=== PATIENT | male | born 1955 | race Caucasian/White ===

== ENCOUNTER → 2017-08-31 08:41 | Outpatient (CLI) | payer OTHER, SELFPAY ==
--- NOTE | 2017-08-31 | CT_ITS ---
CT abdomen pelvis wo/w con CLINICAL INDICATION: Left lower quadrant pain ORDERING PHYSICIAN: Bandar Dela Cruz MD PATIENT AGE: 61 years COMPARISON: None TECHNIQUE: Axial images obtained with sagittal and coronal reformats. PROCEDURE: Oral Contrast: Gastroview IV Contrast: 75 mL [id number]. FINDINGS: The lung bases are clear. The liver, spleen, adrenal glands, and pancreas have an unremarkable appearance. There are small left renal cysts. No hydronephrosis, suspicious renal mass, or obstructing ureteral calculus evident. Unremarkable appendix. No evidence of intestinal obstruction or free air. There is mild mucosal thickening involving the distal descending colon and sigmoid colon. This could be due to nondistention or due to mild colitis. No evidence of diverticulitis. Postsurgical changes are present involving the right lower abdominal wall which The prostate is enlarged measuring 6.5 x 5.5 cm AP and transverse. No pelvic or abdominal adenopathy. No acute bony anomalies. There is a Schmorl's node involving the superior endplate of L4 with mild sclerosis around the defect. There are few small inguinal lymph nodes IMPRESSION: 1. Mild thickening of the distal descending and sigmoid colon which could be due to nondistention or mild colitis. No evidence of diverticulitis. 2. Enlarged prostate 3. Other nonacute findings as described above.
[2017-08-31 09:39] LABS: Blood Urea Nitrogen 21 mg/dL (7-18); Creatinine,Serum 1.02 mg/dL (0.70-1.30); Estimated Glomerular Filt Rate 74 ml/min (>60); GFR (African American) 90 ML/MIN (>60)
--- NOTE | 2017-08-31 11:48 | HMH.ITSHM ---
blood pressure pill prostate pill
== END ==
PROVIDERS: PCP Internal Medicine Adolescent Medicine; Visit Provider Internal Medicine Adolescent Medicine
DX: R10.32 Left lower quadrant pain (principal)
CPT/HCPCS: 36415; 74170; 74178; 82565; 84520; Q9967

== ENCOUNTER 2017-11-07 09:39 | Day surgery (SDC) | payer OTHER, SELFPAY ==
[2017-11-02 11:06] VITALS: BMI 29.1
[2017-11-07] VITALS (8 sets, daily range): BP systolic 115–142; BP diastolic 60–80; PULSE 45–52; RESP 18; TEMP 36.6–36.7; O2SAT 96–99
--- NOTE | 2017-11-07 12:52 | HMH.PROC ---
[facility] Procedure Note Procedure Note:: Colonoscopy Procedure Report: Colonoscopy with cold snare polypectomy Endoscopist: Meliton Guerrero II, MD Referring physician: Bandar Dela Cruz M.D. Date of Procedure: November 07, 2017 Equipment: Olympus 180 variable stiffness pediatric colonoscope Sedation: MAC sedation Indication: Mr. Palomino is a 61-year-old gentleman who is here for initial screening colonoscopy. He has had a few bouts of diverticulitis and his last bout was 3 months ago. He received antibiotics. He does have some intermittent rectal bleeding from internal hemorrhoids. He has some chronic constipation. He reports no weight loss, change in his bowel habits or family history of colon cancer. Procedure: Prior to the procedure, a history and physical exam was performed, and patient's medications and allergies were reviewed. The risks, benefits and alternatives of the sedation and procedure were discussed with the patient. All questions were answered and informed consent was obtained. The patient was brought to the procedure room. Patient identification and proposed procedure were verified by the physician and the nurse. The patient was placed in a left lateral decubitus position and the scope was passed under direct vision. Throughout the procedure, the patient's blood pressure, pulse, and oxygen saturations were monitored continuously. The colonoscopy was accomplished without difficulty. The patient tolerated the procedure well. Findings: On digital rectal examination there was normal rectal tone. There were no external hemorrhoids. The colonoscope was introduced through the anal canal to the rectum and advanced to the cecum. The ileocecal valve and appendiceal orifice were identified. The scope was advanced a short distance into the ileum which appeared grossly normal. The scope was then withdrawn into the colon. There were 3 colon polyps identified in the ascending ?1, descending ?1 and sigmoid ?1. These ranged in size from 5-8 mm and were all removed via cold snare polypectomy and all placed in the same formalin jar. There were scattered diverticuli throughout the descending and sigmoid colon (LEFT colon). The rectum itself was normal. Upon retroflexion within the rectum there were grade 2 internal hemorrhoids. Impression: 1. Colonic polyps ?3 2. Left-sided diverticulosis 3. Grade 2 internal hemorrhoids Plan: I will follow up the polyp pathology and recommend repeat colonoscopy again in 5 years based upon the polyp histology. I would encourage fiber bulk supplementation with Konsyl powder (1 tablespoon) every morning on a long-term daily maintenance basis.
--- NOTE | 2017-11-07 15:27 | HMH.ANESCL ---
[facility] Anesthesia Checklist - Patient Identification Patient Identification: Arm Band - Structural Data Admitted From: Home Planned Operative Procedure/s: colonoscopy Consent for Planned Operative Procedure(s) Verified: Yes Verified Documents: Surgical Consent, History and Physical - NPO Status Verified Time NPO: 00:00 - Additional verifications Anesthesia Reactions: No - Airway Assessment C-Spine Mobility Assessed: Yes (mp2) TMJ Mobility Assessed: Yes Dentition: Good Dentition - Neurological Assessment Level of Consciousness: Awake, Alert - Anesthesia Plan Anesthesia Risk discussed: Yes Anesthesia Plan: Verified ASA Class: I Anesthesia Type: MAC [facility] Anesthesia HX I have reviewed the patient's past medical history: Yes Medical History: Reports:: Hypertension Denies:: Diabetes Mellitus Type 1, Diabetes Mellitus Type 2, Internal Pacemaker, Lung Disease, Seizures Other Medical History: Reports: Sinus Problems Laterality Cases: Left: Arthroscopy Knee Other Surgeries: Yes: Hernia Repair. No: Pacemaker *Family Hx:: Cancer, Heart Attack
== END 2017-11-07 13:50 | disposition home or self-care (01) ==
LOC: OUTP 09:42
PROVIDERS: Family Provider Internal Medicine Adolescent Medicine; PCP Internal Medicine Adolescent Medicine; Visit Provider Internal Medicine Gastroenterology
PROC: 0DJD8ZZ Inspection of Lower Intestinal Tract, Via Natural or Artificial Opening Endoscopic (ICD-10-PCS; CPT 45378; principal; 2017-11-07 11:00)
DX: Z12.11 Encounter for screening for malignant neoplasm of colon (principal); K63.5 Polyp of colon; K57.30 Diverticulosis of large intestine without perforation or abscess without bleeding; K64.1 Second degree hemorrhoids
CPT/HCPCS: 45385

== ENCOUNTER → 2017-12-07 08:37 | Outpatient (CLI) | payer OTHER, SELFPAY ==
--- NOTE | 2017-12-07 08:39 | XR_ITS ---
XR foot wt bearing LT 3V HISTORY: Left foot pain ORDERING PHYSICIAN: Seema Montiel DPM PATIENT AGE: 61 years COMPARISON: None FINDINGS: No fracture or dislocation. No lytic or blastic change. There is normal mineralization.. The joint spaces are well-preserved. No significant degenerative/arthritic changes. No erosive changes evident. There is a small calcaneal spur at 6 mm. A linear calcific density is present along the dorsal distal aspect of the first metatarsal as seen on the lateral view measuring 2 mm nonspecific. IMPRESSION: No acute finding. Please see above for detail
--- NOTE | 2017-12-07 08:39 | XR_ITS ---
XR foot wt bearing RT 3V HISTORY: Right foot pain ORDERING PHYSICIAN: Seema Montiel DPM PATIENT AGE: 61 years COMPARISON: None FINDINGS: No fracture or dislocation. No lytic or blastic change. There is normal mineralization.. The joint spaces are well-preserved. No significant degenerative/arthritic changes. No erosive changes evident. There is a small calcaneal spur . Hypertrophic changes are present at the distal aspect of the first metatarsal IMPRESSION: 1. No acute finding. 2. Small calcaneal spur with mild hypertrophic changes of the distal aspect of the first metatarsal
== END ==
PROVIDERS: PCP Internal Medicine Adolescent Medicine; Visit Provider Podiatrist
DX: B35.1 Tinea unguium (principal); M79.673 Pain in unspecified foot
CPT/HCPCS: 73630; 87102; 87206; 87220

== ENCOUNTER 2018-08-12 13:54 | Observation (INO) ==
--- NOTE | 2018-08-12 14:38 | History & Physical Report ---
*Admission Date: 08/12/18 *Chief complaint: Syncope and fascicular block *History of present illness: Mr. Palomino is a 62-year-old male who presented to clinic earlier today due to syncope last night at a restaurant. Patient states that he was eating at a barbecue restaurant when he began to feel confused, dizzy, and next thing he knows he woke up on the floor. He reports his noted that he had a blank stare on his face prior to passing out. He was out momentarily before coming to. EMS was contacted and upon arrival perform an EKG that was essentially normal per his report, blood sugar of 70. He declined further treatment and transfer to an ER at that time. He presented to clinic this morning for assessment where EKG was obtained showing partial right bundle branch block and left anterior fascicular block. In the setting of syncope with these findings, patient was admitted for further assessment and cardiology consult. Patient being monitored on telemetry. Cardiology to see this afternoon. Has chest pain, shortness of breath, palpitations, fever, cough, lower extremity edema. Does complain of still feeling a little "off" and not quite at baseline [facility] History I have reviewed the patient's past medical history: Yes Medical History: Reports:: Hypertension Denies:: Diabetes Mellitus Type 1, Diabetes Mellitus Type 2, Internal Pacemaker, Lung Disease, Seizures Other Medical History: Reports: Sinus Problems Laterality Cases: Left: Arthroscopy Shoulder Other Surgeries: Yes: Hernia Repair. No: Pacemaker Amputation: No Fractures: No - *Social History Smoking Status: Never smoker Alcohol Intake: never Alcohol Intake Frequency:: other *Family Hx:: Cancer, Heart Attack Review of Systems - Review of Systems Review of systems:: pertinent systems reviewed and negative unless documented below Meds Home Medications Medication Instructions Recorded Confirmed Type bisoprolol fumarate 5 mg tablet 2.5 mg PO DAILY 30 Days #30 10/17/17 06/05/18 History tamsulosin 0.4 mg capsule 0.4 mg PO DAILY 30 Days #30 10/17/17 06/05/18 History linaclotide 72 mcg capsule PO 30 Days #30 12/07/17 06/05/18 History meloxicam 15 mg tablet PO 30 Days #30 12/07/17 06/05/18 History diclofenac 1 % topical gel 4 g TOPICAL QID #30 g 03/21/18 06/05/18 Rx ciclopirox 8 % topical solution 1 applic TOPICAL DAILY 60 Days 06/05/18 06/05/18 Rx #6.6 ml meloxicam 15 mg tablet 15 mg PO ONCE #30 tab 06/05/18 06/05/18 Rx Allergies Allergy/AdvReac Type Severity Reaction Status Date / Time No Known Allergies Allergy Verified 06/05/18 11:11 Exam - *Routine HEENT Exam Head: Present: normocephalic, atraumatic Eye: Present: EOMI, PERRL ENT: Present: mucous membranes moist - *Routine Neck Exam Present: supple. Absent: JVD - *Routine Respiratory Exam Present: CTA bilaterally. Absent: prolonged expiratory phase, rales, wheezes, crackles - *Routine Cardiovascular Exam Present: RRR, Normal S1, Normal S2. Absent: murmur - *Routine Abdominal Exam Present: soft, normoactive bowel sounds. Absent: tenderness - *Routine Rectal Exam Patient deferred: visual exam - *Routine Exam Patient deferred: penile exam - *Routine Extremities Exam Absent: cyanosis, clubbing, edema - *Routine Skin Exam Present: intact. Absent: cyanosis, erythema - *Routine Neurological Exam Present: alert, oriented X3. Absent: altered mental status Assessment and Plan (1) Left anterior fascicular block Current visit: Yes Status: Acute Category: Medical Code(s): I44.4 - Left anterior fascicular block Admitted to medicine Cardiology consulted Monitor on telemetry overnight Does not meet gus criteria for pacer placement as his right bundle branch block is incomplete. If no further events, will proceed with outpatient cardiac monitoring. If has further episodes such as bradycardia or syncope, will proceed to [facility]istered [facility] for placement of pacemaker tomorrow. (2) Incomplete right bundle branch block (RBBB) determined by eric ctrocardiography Current visit: Yes Status: Acute Category: Medical Code(s): I45.10 - Unspecified right bundle-branch block (3) Hypertension Current visit: Yes Status: Chronic Qualifiers: Hypertension type: essential hypertension Qualified Code(s): I10 - Essential (primary) hypertension Category: Medical Code(s): I10 - Essential (primary) hypertension Continue home regimen (4) Syncope Current visit: Yes Status: Acute Category: Medical Code(s): R55 - Syncope and collapse
[2018-08-12 15:18] LABS: Basophils # 0.1 K/mm3 (0-0.2); Basophils % 0.8 % (0.1-2.0); Eosinophils # 0.2 K/mm3 (0.0-0.4); Eosinophils % 2.7 % (0.1-12.0); Hemoglobin 14.3 g/dL (14.1-18.0); Lymphocytes # 1.3 K/mm3 (0.7-4.5); Lymphocytes % 18.8 % (10-50); Mean Corpuscular HGB Conc 31.7 g/dL (31.8-35.4); Mean Corpuscular Hemoglobin 28.4 pg (27.0-31.2); Mean Corpuscular Volume 89.5 fl (80-94); Mean Platelet Volume 7.5 fl (7.4-10.4); Monocytes # 0.4 K/mm3 (0.1-1.0); Monocytes % 5.7 % (1.7-9.3); Neutrophils # 4.9 K/mm3 (1.8-7.8); Neutrophils % 72.1 % (37.0-80.0); Platelet Count 184 K/mm3 (142-424); Red Blood Count 5.02 M/mm3 (4.60-6.20); Red Cell Distribution Width 13.6 % (11.5-17.5); White Blood Count 6.8 K/mm3 (4.8-10.8)
[2018-08-12 15:22] LABS: INR 0.97 (0.9-1.1)
[2018-08-12 15:40] LABS: Anion Gap 12.1 mEq/L (5-15); Calcium 8.8 mg/dL (8.5-10.1); Potassium 4.1 mmoL/L (3.5-5.1)
--- NOTE | 2018-08-12 23:33 | Discharge Summary ---
General - General Admission date:: 08/12/18 Discharge date: 08/13/18 HPI HPI: Mr. Palomino is a 62-year-old male who presented to clinic earlier today due to syncope last night at a restaurant. Patient states that he was eating at a barbecue restaurant when he began to feel confused, dizzy, and next thing he knows he woke up on the floor. He reports his noted that he had a blank stare on his face prior to passing out. He was out momentarily before coming to. EMS was contacted and upon arrival perform an EKG that was essentially normal per his report, blood sugar of 70. He declined further treatment and transfer to an ER at that time. He presented to clinic this morning for assessment where EKG was obtained showing partial right bundle branch block and left anterior fascicular block. In the setting of syncope with these findings, patient was admitted for further assessment and cardiology consult. Patient being monitored on telemetry. Cardiology to see this afternoon. Has chest pain, shortness of breath, palpitations, fever, cough, lower extremity edema. Does complain of still feeling a little "off" and not quite at baseline Hospital Course Hospital Course: Mr. Lei was admitted to medicine for management of his syncope and EKG findings concerning for bifascicular block. Etiology was consulted upon admission. Further review of EKG with assistance of cardiology should patient did not have complete bifascicular block however was a partial bike this evening strict EKG criteria for placement of a pacemaker. Patient was monitored on telemetry overnight for further events and for symptomatic bradycardia. He had no further events, felt improved the following morning of admission. Decision was made with cardiology to have the patient follow-up on Tuesday in the outpatient setting to have the placement of a "guardian" device (prolonged athletic monitor) to assess for further episodes. Patient remained hemodynamically stable. Denied confusion, chest pain, shortness of breath, palpitations, syncope, fatigue, focal neurologic changes. Otherwise at his baseline. Stable for discharge home Objective Vital signs: Temp Pulse Resp BP Pulse Ox 98.4 F 55 L 18 126/65 96 08/12/18 20:00 08/12/18 20:00 08/12/18 20:00 08/12/18 20:00 08/12/18 20:00 Narrative: Well-appearing man of stated age Alert and oriented x3, no focal neurologic deficits, CN II through XII intact Heart rate regular, pulses 2+ bilaterally and in upper and lower extremities, no murmurs rubs or gallops Clear to auscultation, no wheeze rhonchi or crackles Abdomen soft, nontender No lower extremity edema, cyanosis, clubbing, dry and intact Patient with normal mood and affect, Results Labs on day of discharge: Labs from last 24 hours 08/12/18 08/12/18 08/12/18 15:08 15:08 15:08 WBC 6.8 RBC 5.02 Hgb 14.3 Hct 45.0 MCV 89.5 MCH 28.4 MCHC 31.7 L RDW 13.6 Plt Count 184 MPV 7.5 Neut % (Auto) 72.1 Lymph % (Auto) 18.8 Greer % (Auto) 5.7 Eos % (Auto) 2.7 Baso % (Auto) 0.8 Neut # (Auto) 4.9 Lymph # (Auto) 1.3 Greer # (Auto) 0.4 Eos # (Auto) 0.2 Baso # (Auto) 0.1 PT 10.0 INR 0.97 Sodium 139 Potassium 4.1 Chloride 104 Carbon Dioxide 27 Anion Gap 12.1 BUN 27 H Creatinine 1.13 Estimated Creat Clear 91 Estimated GFR 66 Est GFR ( Amer) 80 Glucose 94 Calcium 8.8 DS: Diagnosis - Discharge Diagnosis (1) Left anterior fascicular block Status: Acute (2) Incomplete right bundle branch block (RBBB) determined by electrocardiography Status: Acute (3) Hypertension Status: Chronic (4) Syncope Status: Acute Problem details: Follow-up with cardiology Tuesday for placement of cardiac monitoring device. No episodes during admission. Stable for discharge home. Patient to continue bisoprolol, 2.5 mg once a day. Follow-up with PCP within the next week Discharge Plan - Patient Discharge Instructions Patient Instructions: DI for Syncope in Adults (Fainting) - Follow up Plan Follow up with: Anthony Jimenez MD [Staff Physician] - 1 week Hernandez Shirley MD [Staff Physician] - (Tuesday08/14/18) Disposition: Home, Self-[facility] Medications: Home Medications Medication Instructions Recorded Confirmed Type bisoprolol fumarate 5 mg tablet 2.5 mg PO DAILY 30 Days #30 10/17/17 08/12/18 History tamsulosin 0.4 mg capsule 0.4 mg PO DAILY 30 Days #30 10/17/17 08/12/18 History meloxicam 15 mg tablet 15 mg PO DAILY 30 Days #30 12/07/17 08/12/18 History diclofenac 1 % topical gel 4 g TOPICAL QID #30 g 03/21/18 08/12/18 Rx Prescriptions/Medication Reconciliation: Continue bisoprolol fumarate 5 mg tablet 2.5 mg PO DAILY 30 Days #30 tamsulosin 0.4 mg capsule 0.4 mg PO DAILY 30 Days #30 meloxicam 15 mg tablet 15 mg PO DAILY 30 Days #30 diclofenac 1 % topical gel 4 g TOPICAL QID #30 g
--- NOTE | 2018-08-13 10:49 | Pharmacy Consult Notes ---
[facility] Pharmacy VTE Monitoring - Patient Demographics Admission date: 08/12/18 Report Date: 08/13/18 Time: 10:49 Allergies/Adverse Reactions: Patient Allergies No Known Allergies Allergy (Verified 06/05/18 11:11) Height: 1.83 m Weight: 94.432 kg Patient Problems: Current Active Problems Left anterior fascicular block (Acute) Incomplete right bundle branch block (RBBB) determined by electrocardiography (Acute) Hypertension (Chronic) Syncope (Acute) - VTE Risk Labs: VTE Related Lab Results Hgb 14.3 g/dL (14.1-18.0) 08/12/18 15:08 Hct 45.0 % (42.0-52.0) 08/12/18 15:08 Plt Count 184 K/mm3 (142-424) 08/12/18 15:08 PT 10.0 seconds (9.4-11.8) 08/12/18 15:08 INR 0.97 (0.9-1.1) 08/12/18 15:08 BUN 27 mg/dL (7-18) H 08/12/18 15:08 Creatinine 1.13 mg/dL (0.70-1.30) 08/12/18 15:08 Estimated Creat Clear 91 mL/min (50-200) 08/12/18 15:08 Was VTE Risk Assessment Performed: No VTE Score: 1 VTE Risk Level: Very Low Risk - Prophylaxis VTE Prophylaxis Ordered?: Yes Types of VTE Prophylaxis: TEDS Knee High Location of Applied Device: Bilateral Lower Extremeties
== END 2018-08-13 10:35 | disposition home or self-care (01) ==
LOC: 2ND
PROVIDERS: ADMIT Internal Medicine Adolescent Medicine; ATTEND Internal Medicine Adolescent Medicine
CPT/HCPCS: 80048; 85025; 85610; G0378

== ENCOUNTER → 2018-08-14 10:39 | Outpatient (CLI) | payer OTHER, SELFPAY | PROVIDERS: PCP Internal Medicine Adolescent Medicine; Visit Provider Nurse Practitioner Family | DX: R55 Syncope and collapse (principal); Z82.49 Family history of ischemic heart disease and other diseases of the circulatory system; R94.31 Abnormal electrocardiogram [ECG] [EKG]; I10 Essential (primary) hypertension | CPT/HCPCS: 93270 ==

== ENCOUNTER → 2018-08-22 07:40 | Outpatient (CLI) | payer OTHER, SELFPAY ==
--- NOTE | 2018-08-22 07:45 | CA_ITS ---
PROCEDURE: 2-D M-mode and color Doppler study INDICATIONS FOR THE TEST: Chest pain COPD Heart Murmur Tobacco Smoking Palpitations Fatigue SyncopeX Edema HypertensionXDiabetes Mellitus Rheumatic Fever SOB THOMAS Obesity Hyperlipidemia Family History HD Additional History ABN EKG PATIENT INFORMATION HEIGHT:75 WEIGHT:214 GENDER: Male B/P:134/68 2-D/M-MODE INTERPRETATION: 2-D MEASUREMENTS OBSERVED VALUES IN CMS Right Ventricular Dimension (RVDd) 2.4 Interventricular Septum (Thickness)(IVsd) 1.0 Left Ventricular Internal Dimensions(LVIDd) 5.4 Left Ventricular Posterior Wall (Thickness)(LVPWd) 1.0 Aortic Root 3.9 Aortic Cusp Separation 2.2 Left Atrial Dimensions (LAD) 3.2 2D 1. Left atrium is mildly enlarged, left ventricle is normal size, there is mild concentric left ventricular hypertrophy, visually estimated to 55% % with no regional wall motion abnormality. 2. The right atrium and right ventricle are normal size and contractility. 3. The aortic valve is minimally thickened and fibrosed, the aortic root is mildly enlarged. 4. The mitral and tricuspid valve are grossly normal. 5. The pulmonic valve is poorly visualized. 6. No significant pericardial effusion noted. DOPPLER INTERROGATION: Doppler interrogation of the aortic, mitral and tricuspid valve reveals presence of mild mitral and tricuspid regurgitation, tricuspid regurgitation jet velocity is inadequate for calculation of ventricular systolic pressure, grade 1 diastolic dysfunction seen with tissue Doppler evidence of raised left atrial pressure. CONCLUSION: 1. Mildly enlarged left atrium, normal left ventricular size, mild concentric left ventricular hypertrophy, visually estimated ejection fraction 55% with no regional wall motion abnormality, grade 1 diastolic dysfunction seen with tissue Doppler evidence of raised left atrial pressure. 2. Mildly enlarged right ventricle normal contractility. 3. Mild mitral and tricuspid regurgitation. 4. No significant pericardial effusion noted.
== END ==
PROVIDERS: PCP Internal Medicine Adolescent Medicine; Visit Provider Internal Medicine
DX: I10 Essential (primary) hypertension (principal); R55 Syncope and collapse; R94.31 Abnormal electrocardiogram [ECG] [EKG]; Z82.49 Family history of ischemic heart disease and other diseases of the circulatory system
CPT/HCPCS: 93017; 93306

== ENCOUNTER → 2019-05-04 11:30 | Outpatient (CLI) | payer OTHER, SELFPAY ==
[2019-05-04 12:14] LABS: Basophils % 0.5 % (0.1-2.0); Eosinophils # 0.1 K/mm3 (0.0-0.4); Eosinophils % 1.5 % (0.1-12.0); Hematocrit 44.8 % (42.0-52.0); Hemoglobin 14.1 g/dL (14.1-18.0); Lymphocytes # 1.1 K/mm3 (0.7-4.5); Lymphocytes % 18.4 % (10-50); Mean Corpuscular HGB Conc 31.5 g/dL (31.8-35.4); Mean Corpuscular Hemoglobin 28.4 pg (27.0-31.2); Monocytes # 0.3 K/mm3 (0.1-1.0); Monocytes % 5.4 % (1.7-9.3); Neutrophils # 4.3 K/mm3 (1.8-7.8); Neutrophils % 74.2 % (37.0-80.0); Platelet Count 231 K/mm3 (142-424); Red Blood Count 4.98 M/mm3 (4.60-6.20); Red Cell Distribution Width 13.5 % (11.5-17.5); White Blood Count 5.8 K/mm3 (4.8-10.8)
[2019-05-04 13:50] LABS: Alanine Aminotransferase 19 U/L (12-78); Albumin Level 4.1 gm/dL (3.4-5.0); Alkaline Phosphatase 58 U/L (46-116); Anion Gap 14.5 mEq/L (5-15); Aspartate Amino Transferase 18 U/L (15-37); Bilirubin,Direct 0.2 mg/dL (0.0-0.2); Bilirubin,Indirect 0.6 mg/dL (0.0-0.9); Bilirubin,Total 0.8 mg/dL (0.2-1.0); Blood Urea Nitrogen 24 mg/dL (7-18); Calcium 9.1 mg/dL (8.5-10.1); Carbon Dioxide 25 mmol/L (21.0-32.0); Chloride 102 mmol/L (98-107); Cholesterol 190 mg/dL (140-200); Estimated Glomerular Filt Rate 75 ml/min (>60); Free T4 (Free Thyroxine) 1.27 ng/dl (0.76-1.46); GFR (African American) 91 ML/MIN (>60); Glucose 86 mg/dL (74-106); HDL Cholesterol 64 mg/dL (27-67); LDL Cholesterol 118 mg/dL (0-130); Potassium 4.5 mmoL/L (3.5-5.1); Sodium 137 mmol/L (136-145); Thyroid Stimulating Hormone 1.15 uIU/ml (0.358-3.740); Total Protein,Serum 6.8 gm/dL (6.4-8.2); Triglycerides 40 mg/dL (30-200); VLDL Cholesterol 8 mg/dL (0-40)
== END ==
PROVIDERS: Visit Provider Nurse Practitioner Family
DX: I10 Essential (primary) hypertension (principal); R06.00 Dyspnea, unspecified; R07.89 Other chest pain
CPT/HCPCS: 36415; 80048; 80061; 80076; 84439; 84443; 85025

== ENCOUNTER → 2019-05-16 12:50 | Outpatient (CLI) | payer OTHER, SELFPAY ==
--- NOTE | 2019-05-16 | CA_ITS ---
APPROVED REPORT Exam: Exercise Treadmill Technologist: Evelyn Obrien Ht: 6 ft 0 in Wt: 218 lbs BSA: 2.21 m2 HR: 67 bpm BP: 144/78 mmHg Indications: Chest pain, Shortness of Breath Medical History Medications: Diclofenac,,,,, Stress Test Details Test: Manual Treadmill HR Resting HR: 75 bpm Max Heart Rate (APMHR): 157 bpm Max HR Achieved: 151 bpm Target HR (85% APMHR): 133 bpm % of APMHR: 96 Recovery HR: 92 bpm BP Resting BP: 144.0/78.0 mmHg Max BP: 175.0/70.0 mmHg Recovery BP: 146.0/74.0 mmHg ECG Clinical Exercise duration: 09:28 min Highest Stage Achieved: Exercise capacity: 10.1 METs Stress ECG Conclusion Resting ECG: Normal sinus rhythm, poor R wave progression Patient exercised 9:28 Farshad Protocol Test stopped due to shortness of air, fatigue Symptoms: No chest pain Arrhythmias/Ectopy: None ST-T Changes: Allowing for motion artifact, the ST response to exerciseis normal. Test Summary RECOVERY 03:00 0.0 0.0 106 . . . . REST 13:04 0.0 0.0 75 . 144/ 78 . . Stage 1 01:00 10.0 1.7 93 . . . . Stage 1 02:00 10.0 1.7 103 . . . . Stage 1 03:00 10.0 1.7 100 . 156/ 70 . . Stage 2 01:00 12.0 2.5 113 . . . . Stage 2 02:00 12.0 2.5 118 . . . . Stage 2 03:00 12.0 2.5 120 . 175/ 70 . . Stage 3 01:00 14.0 3.4 130 . . . . Stage 3 02:00 14.0 3.4 138 . . . . Stage 3 03:00 14.0 3.4 142 . 172/ 70 . . Stage 4 00:28 16.0 4.2 117 . . . Stop exercise at 09:28 RECOVERY . . . . . . . Protocol changed to Manual Treadmill RECOVERY 01:00 0.0 0.0 130 . . . . RECOVERY 02:00 0.0 0.0 113 . . . . RECOVERY 03:00 0.0 0.0 106 . . . . RECOVERY 04:00 0.0 0.0 93 . . . . RECOVERY 05:00 0.0 0.0 91 . . . . RECOVERY 06:00 0.0 0.0 96 . . . . RECOVERY 06:10 0.0 0.0 94 . . . . Electronically signed by : Danis Forman, 05/17/2019 15:25:39
--- NOTE | 2019-05-16 12:52 | CA_ITS ---
APPROVED REPORT EXAM: Comprehensive 2D, Doppler, and color-flow Echocardiogram Manager Of Photography: Tahmina Mcdowell RT(R) Ht: 6 ft 0 in Wt: 215lbs BSA: 2.20 BP: 137/85 mmHg Indications: Shortness of Breath R06.02, Hypertension I10, Syncope R55, Chest Pain R07.89 Echo Findings The Pre-Stress Echocardiogram showed normal left ventricular contractility with an estimated Ejection Fraction of about >55%. The Post-Stress Echocardiogram showed normal left ventricular contractility with an estimated Ejection Fraction of about 60-65%. There is no exercise-induced segmental wall motion abnormality to suggest underlying ischemic heart disease. Other Information Study Quality: Fair Conclusion 1. The resting echocardiogram showed normal left ventricular systolic function. 2. With exercise there is increase in contractility of all the segments of the myocardium with hyperdynamic left ventricular systolic response, no segmental wall motion abnormality to suggest underlying ischemic heart disease.
== END ==
PROVIDERS: PCP Internal Medicine Adolescent Medicine; Visit Provider Nurse Practitioner Family
DX: I10 Essential (primary) hypertension (principal); R06.00 Dyspnea, unspecified; R07.89 Other chest pain
CPT/HCPCS: 93017; 93350

== ENCOUNTER → 2019-09-24 12:44 | Outpatient (CLI) | payer OTHER, SELFPAY ==
--- NOTE | 2019-09-24 12:48 | XR_ITS ---
PROCEDURE: XR CHEST 2V CLINICAL HISTORY: COUGH COMPARISON: CXR CHEST(2 VIEWS-NOT PORTABLE) from 05/29/2016 CXR CHEST(2 VIEWS-NOT PORTABLE) from 06/09/2016 FINDINGS: The cardiomediastinal silhouette and pulmonary vascularity are within normal limits. The lungs are clear without infiltrates, suspicious nodules, or pleural effusions. Are old fractures of the right 5th 6th and 7th ribs IMPRESSION: No acute findings. Dictated by: Hugh Bella MD 09/24/2019 14:06 Electronically signed by Hugh Bella MD in [place] 09/24/2019 14:06
== END ==
PROVIDERS: PCP Internal Medicine Adolescent Medicine; Visit Provider Internal Medicine Adolescent Medicine
DX: R05 Cough (principal)
CPT/HCPCS: 71046

== ENCOUNTER → 2019-10-01 08:28 | Outpatient (CLI) | payer OTHER, SELFPAY ==
--- NOTE | 2019-10-01 08:40 | US_ITS ---
PROCEDURE: US ABDOMEN COMPLETE CLINICAL INDICATION: RUQ PAIN,GB DISEASE COMPARISON: No exams were available for comparison FINDINGS: PANCREAS: Unremarkable. No obvious mass or abnormal fluid collection. No ductal dilatation LIVER: No focal liver lesions demonstrated. There is diffuse increased echogenicity consistent with fatty infiltration. Homogeneous echogenicity. No intrahepatic biliary ductal dilatation evident. There is appropriate direction of blood flow within a non dilated portal vein RIGHT KIDNEY: Unremarkable. Normal size and echogenicity. No hydronephrosis LEFT KIDNEY: Unremarkable. Normal size and echogenicity. No hydronephrosis GALLBLADDER: No gallstones, gallbladder wall thickening, pericholecystic fluid, or biliary dilatation. AORTA: No evidence of aneurysmal dilatation. SPLEEN: Unremarkable. Normal size and echogenicity ASCITES: None demonstrated. IMPRESSION: No acute findings. Fatty infiltration of the liver Dictated by: Cristo Nunez 10/01/2019 10:32 Electronically signed by Cristo Nunez in [place] 10/01/2019 10:32
== END ==
PROVIDERS: PCP Internal Medicine; Visit Provider Internal Medicine
DX: R10.11 Right upper quadrant pain (principal); K82.9 Disease of gallbladder, unspecified
CPT/HCPCS: 76700

== ENCOUNTER → 2020-04-22 10:41 | Outpatient (CLI) | payer OTHER, SELFPAY ==
[2020-04-22 10:45] LABS: Microscopic, Urine URINE MICROSCOPIC (MICROSCOPIC)
[2020-04-22 11:09] LABS: Basophils % 0.6 % (0.1-2.0); Eosinophils # 0.3 K/mm3 (0.0-0.4); Eosinophils % 4.4 % (0.1-12.0); Hematocrit 44.2 % (42.0-52.0); Hemoglobin 14.9 g/dL (14.1-18.0); Lymphocytes # 1.3 K/mm3 (0.7-4.5); Lymphocytes % 22.1 % (10-50); Mean Corpuscular HGB Conc 33.7 g/dL (31.8-35.4); Mean Platelet Volume 8.2 fl (7.4-10.4); Monocytes # 0.4 K/mm3 (0.1-1.0); Neutrophils # 3.9 K/mm3 (1.8-7.8); Platelet Count 215 K/mm3 (142-424); Red Blood Count 4.97 M/mm3 (4.60-6.20); Red Cell Distribution Width 13.8 % (11.5-17.5); White Blood Count 5.9 K/mm3 (4.8-10.8)
[2020-04-22 11:10] LABS: Appearance,Urine CLEAR (Clear); Bilirubin,Urine Negative (Negative); Blood, Urine Negative (Negative); Color,Urine DK YELLOW (Yellow); Glucose,Urine (UA) Negative (Negative); Ketones,Urine Negative (Negative); Leukocyte Esterase,Urine Negative (Negative); Nitrate,Urine Negative (Negative); PH,Urine 5.5 (5.0-8.5); Protein,Urine Negative (Negative); Specific Gravity, Urine >= 1.030 (1.005-1.030); Urobilinogen,Urine 0.2 EU/dl (0.2)
[2020-04-22 11:13] LABS: Chloride 106 mmol/L (98-107); Sodium 139 mmol/L (136-145)
[2020-04-22 11:14] LABS: Potassium 5.2 mmoL/L (3.5-5.1)
[2020-04-22 11:16] LABS: Alanine Aminotransferase 32 U/L (12-78); Alkaline Phosphatase 66 U/L (38-126); Amylase 75 U/L (30-110); Anion Gap 11.2 mEq/L (5-15); Aspartate Amino Transferase 26 U/L (17-59); Blood Urea Nitrogen 27 mg/dl (9-20); Carbon Dioxide 27 mmol/L (22.0-30.0); Estimated Glomerular Filt Rate 61 ml/min (>60); GFR (African American) 74 ML/MIN (>60)
[2020-04-22 11:17] LABS: Albumin/Globulin Ratio 1.4 (1.1-1.8); Calcium 9.4 mg/dl (8.4-10.2); Globulin 2.8 g/dL (1.3-3.2); Glucose 104 mg/dl (74-100); Total Protein,Serum 6.8 g/dl (6.3-8.2)
[2020-04-22 11:21] LABS: Bacteria,Urine Trace /lpf; Mucus,Urine 2+ /lpf; RBC,Urine Occasional #/hpf (0-3)
== END ==
PROVIDERS: Visit Provider Internal Medicine
DX: R10.9 Unspecified abdominal pain (principal)
CPT/HCPCS: 36415; 80053; 81001; 82150; 85025

== ENCOUNTER 2020-04-25 15:29 | Inpatient (IN) | payer OTHER, SELFPAY ==
[2020-04-25] VITALS (10 sets, daily range): BP systolic 124–160; BP diastolic 65–92; PULSE 61–94; RESP 16–20; TEMP 36.6–37.1; O2SAT 95–99; BMI 29.1; BMI 27.1
--- NOTE | 2020-04-25 15:38 | XR_ITS ---
PROCEDURE: XR CHEST PORTABLE CLINICAL HISTORY: pain COMPARISON: CT CHW CT CHEST W/ CONTRAST from 07/03/2015 CR CXR CHEST(2 VIEWS-NOT PORTABLE) from 05/29/2016 CR CXR CHEST(2 VIEWS-NOT PORTABLE) from 06/09/2016 DX XR CHEST 2V from 09/24/2019 FINDINGS: The cardiomediastinal silhouette and pulmonary vascularity are within normal limits. The lungs are clear without infiltrates, suspicious nodules, or pleural effusions. No acute bony abnormalities. IMPRESSION: No acute findings. Dictated by: Hugh Bella MD 04/25/2020 17:12 Hugh Bella MD in [facility] 04/25/2020 17:12
--- NOTE | 2020-04-25 15:39 | CT_ITS ---
PROCEDURE: CT ABDOMEN PELVIS W CON CLINICAL INDICATION: pain Generalized abdominal pain with nausea COMPARISON: CT ABDPELWW CT abdomen pelvis wo/w con from 08/31/2017 TECHNIQUE: IV Contrast: 75ML OPTIRAY 350 Oral Contrast None Axial images obtained with sagittal and coronal reformats. All CT scans at the facility use one or more dose reduction, viz: automated exposure control, ma/kV adjustment per patient size (including targeted exams where dose is matched to indication, i.e. head), or iterative reconstruction technique. FINDINGS: LOWER THORAX: No acute finding ABDOMEN & PELVIS: The liver has an unremarkable appearance. There is splenomegaly at 15 cm. Gallbladder is slightly distended. There is mild gastric distention of the stomach with fluid. The adrenal glands and pancreas have an unremarkable appearance. No renal or ureteral calculi. There is a 14 mm cyst in the upper pole of the left kidney. There is fluid-filled distal mildly distended small bowel loops which measure up to 3.5 cm in diameter. The small bowel is dilated throughout with the exception of the terminal ileum. There does appear to be a transition point in the right lower quadrant best seen on series 3, image 80 and also series 601, image 31. There is some questionable bowel wall thickening at this transition. Stool and gas is present within the colon. No free air is evident. The appendix has an unremarkable appearance. The colon is decompressed. The prostate measures 5.8 cm x 5.8 cm. Postsurgical changes are present in the right lower quadrant with surgical tacks along the abdominal wall. There does appear to be a small inguinal hernia containing fat on the right. There is mesh present in the right lower quadrant. No acute bony findings. A Schmorl's node is present along the superior endplate of L4. IMPRESSION: 1. Mildly dilated small bowel loops measuring up to 3.5 cm in diameter with air-fluid levels suspicious for small bowel obstruction with suspected transition point in the right lower quadrant. 2. Splenomegaly 3. Postsurgical changes of the right inguinal area with mesh in place with suspected small right direct inguinal hernia containing fat best seen on series 3, image 108 4. Enlarged prostate Dictated by: Hugh Bella MD 04/25/2020 17:04 Hugh Bella MD in [facility] 04/25/2020 17:04
[2020-04-25 15:47] LABS: Microscopic, Urine URINE MICROSCOPIC (MICROSCOPIC)
--- NOTE | 2020-04-25 15:47 | ECG_ITS ---
APPROVED REPORT Exam: Resting ECG HR:63 bpm ECG Measurements Heart Rate 63 AXES PA 172 P 20 QRSd 96 QRS -40 QT 402 T 16 QTc 411 <Conclusion> Normal sinus rhythm Left axis deviation Incomplete right bundle branch block Abnormal ECG Electronically signed by : Bandar Dela Cruz, 04/27/2020 15:00:22
[2020-04-25 15:48] LABS: Appearance,Urine CLEAR (Clear); Basophils % 0.4 % (0.1-2.0); Blood, Urine Negative (Negative); Chloride 101 mmol/L (98-107); Color,Urine YELLOW (Yellow); Eosinophils # 0.2 K/mm3 (0.0-0.4); Eosinophils % 2.4 % (0.1-12.0); Glucose,Urine (UA) Negative (Negative); Hematocrit 52.4 % (42.0-52.0); Hemoglobin 17.6 g/dL (14.1-18.0); Ketones,Urine 2+ (Negative); Leukocyte Esterase,Urine Negative (Negative); Lymphocytes # 1.3 K/mm3 (0.7-4.5); Lymphocytes % 14.3 % (10-50); Mean Corpuscular HGB Conc 33.6 g/dL (31.8-35.4); Mean Corpuscular Hemoglobin 29.9 pg (27.0-31.2); Mean Platelet Volume 7.5 fl (7.4-10.4); Monocytes # 0.5 K/mm3 (0.1-1.0); Monocytes % 5.9 % (1.7-9.3); Neutrophils # 6.7 K/mm3 (1.8-7.8); Neutrophils % 76.9 % (37.0-80.0); Nitrate,Urine Negative (Negative); PH,Urine 5.5 (5.0-8.5); Platelet Count 244 K/mm3 (142-424); Potassium 4.3 mmoL/L (3.5-5.1); Protein,Urine Negative (Negative); Red Blood Count 5.89 M/mm3 (4.60-6.20); Red Cell Distribution Width 13.7 % (11.5-17.5); Sodium 139 mmol/L (136-145); Specific Gravity, Urine >= 1.030 (1.005-1.030); Urobilinogen,Urine 0.2 EU/dl (0.2); White Blood Count 8.8 K/mm3 (4.8-10.8)
[2020-04-25 15:49] LABS: Bilirubin,Urine Negative (Negative)
[2020-04-25 15:51] LABS: Alanine Aminotransferase 25 U/L (12-78); Albumin/Globulin Ratio 1.5 (1.1-1.8); Alkaline Phosphatase 83 U/L (38-126); Amylase 82 U/L (30-110); Anion Gap 15.3 mEq/L (5-15); Aspartate Amino Transferase 28 U/L (17-59); Bilirubin,Total 1.3 mg/dl (0.2-1.3); Blood Urea Nitrogen 23 mg/dl (9-20); Calcium 10.6 mg/dl (8.4-10.2); Carbon Dioxide 27 mmol/L (22.0-30.0); Creatinine Clearance Estimated 86 mL/min (50-200); Estimated Glomerular Filt Rate 61 ml/min (>60); GFR (African American) 74 ML/MIN (>60); Globulin 3.3 g/dL (1.3-3.2); Glucose 108 mg/dl (74-100); Lipase 22 U/L (23-300); Total Protein,Serum 8.3 g/dl (6.3-8.2)
[2020-04-25 16:01] LABS: Mucus,Urine 1+ /lpf; Squamous Epithelial Cell,Urine Occasional #/hpf (0-5)
[2020-04-25 16:04] LABS: Troponin I < 0.01 ng/ml (0.00-0.034)
--- NOTE | 2020-04-25 16:15 | HMH.EDABDPAI ---
ED Disposition Clinical Impression: Small bowel obstruction due to adhesions Disposition: Admitted As Inpatient Condition on Discharge: Serious Instructions: DI for Acute Abdomen Referrals: El Werner [Primary Care Provider] - - Critical Care Critical Care Time: No Attestation: On 04/25/20, the high probability of a clinically significant, sudden or life threatening deterioration of the following system(s) required my full and direct attention, intervention and personal management. The time I documented below is in addition to time spent performing reported procedures but includes the following listed in this critical care notation. Medical Decision Making - Medical Records Medical records reviewed: Yes: I reviewed the patient's medical records. - Chris Inquiry Pt receiving controlled substance: Yes Chris was queried for this patient: No Risks and benefits of using a controlled substance: were discussed with pt by me Vital Signs: 04/25/20 15:30 04/25/20 16:10 04/25/20 16:40 Temperature 97.9 F Temperature Source Oral Pulse Rate [Left Radial] 65 61 68 Respiratory Rate 16 Blood Pressure [Right Arm] 160/92 H 144/87 H 139/76 Blood Pressure Mean [Right Arm] 114 106 97 Blood Pressure Source [Right Arm] Automatic Cuff Blood Pressure Position [Right Arm] Sitting Sitting Sitting 02 Sat by Pulse Oximetry 98 98 97 Oxygen Delivery Method Room Air Room Air Room Air 04/25/20 17:21 Temperature Temperature Source Pulse Rate [Left Radial] 66 Respiratory Rate Blood Pressure [Right Arm] 145/80 H Blood Pressure Mean [Right Arm] 101 Blood Pressure Source [Right Arm] Automatic Cuff Blood Pressure Position [Right Arm] Sitting 02 Sat by Pulse Oximetry 96 Oxygen Delivery Method - Lab Data Lab Results 04/25/20 15:37: WBC 8.8, RBC 5.89, Hgb 17.6, Hct 52.4 H, MCV 89.0, MCH 29.9, MCHC 33.6, RDW 13.7, Plt Count 244, MPV 7.5, Neut % (Auto) 76.9, Lymph % (Auto) 14.3, [place] % (Auto) 5.9, Eos % (Auto) 2.4, Baso % (Auto) 0.4, Neut # (Auto) 6.7, Lymph # (Auto) 1.3, [place] # (Auto) 0.5, Eos # (Auto) 0.2, Baso # (Auto) 0.0 04/25/20 15:37: Sodium 139, Potassium 4.3, Chloride 101, Carbon Dioxide 27, Anion Gap 15.3 H, BUN 23 H, Creatinine 1.20, Estimated Creat Clear 86, Estimated GFR 61, Est GFR ( Amer) 74, Glucose 108 H, Calcium 10.6 H, Total Bilirubin 1.3, AST 28, ALT 25, Alkaline Phosphatase 83, Troponin I < 0.01, Total Protein 8.3 H, Albumin 5.0, Globulin 3.3 H, Albumin/Globulin Ratio 1.5, Amylase 82, Lipase 22 L 04/25/20 15:37: Urine Color Yellow, Urine Appearance Clear, Urine pH 5.5, Ur Specific [place] >= 1.030, Urine Protein Negative, Urine Glucose (UA) Negative, Urine Ketones 2+, Urine Blood Negative, Urine Nitrate Negative, Urine Bilirubin Negative, Urine Urobilinogen 0.2, Ur Leukocyte Esterase Negative, Urine RBC None, Urine WBC None, Ur Squamous Epith Cells Occasional, Urine Bacteria None, Urine Mucus 1+ Result diagrams: 04/25/20 15:37 04/25/20 15:37 Orders (Tests/Meds): ED MEDICATIONS Generic Name Dose Route Start Last Admin Trade Name Freq PRN Reason Stop Dose Admin Sodium Chloride 8 ml 04/25/20 15:40 04/25/20 15:42 Sodium Chloride 0.9% 10ml Vial IV 05/25/20 15:39 8 ml NEEDED PRN Administration dilute pepcid Discontinued Medications Generic Name Dose Route Start Last Admin Trade Name Freq PRN Reason Stop Dose Admin Famotidine 20 mg 04/25/20 15:40 04/25/20 15:42 Pepcid 20mg/2ml Vial IV 04/25/20 15:41 20 mg ONCE ONE Administration Sodium Chloride 1,000 mls @ 999 mls/hr 04/25/20 16:00 04/25/20 15:53 Sod Chlor 0.9% 1000ml Bag IV 04/25/20 17:00 999 mls/hr .Q1H1M DORINDA Administration Ioversol 75 ml 04/25/20 16:39 04/25/20 16:40 Rad-Optiray 350 100ml Vial IV 04/25/20 16:40 75 ml ONCE ONE Administration Protocol Metoclopramide HCl 10 mg 04/25/20 15:40 04/25/20 15:42 Reglan 10mg/2ml Vial IVP 04/25/20 15:41 10 mg ONCE ONE Administ
--- NOTE | 2020-04-25 16:25 | PC.NURSE ---
Pt with rad.
--- NOTE | 2020-04-25 16:39 | PC.NURSE ---
Pt returned from rad.
--- NOTE | 2020-04-25 17:19 | PC.NURSE ---
LEOLA ESQUEDA speaking with the surgeon software solutions architect at this time.
--- NOTE | 2020-04-25 17:20 | PC.NURSE ---
Dr Maddison hester who is diamond finishing supervisor for Lanie who is covering for service.
--- NOTE | 2020-04-25 17:21 | PC.NURSE ---
Dr anthony returned call
--- NOTE | 2020-04-25 17:24 | PC.NURSE ---
Claims Director admitting pt at this time.
--- NOTE | 2020-04-25 17:36 | PC.NURSE ---
Dr Segura at bedside
--- NOTE | 2020-04-25 17:40 | XR_ITS ---
PROCEDURE: XR CHEST AP CLINICAL HISTORY: NG Tube Placement COMPARISON: CT CHW CT CHEST W/ CONTRAST from 07/03/2015 CR CXR CHEST(2 VIEWS-NOT PORTABLE) from 06/09/2016 DX XR CHEST 2V from 09/24/2019 CR XR CHEST PORTABLE from 04/25/2020 FINDINGS: 1746 hours Nasogastric tube has been placed. The tip is in good position in the region of the body of the stomach. There are mildly distended small bowel loops noted with air-fluid levels. IMPRESSION: NG tube tip in the region of the body of the stomach Dictated by: Hugh Bella MD 04/25/2020 18:15 Hugh Bella MD in [place] 04/25/2020 18:15
--- NOTE | 2020-04-25 17:52 | HMH.GSCON ---
*Admission Date: 04/25/20 *Reason for consult:: Bowel obstruction *History of present illness: Patient is a very pleasant 64-year-old white male. He states that about 8 days ago he had onset of significant abdominal pain. This resolved somewhat and he has had general abdominal ache for the past several days subsequently. He states however yesterday evening he had recurrent onset of severe abdominal pain. He has had some nausea but no vomiting. He has passed some gas but has not moved his bowels for 5 days. He states that it is not uncommon for him to not move his bowels for several days as described. He did undergo a colonoscopy in the past couple of years apparently. He had an open right inguinal hernia repair performed when he was approximately 12 years old and underwent laparoscopic right inguinal hernia repair in 2004. Evaluation in the emergency department revealed findings suspicious for small bowel obstruction with dilated (3.5 cm) fluid-filled small bowel with findings suggestive of decompression in the right lower quadrant distally. There is a possible right inguinal hernia recurrence but no evidence of any bowel involved. He does have a history of diverticulitis . Review of Systems - Review of Systems Review of systems:: pertinent systems reviewed and negative unless documented below - *Neurologic Denies headache(s) [facility] History I have reviewed the patient's past medical history: Yes Medical History: Reports:: Hypertension Denies:: Cancer, Diabetes Mellitus Type 1, Diabetes Mellitus Type 2, Internal Pacemaker, Lung Disease, MRSA, Seizures *Have you ever received a pneumonia vaccine?: No *Have you received a flu vaccine this season?: No Other Medical History: Reports: Sinus Problems Laterality Cases: Left: Arthroscopy Knee, Arthroscopy Shoulder Other Surgeries: Yes: Colonoscopy, Hernia Repair. No: Pacemaker Amputation: No Fractures: No - *Social History Smoking Status: Never smoker Alcohol Intake: current Alcohol Intake Frequency:: a few times a week Substance Use Type: denies use *Occupational Status:: other Housing: other Household Members: other *Travel in the last 8 weeks: None Family Hx:: Cancer, Heart Attack Meds Home Medications Medication Instructions Recorded Confirmed Type tamsulosin 0.4 mg capsule 0.4 mg PO DAILY 30 Days #30 10/17/17 04/25/20 History Amlodipine Besylate [Amlodipine 5 mg PO DAILY 04/25/20 04/25/20 History 5mg tab] Aspirin [Low Dose Aspirin EC] 81 mg PO DAILY 04/25/20 04/25/20 History Allergies Allergy/AdvReac Type Severity Reaction Status Date / Time No Known Allergies Allergy Verified 07/25/19 08:11 Exam Vital signs and Labs for Last 24 Hours: Temp Pulse Resp BP Pulse Ox 97.9 F 94 H 16 139/74 97 04/25/20 15:30 04/25/20 17:35 04/25/20 15:30 04/25/20 17:35 04/25/20 17:35 Laboratory Results - last 24 hr 04/25/20 15:37: WBC 8.8, RBC 5.89, Hgb 17.6, Hct 52.4 H, MCV 89.0, MCH 29.9, MCHC 33.6, RDW 13.7, Plt Count 244, MPV 7.5, Neut % (Auto) 76.9, Lymph % (Auto) 14.3, [place] % (Auto) 5.9, Eos % (Auto) 2.4, Baso % (Auto) 0.4, Neut # (Auto) 6.7, Lymph # (Auto) 1.3, [place] # (Auto) 0.5, Eos # (Auto) 0.2, Baso # (Auto) 0.0 04/25/20 15:37: Sodium 139, Potassium 4.3, Chloride 101, Carbon Dioxide 27, Anion Gap 15.3 H, BUN 23 H, Creatinine 1.20, Estimated Creat Clear 86, Estimated GFR 61, Est GFR ( Amer) 74, Glucose 108 H, Calcium 10.6 H, Total Bilirubin 1.3, AST 28, ALT 25, Alkaline Phosphatase 83, Troponin I < 0.01, Total Protein 8.3 H, Albumin 5.0, Globulin 3.3 H, Albumin/Globulin Ratio 1.5, Amylase 82, Lipase 22 L 04/25/20 15:37: Urine Color Yellow, Urine Appearance Clear, Urine pH 5.5, Ur Specific [place] >= 1.030, Urine Protein Negative, Urine Glucose (UA) Negative, Urine Ketones 2+, Urine Blood Negative, Urine Nitrate Negative, Urine Bilirubin Negative, Urine Urobilinogen 0.2, Ur Leukocyte Esterase Negative, Urine RBC None, Urine WBC None, Ur Squamous Epit
--- NOTE | 2020-04-25 17:52 | PC.NURSE ---
Rad at bedside
[2020-04-25 18:14] LABS: Coronavirus 19 IgG Antibody Negative (Negative); Coronavirus 19 IgM Antibody Negative (Negative)
--- NOTE | 2020-04-25 18:25 | PC.NURSE ---
pt up to bathroom jese well
--- NOTE | 2020-04-25 18:32 | PC.NURSE ---
report called to cassidy whittaker
--- NOTE | 2020-04-25 19:07 | PC.NURSE ---
report given to balaji
--- NOTE | 2020-04-26 03:51 | PC.NURSE ---
Pt has rested well this shift. 18 fr NG tube remains in place per auscultation and is secured at 57cm to the right nare. NG tube is connected to continuous suction with brown and sanguineous drainage. Pt has c/o of abdominal and throat pain from NG tube x2 this shift. PRN pain meds given per OCT. Pt has remained A&Ox4. Lung sounds clear t/o. No signs of edema present on all extremities. Bowel sounds are now active in all 4 quads. Skin remains clean and intact. VSS. No other acute changes or complaints at this time, will continue to monitor.
[2020-04-26 04:00] VITALS: BP 142/68; PULSE 77; RESP 16; TEMP 36.9; O2SAT 96
[2020-04-26 05:42] VITALS: BMI 27.3
--- NOTE | 2020-04-26 06:00 | XR_ITS ---
PROCEDURE: XR ABDOMEN MIN - at 5:50 a.m. Referring Doctor: Adolfo Segura Patient Age:64Y CLINICAL INDICATION: BOWEL OBSTRUCTION follow-up abdominal pain COMPARISON: CT CT ABDOMEN PELVIS W CON from 04/25/2020 at 1623 hours FINDINGS: Flat and upright views of abdomen radiograph compared to CT abdomen 04/25/2020. NG tube is now in place and has decompressed this distended stomach. NG tube passes just through the GE junction with tip just entering the stomach. You may want consider advancing the NG tube slightly to better assure its stable placement within distal stomach. . We continue to see the dilated loop of small bowel all with generous air-fluid level at left upper abdomen. This dilated small bowel measures up to 3.7 mm on today's plain film. This does include some 15-20 percent magnification inherent to plain film. (Versus CT). Additional multiple air-fluid levels within dilated small bowel loops are seen throughout the right abdomen. These dilated bowel loops measuring just over 3 cm I suspect these were nearly totally filled with fluid on yesterday's CT but now with gas in these loops we see more evident air-fluid levels but this overall region of involvement and dilatation would seem similar to yesterday's study. On CT the point of transition seem to be at the right lower quadrant and today's study would suggest the same. There is perhaps less solid stool within the large bowel today than on yesterday's CT. Has there been interval bowel movement? Postsurgical changes noted. . Right pelvis/right inguinal region from previous hernia repair Suggestion of mild atelectasis right lung base IMPRESSION: 1. NG tube just slightly enters the stomach. May want to consider advancing to better secure its position if it remains 2. Mild distal small bowel obstruction pattern persists. . Similar to yesterday with no significant improvement of small-bowel pattern as of yet; NG-tube has decompressed stomach. .. Numerous mild dilated small bowel loops remain evident. increase number of evident air-fluid levels today-reflecting I suspect reflect additional gas within these loops that were totally fluid-filled dilated small bowel loops as seen on yesterday's CT.. Dictated by: Willy Jackman MD 04/26/2020 09:34 Willy Jackman MD in [place] 04/26/2020 09:34
[2020-04-26 07:50] VITALS: O2SAT 96
[2020-04-26 07:59] VITALS: BP 142/69; PULSE 67; RESP 18; TEMP 36.8; O2SAT 98
--- NOTE | 2020-04-26 09:23 | P.CONPHA_ITS ---
[facility] Pharmacy VTE Monitoring - Patient Demographics Admission date: 04/26/20 Report Date: 04/26/20 Time: 09:23 Allergies/Adverse Reactions: Patient Allergies No Known Allergies Allergy (Verified 07/25/19 08:11) Height: 1.83 m Weight: 91.371 kg Patient Problems: Current Active Problems Small bowel obstruction due to adhesions (Acute) - VTE Risk Labs: VTE Related Lab Results Hgb 17.6 g/dL (14.1-18.0) 04/25/20 15:37 Hct 52.4 % (42.0-52.0) H 04/25/20 15:37 Plt Count 244 K/mm3 (142-424) 04/25/20 15:37 BUN 23 mg/dl (9-20) H 04/25/20 15:37 Creatinine 1.20 mg/dl (0.66-1.25) 04/25/20 15:37 Estimated Creat Clear 86 mL/min (50-200) 04/25/20 15:37 VTE Score: 3 VTE Risk Level: Low Risk - Prophylaxis Types of VTE Prophylaxis: TEDS Knee High (SVETLANA HOSE ORDERED)
--- NOTE | 2020-04-26 09:32 | PC.NURSE ---
DR JUSTICE STAPLETON. N/O FOR IVF/. 500ML NS BOLUS X 1 THEN NS @ 150ML/HR CONTINUOUS. PATIENT AWARE. PATIENT HAD PAIN AND NAUSEA THIS MORNING ZOFRAN AND MORPHINE ADMIN PER MAR. PATIENT STILL HAVING MILD DISCOMFORT IN RIGHT FLANK AREA, BUT NAUSEA HAS RESOLVED. PATIENT IS AT BEDSIDE. PATIENT VERY PLEASANT AND COOPERATIVE WITH ASSESSMENT. NO ISSUES AT THIS TIME, SAFETY MEASURES IN PLACE. WILL CONTINUE TO MONITOR.
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
--- NOTE | 2020-04-26 09:46 | P.PN_ITS ---
Subjective Narrative: Patient feels somewhat better with nasogastric tube placed. No flatus. Still complains of abdominal soreness . Progress Note: A&P (1) Small bowel obstruction due to adhesions Status: Acute Current Visit: Yes Assessment and Plan for All Diagnoses:: Advance nasogastric tube based on findings on x-ray and clinical findings. Continue NG tube and IV fluids. Exam Vital signs and Labs for Last 24 Hours: Temp Pulse Resp BP Pulse Ox 98.2 F 67 18 142/69 H 98 04/26/20 07:59 04/26/20 07:59 04/26/20 07:59 04/26/20 07:59 04/26/20 07:59 Laboratory Results - last 24 hr 04/25/20 15:37: WBC 8.8, RBC 5.89, Hgb 17.6, Hct 52.4 H, MCV 89.0, MCH 29.9, MCHC 33.6, RDW 13.7, Plt Count 244, MPV 7.5, Neut % (Auto) 76.9, Lymph % (Auto) 14.3, [place] % (Auto) 5.9, Eos % (Auto) 2.4, Baso % (Auto) 0.4, Neut # (Auto) 6.7, Lymph # (Auto) 1.3, [place] # (Auto) 0.5, Eos # (Auto) 0.2, Baso # (Auto) 0.0 04/25/20 15:37: Sodium 139, Potassium 4.3, Chloride 101, Carbon Dioxide 27, Anion Gap 15.3 H, BUN 23 H, Creatinine 1.20, Estimated Creat Clear 86, Estimated GFR 61, Est GFR ( Amer) 74, Glucose 108 H, Calcium 10.6 H, Total Bilirubin 1.3, AST 28, ALT 25, Alkaline Phosphatase 83, Troponin I < 0.01, Total Protein 8.3 H, Albumin 5.0, Globulin 3.3 H, Albumin/Globulin Ratio 1.5, Amylase 82, Lipase 22 L 04/25/20 15:37: Urine Color Yellow, Urine Appearance Clear, Urine pH 5.5, Ur Specific [place] >= 1.030, Urine Protein Negative, Urine Glucose (UA) Negative, Urine Ketones 2+, Urine Blood Negative, Urine Nitrate Negative, Urine Bilirubin Negative, Urine Urobilinogen 0.2, Ur Leukocyte Esterase Negative, Urine RBC None, Urine WBC None, Ur Squamous Epith Cells Occasional, Urine Bacteria None, Urine Mucus 1+ 04/25/20 15:37: SARS-CoV-2 IgG Ab (Rapid) Negative, SARS-CoV-2 IgM Ab (Rapid) Negative I & O for Last 24 hours: Intake & Output 04/23/20 04/24/20 04/25/20 04/26/20 11:59 11:59 11:59 11:59 Intake Total 0 / 0 Output Total 825 / 825 Balance -825 / -825 Weight 201 lb 7 oz - *Routine Abdominal Exam Present: soft
--- NOTE | 2020-04-26 10:22 | PC.NURSE ---
NG TUBE ADVANCED TO 70CM PER DR MUNIZ ORDER. PATIENT TOLERATED FAIR.
[2020-04-26 16:00] VITALS: BP 139/68; PULSE 65; RESP 19; TEMP 36.8; O2SAT 98
[2020-04-26 19:25] VITALS: BP 154/79; PULSE 83; RESP 18; TEMP 37.3; O2SAT 97
--- NOTE | 2020-04-27 03:41 | PC.NURSE ---
Pt A&OX4 lungs CTA. Pt denies SOA Pt c/o of abd pain medicated per OCT. NG Tube in right nare at 70cm hooked to LWS. BS hypoactive in all quads. Pt rested quietly this shift. @ bedside. VSS
[2020-04-27 04:42] VITALS: BMI 27.2
[2020-04-27 04:43] VITALS: BP 146/58; PULSE 71; RESP 16; TEMP 37.2; O2SAT 97
[2020-04-27 07:51] VITALS: BP 137/67; PULSE 75; RESP 18; TEMP 37.1; O2SAT 97
--- NOTE | 2020-04-27 08:17 | XR_ITS ---
PROCEDURE: XR ACUTE ABDOMEN SERIES CLINICAL INDICATION: Flat plate abd to f/u sbo COMPARISON: CR XR ABDOMEN MIN 2V from 04/26/2020 FINDINGS: The chest film reveals minimal persistent discoid atelectasis at the left base and there appears to be a tiny left pleural effusion. The left upper lung field is clear and right lung field is clear. There is mild cardiomegaly with aortic tortuosity but there is no pulmonary congestion. There is an NG tube seen descending the esophagus with the tip in the upper portion of the stomach. Abdominal film show interval improvement from yesterday's study with decreasing caliber of the mildly dilated small bowel loops seen previously. There now is more gas and stool throughout the colon. The multiple surgical clips are seen right lower quadrant likely from previous ventral hernia repair. There is no evidence of free air. IMPRESSION: Definite interval improvement suggesting resolving small-bowel obstruction Dictated by: Dr. Jayson Ruiz MD 04/27/2020 09:46 Dr. Jayson Ruiz MD in [place] 04/27/2020 09:46
--- NOTE | 2020-04-27 08:18 | HMH.ACPN2 ---
Internal Medicine - PN: Subj *Date: 04/27/20 *Time: 08:18 Interval history: Patient's pain is tolerable. Feels like his abdomen is less bloated. NG tube advanced yesterday without problems. Patient reports a minimal amount of flatus but no stool passage. Exam Vital signs and Labs for Last 24 Hours: Temp Pulse Resp BP Pulse Ox 98.7 F 75 18 137/67 97 04/27/20 07:51 04/27/20 07:51 04/27/20 07:51 04/27/20 07:51 04/27/20 07:51 I & O for Last 24 hours: Intake & Output 04/24/20 04/25/20 04/26/20 04/27/20 11:59 11:59 11:59 11:59 Intake Total 0 / 0 3223 / 3223 Output Total 825 / 825 1525 / 1525 Balance -825 / -825 1698 / 1698 Weight 201 lb 7 oz 201 lb 6 oz Narrative: Alert, comfortable, oriented x3. NG tube in good position in the nasopharynx. Lungs clear, heart rate regular. ENT exam otherwise clear. Neurologic exam nonfocal. Skin without acute rashes. Abdomen is soft, suction sounds from NG tube, diffusely tender Assessment and Plan (1) Small bowel obstruction due to adhesions Current visit: Yes Status: Acute Category: Medical Code(s): K56.50 - Intestinal adhesions [bands], unspecified as to partial versus complete obstruction - Assessment and plan all Dx Assessment and Plan for all problems:: Appreciate surgery input. No appreciable improvement in SBO yesterday. Flatplate pending this morning
--- NOTE | 2020-04-27 08:58 | HMH.GSPN ---
Subjective Narrative: Some minor pain but tolerable. NG advanced yesterday. Passing minimal flatus. Progress Note: A&P (1) Small bowel obstruction due to adhesions Status: Acute Current Visit: Yes Assessment and Plan for All Diagnoses:: Continue NG. May have ice chips and gum. Probable small bowel follow through tomorrow. Exam Vital signs and Labs for Last 24 Hours: Temp Pulse Resp BP Pulse Ox 98.7 F 75 18 137/67 97 04/27/20 07:51 04/27/20 07:51 04/27/20 07:51 04/27/20 07:51 04/27/20 07:51 I & O for Last 24 hours: Intake & Output 04/24/20 04/25/20 04/26/20 04/27/20 11:59 11:59 11:59 11:59 Intake Total 0 / 0 3223 / 3223 Output Total 825 / 825 1525 / 1525 Balance -825 / -825 1698 / 1698 Weight 201 lb 7 oz 201 lb 6 oz - *Routine Abdominal Exam Present: soft
[2020-04-27 16:00] VITALS: BP 147/73; PULSE 64; RESP 19; TEMP 36.8; O2SAT 97
--- NOTE | 2020-04-27 18:00 | PC.NURSE ---
Late entry: Pt alert and oriented and able to make needs known. RR even and unlabored. Lungs cta. NG tube in place and connected to LWS cont. Pt tolerating well. Pain meds given per oct. Zofran given per oct. NGT at 70 cm. Has ambulated in [place] 4 times this shift. Have encouraged ambulation. BS still hypoactive and states passes little flatus. CB in reach and at bedside.
[2020-04-27 20:00] VITALS: BP 144/73; PULSE 66; RESP 14; TEMP 37.9; O2SAT 97
[2020-04-28 04:00] VITALS: BP 140/60; PULSE 64; RESP 14; TEMP 37; O2SAT 95
--- NOTE | 2020-04-28 04:14 | PC.NURSE ---
Pt A&OX4 lungs CTA pt denies SOA . pt c/o of abd pain medicated per OCT. NG tube in right nare hooked to LWS. BS hypoactive in all quads. Pt has ambulated in [place] during this shift. Pt has rested quietly this shift.
[2020-04-28 05:00] VITALS: BMI 27.3
[2020-04-28 06:21] LABS: Chloride 105 mmol/L (98-107); Potassium 3.9 mmoL/L (3.5-5.1); Sodium 137 mmol/L (136-145)
[2020-04-28 06:24] LABS: Anion Gap 12.9 mEq/L (5-15); Carbon Dioxide 23 mmol/L (22.0-30.0); Creatinine Clearance Estimated 96 mL/min (50-200); Estimated Glomerular Filt Rate 85 ml/min (>60); GFR (African American) 103 ML/MIN (>60); Glucose 77 mg/dl (74-100)
[2020-04-28 06:27] LABS: Blood Urea Nitrogen 11 mg/dl (9-20); Calcium 8.4 mg/dl (8.4-10.2)
[2020-04-28 06:42] LABS: Basophils % 0.4 % (0.1-2.0); Eosinophils # 0.2 K/mm3 (0.0-0.4); Eosinophils % 1.8 % (0.1-12.0); Hematocrit 40.9 % (42.0-52.0); Hemoglobin 13.7 g/dL (14.1-18.0); Lymphocytes # 0.9 K/mm3 (0.7-4.5); Lymphocytes % 10.9 % (10-50); Mean Corpuscular HGB Conc 33.5 g/dL (31.8-35.4); Mean Corpuscular Hemoglobin 29.4 pg (27.0-31.2); Mean Corpuscular Volume 87.7 fl (80-94); Mean Platelet Volume 8.3 fl (7.4-10.4); Monocytes # 0.7 K/mm3 (0.1-1.0); Monocytes % 8.1 % (1.7-9.3); Neutrophils # 6.7 K/mm3 (1.8-7.8); Neutrophils % 78.7 % (37.0-80.0); Platelet Count 204 K/mm3 (142-424); Red Blood Count 4.66 M/mm3 (4.60-6.20); Red Cell Distribution Width 13.6 % (11.5-17.5); White Blood Count 8.6 K/mm3 (4.8-10.8)
--- NOTE | 2020-04-28 07:00 | FL_ITS ---
PROCEDURE: FL SMALL BOWEL FOLLOW THROUGH CLINICAL INDICATION: POSSIBLE BOWEL OBSTRUCTION COMPARISON: No exams were available for comparison FINDINGS: Fluoroscopy time: 53 seconds. Recycling [employer]bish [employer]or view shows multiple abdominal wall tacks in the right lower quadrant. Nasogastric tube is present. Contrast is injected through the nasogastric tube. There is no evidence of small-bowel obstruction mass stricture or mucosal abnormality. Spot views of the terminal ileum/distal ileum are unremarkable. Small bowel obstruction has resolved. IMPRESSION: Negative small bowel series Dictated by: Hugh Bella MD 04/28/2020 14:16 Hugh Bella MD in [place] 04/28/2020 14:16
[2020-04-28 08:00] VITALS: BP 134/72; PULSE 64; RESP 19; TEMP 37.2; O2SAT 95
[2020-04-28 08:01] VITALS: BMI 27.1
--- NOTE | 2020-04-28 10:05 | PC.NURSE ---
PATIENT BACK UP TO FLOOR AT THIS TIME.
--- NOTE | 2020-04-28 12:00 | PC.NURSE ---
NG TUBE REMOVED AT THIS TIME. PT TOLERATED WELL. 450 ML OUTPUT DARK BROWN
--- NOTE | 2020-04-28 12:28 | P.PN_ITS ---
Subjective Patient reports: feels better Narrative: Denies abdominal pain. Passing very little flatus. Progress Note: A&P (1) Small bowel obstruction due to adhesions Status: Acute Current Visit: Yes Assessment and Plan for All Diagnoses:: Small bowel follow-through performed today. Reveals no evidence of any obstruction. We will go ahead and discontinue nasogastric tube and start clear liquid diet. Exam Vital signs and Labs for Last 24 Hours: Temp Pulse Resp BP Pulse Ox 98.9 F 64 19 134/72 95 04/28/20 08:00 04/28/20 08:00 04/28/20 08:00 04/28/20 08:00 04/28/20 08:00 Laboratory Results - last 24 hr 04/28/20 05:23: WBC 8.6, RBC 4.66, Hgb 13.7 L, Hct 40.9 L, MCV 87.7, MCH 29.4, MCHC 33.5, RDW 13.6, Plt Count 204, MPV 8.3, Neut % (Auto) 78.7, Lymph % (Auto) 10.9, [place] % (Auto) 8.1, Eos % (Auto) 1.8, Baso % (Auto) 0.4, Neut # (Auto) 6.7, Lymph # (Auto) 0.9, [place] # (Auto) 0.7, Eos # (Auto) 0.2, Baso # (Auto) 0.0 04/28/20 05:23: Sodium 137, Potassium 3.9, Chloride 105, Carbon Dioxide 23, Anion Gap 12.9, BUN 11 D, Creatinine 0.90 D, Estimated Creat Clear 96, Estimated GFR 85, Est GFR ( Amer) 103 D, Glucose 77, Calcium 8.4 D I & O for Last 24 hours: Intake & Output 04/26/20 04/27/20 04/28/20 04/29/20 11:59 11:59 11:59 11:59 Intake Total 0 / 0 3223 / 3223 2736 / 2736 Output Total 825 / 825 1525 / 1525 2350 / 2350 Balance -825 / -825 1698 / 1698 386 / 386 Weight 201 lb 7 oz 201 lb 6 oz 200 lb 9.93 oz - *Routine Abdominal Exam Present: soft
[2020-04-28 16:00] VITALS: BP 127/81; PULSE 66; RESP 18; TEMP 36.8; O2SAT 97
--- NOTE | 2020-04-28 19:15 | PC.NURSE ---
report given to mynor
[2020-04-28 20:00] VITALS: BP 130/79; PULSE 57; RESP 16; TEMP 37; O2SAT 95; O2SAT 97
--- NOTE | 2020-04-29 02:28 | PC.NURSE ---
Pt is A&Ox4 and has ambulated in room and in hallway this shift and tolerated well. Pt has denied and pain, N/V/D, or ABD tenderness. Pt passed 1 small BM and noted it to be soft and with contrast. Active BS x4 quads. Pt tolerating clear liquid diet very well and anxious to going home soon. Lungs CTA, room air sat 95-97% thus far. New IV placed, #18g RAC with NS infusing @ 150ml/hr. SKin C/D/I. No further edema to pt's face. Pt has rested in intervals. VSS, call light within reach.
[2020-04-29 04:00] VITALS: BP 131/72; PULSE 62; RESP 18; TEMP 37; O2SAT 95
[2020-04-29 05:00] VITALS: BMI 26.8
--- NOTE | 2020-04-29 05:01 | PC.NURSE ---
shift summary, no acute changes since prior nurses's note, pt has rested on and off t/o remainder of shift, has ambulated to bathroom once, has no complaints of N/V/D or pain
--- NOTE | 2020-04-29 06:51 | P.PN_ITS ---
Subjective Narrative: Small bowel follow through revealed no evidence of obstruction. NG removed yesterday. Patient states that he feels good . Tolerating clear liquids. Passing gas and a couple of liquid bowel movements. Progress Note: A&P (1) Small bowel obstruction due to adhesions Status: Acute Current Visit: Yes Assessment and Plan for All Diagnoses:: Advance diet. Exam Vital signs and Labs for Last 24 Hours: Temp Pulse Resp BP Pulse Ox 98.6 F 62 18 131/72 95 04/29/20 04:00 04/29/20 04:00 04/29/20 04:00 04/29/20 04:00 04/29/20 04:00 Laboratory Results - last 24 hr 04/28/20 05:23: WBC 8.6, RBC 4.66, Hgb 13.7 L, Hct 40.9 L, MCV 87.7, MCH 29.4, MCHC 33.5, RDW 13.6, Plt Count 204, MPV 8.3, Neut % (Auto) 78.7, Lymph % (Auto) 10.9, [place] % (Auto) 8.1, Eos % (Auto) 1.8, Baso % (Auto) 0.4, Neut # (Auto) 6.7, Lymph # (Auto) 0.9, [place] # (Auto) 0.7, Eos # (Auto) 0.2, Baso # (Auto) 0.0 I & O for Last 24 hours: Intake & Output 04/26/20 04/27/20 04/28/20 04/29/20 11:59 11:59 11:59 11:59 Intake Total 0 / 0 3223 / 3223 2736 / 2736 3111 / 3111 Output Total 825 / 825 1525 / 1525 2350 / 2350 1450 / 1450 Balance -825 / -825 1698 / 1698 386 / 386 1661 / 1661 Weight 201 lb 7 oz 201 lb 6 oz 200 lb 9.93 oz 198 lb 3.015 oz - *Routine Abdominal Exam Present: soft. Absent: tenderness
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
[2020-04-29 07:48] VITALS: BP 135/71; PULSE 64; RESP 19; TEMP 37; O2SAT 99
== END 2020-04-29 09:45 | disposition home or self-care (01) | DRG 390 ==
LOC: ER 15:44 → 2ND 17:28
PROVIDERS: Admitting Provider Family Medicine; Emergency Provider Emergency Medicine; PCP Internal Medicine; Visit Provider Internal Medicine Adolescent Medicine
DX: K56.51 Intestinal adhesions [bands], with partial obstruction (principal); I10 Essential (primary) hypertension
CPT/HCPCS: 36415; 71045; 74019; 74021; 74177; 74250; 80048; 80053; 81001; 82150; 83690; 84484; 85025; 86328; 93005; 96365; 96367; 96375; 99285; J2405; Q9967

== ENCOUNTER 2020-09-06 15:48 | Emergency (ER) | payer OTHER, SELFPAY ==
[2020-09-06 16:25] VITALS: BP 135/69; PULSE 63; RESP 19; TEMP 37.1; O2SAT 98; BMI 29.1
--- NOTE | 2020-09-06 16:37 | HMH.EDUTC ---
[facility] [place] Impression: Encounter for laboratory testing for COVID-19 virus Otitis media Qualifiers: Otitis media type: unspecified Laterality: left Qualified Code(s): H66.92 - Otitis media, unspecified, left ear Disposition: Home, Self-Care Condition on Discharge: Good Instructions: Middle Ear Infection, Amoxicillin, Benzonatate, DI for COVID-19 (Suspected or Confirmed ), Coronavirus Disease 2019, Preventing the Spread of Coronavirus Discharge Instructions Additional Instructions: *Monitor Temp, Over the counter Motrin or Tylenol as directed/as needed Tylenol every 4 hours and Motrin every 6 hours (as long as your family doctor has told you that you can take it) for fever or pain. and straight to ER if unable to lower temp less than 101.0 after medication given *Warm salt water gargles may help to soothe the throat *Throat Lozenges *Warm fluids like tea with honey may help to soothe the throat *Sleep elevated *Humidifier/Vaporizer Follow up IMMEDIATELY for new or worsening symptoms or no Noticeable improvement over the next 48-72 hours. 911 for difficulty breathing or swallowing You were tested for today for COVID19 your test result should be back in the next 24-48 hours, you may call to the [facility] to see if your test results are back in the next 48 hours [phone] [facility] hours are 9am-9pm You was given a handout with instructions for Self Quarantine and Self isolation for while you wait on test results and what to do if they are positive If you are positive the Health Dept will be contacting you also Prescriptions: Amoxicillin [Amoxicillin 500mg Tab] 500 mg PO TID 10 Days #30 tab Transmission Status: Pending to [facility] Benzonatate [Tessalon Perle 100mg Cap*] 100 mg PO TID PRN #30 cap PRN Reason: Cough Transmission Status: Pending to [facility] Referrals: El Werner [Primary Care Provider] - As needed Forms: Work/School Release Medical Decision Making - Chris Inquiry Pt receiving controlled substance: No Chris was queried for this patient: No Vital Signs: 09/06/20 16:25 Temperature 98.8 F Temperature Source Oral Pulse Rate [Right Brachial] 63 Respiratory Rate 19 Blood Pressure [Right Arm] 135/69 Blood Pressure Mean [Right Arm] 91 Blood Pressure Source [Right Arm] Automatic Cuff Blood Pressure Position [Right Arm] Sitting 02 Sat by Pulse Oximetry 98 Oxygen Delivery Method Room Air - Lab Data Lab results reviewed: Yes: I reviewed the patient's lab results. Orders (Tests/Meds): ORDERS Category Date Time Status Covid-19 Nasal PCR ([facility]) Routine Lab 09/06/20 15:51 Ordered [facility] [place] HPI - General Stated complaint: Covid Test, chills, fever, cough Time Seen by Provider: 09/06/20 16:38 Mode of Arrival: Ambulatory Source of Information: Patient Limitations: No Limitations Description of Symptoms (Recalled from Triage Doc. by RN): PATIENT REQUESTING COVID TEST. C/O CHILLS, BODY ACHES, COUGH, AND HEADACHE X 1 WEEK HEENT Symptoms (Recalled from RN notes): No Resp Symptoms (Recalled from RN notes): No Skin Symptoms (Recalled from RN notes): No MS Symptoms (Recalled from RN notes): No Functional Status (Recalled from RN notes): WNL - History of Present Illness Provider Complaint: Patient states that he has not felt well for about a week States that he has been having pain and pressure in his left ear, fever, chills body aches and headache State that family was concerned that he may have COVID and wanted him to get tested - Related Data Home Medications Medication Instructions Recorded Confirmed Amlodipine Besylate [Amlodipine 5 mg PO DAILY 04/25/20 04/25/20 5mg tab] Aspirin [Low Dose Aspirin EC] 81 mg PO DAILY 04/25/20 04/25/20 Tamsulosin HCl 0.4 mg PO HS 04/26/20 04/26/20 Previous Rx's Medication Instructions Recorded Amoxicillin [Amoxicillin 500mg Tab] 500 mg PO TID 10 Days #30 tab 09/06/20 Benzonatate [Tessalon Perle 100mg 100 mg PO TID P
[2020-09-06 16:49] VITALS: BP 135/69; PULSE 63; RESP 19; TEMP 37.1; O2SAT 98
[2020-09-06 20:30] LABS: UTC Influenza A Antigen Negative (Negative); UTC Influenza B Antigen Negative (Negative)
--- NOTE | 2020-09-06 20:34 | PC.NURSE ---
PT NOTIFIED OF POSITIVE COVID TEST
== END 2020-09-06 16:52 | disposition home or self-care (01) ==
PROVIDERS: Emergency Provider Nurse Practitioner; PCP Internal Medicine
DX: U07.1 COVID-19 (principal); H66.92 Otitis media, unspecified, left ear; I10 Essential (primary) hypertension; R00.2 Palpitations; Z79.899 Other long term (current) drug therapy
CPT/HCPCS: 87804; 99202; G0463; U0003

== ENCOUNTER → 2020-10-15 10:20 | Outpatient (CLI) | payer OTHER, SELFPAY ==
[2020-10-15 10:58] LABS: D-Dimer 0.74 ug/mL (0.0-0.5)
[2020-10-15 11:39] LABS: Basophils # 0.1 K/mm3 (0-0.2); Basophils % 0.9 % (0.1-2.0); Eosinophils # 0.2 K/mm3 (0.0-0.4); Eosinophils % 3.2 % (0.1-12.0); Hematocrit 46.1 % (42.0-52.0); Hemoglobin 14.4 g/dL (14.1-18.0); Lymphocytes # 1.6 K/mm3 (0.7-4.5); Lymphocytes % 25.5 % (10-50); Mean Corpuscular HGB Conc 31.2 g/dL (31.8-35.4); Mean Corpuscular Volume 89.9 fl (80-94); Monocytes # 0.4 K/mm3 (0.1-1.0); Monocytes % 6.9 % (1.7-9.3); Neutrophils % 63.5 % (37.0-80.0); Platelet Count 279 K/mm3 (142-424); Red Blood Count 5.13 M/mm3 (4.60-6.20); White Blood Count 6.3 K/mm3 (4.8-10.8)
[2020-10-15 12:28] LABS: Alanine Aminotransferase 29 U/L (12-78); Albumin Level 4.5 g/dl (3.5-5.0); Albumin/Globulin Ratio 1.5 (1.1-1.8); Alkaline Phosphatase 75 U/L (38-126); Anion Gap 12.2 mEq/L (5-15); Aspartate Amino Transferase 33 U/L (17-59); Bilirubin,Total 0.6 mg/dl (0.2-1.3); Blood Urea Nitrogen 23 mg/dl (9-20); Carbon Dioxide 27 mmol/L (22.0-30.0); Chloride 104 mmol/L (98-107); Estimated Glomerular Filt Rate 67 ml/min (>60); GFR (African American) 82 ML/MIN (>60); Globulin 3.1 g/dL (1.3-3.2); Glucose 92 mg/dl (74-100); Potassium 5.2 mmoL/L (3.5-5.1); Sodium 138 mmol/L (136-145); Total Protein,Serum 7.6 g/dl (6.3-8.2)
[2020-10-15 12:42] LABS: Coronavirus 19 IgG Antibody Positive (Negative)
[2020-10-15 12:43] LABS: Coronavirus 19 IgM Antibody Positive (Negative)
== END ==
PROVIDERS: Visit Provider Internal Medicine Adolescent Medicine
DX: R06.00 Dyspnea, unspecified (principal); U07.1 COVID-19
CPT/HCPCS: 36415; 80053; 85025; 85378; 86328

== ENCOUNTER → 2021-08-06 12:02 | Outpatient (CLI) | payer MEDICARE, SELFPAY ==
--- NOTE | 2021-08-06 12:09 | XR_ITS ---
PROCEDURE: XR SHOULDER LT MIN 2V CLINICAL INDICATION: PAIN COMPARISON: CR [id number] VIEWS from 06/09/2016 FINDINGS: There are mild osteoarthritic changes of the glenohumeral joint with high-riding humeral head and subacromial stenosis. No fracture or dislocation. No lytic or blastic change. Other findings:None. IMPRESSION: Osteoarthritis of the glenohumeral joint with high-riding humeral head and subacromial stenosis Dictated by: Hugh Bella MD 08/06/2021 12:24 Hugh Bella MD in [place] 08/06/2021 12:24
== END ==
PROVIDERS: PCP Internal Medicine Adolescent Medicine; Visit Provider Internal Medicine Adolescent Medicine
DX: M25.512 Pain in left shoulder (principal)
CPT/HCPCS: 73030

== ENCOUNTER → 2021-09-01 15:21 | Outpatient (CLI) | payer MEDICARE, SELFPAY ==
[2021-09-01 17:26] LABS: Blood Urea Nitrogen 29 mg/dl (9-20); Estimated Glomerular Filt Rate 67 ml/min (>60); GFR (African American) 81 ML/MIN (>60)
== END ==
PROVIDERS: Visit Provider Orthopaedic Surgery
DX: M25.512 Pain in left shoulder (principal); Z01.812 Encounter for preprocedural laboratory examination
CPT/HCPCS: 36415; 82565; 84520

== ENCOUNTER → 2021-09-02 08:47 | Outpatient (CLI) | payer MEDICARE, SELFPAY ==
--- NOTE | 2021-09-02 08:48 | IR_ITS ---
FINAL REPORT CLINICAL HISTORY: evaluate for rotator cuff/ labrum tear FINDINGS: Arthrogram Left shoulder injection for MRI arthrogram HISTORY: Left shoulder pain PROCEDURE: After informed consent was obtained, a time-out was performed. Utilizing local anesthesia and sterile technique, with direct fluoroscopic guidance, access to the joint was obtained . A small amount of contrast was injected to confirm needle tip location. Additional gadolinium contrast was injected. IMPRESSION: Status post injection for MRI arthrogram without immediate complication. Please see MRI report. FLUOROSCOPY TIME: 30 seconds Reviewed, Interpreted and Dictated by Adolfo Ramirez III, MD Transcribed by ROBBIE Martinez Authenticated by Adolfo Ramirez III, MD on 09/02/2021 11:53:[address] [facility]
--- NOTE | 2021-09-02 08:48 | MR_ITS ---
FINAL REPORT CLINICAL HISTORY: evaluate for left shoulder rotator cuff/ labrum tear, left shoulder pain x2-3 weeks, limited range of motion, previous surgery 7 years ago for torn labrum. FINDINGS: Multiplanar MR imaging of the left shoulder was performed after the intra-articular injection of dilute gadolinium solution. Motion artifact is identified on some of the images. There are complete tears of the distal supraspinatus and infraspinatus tendons. Tendons are retracted to the level of the glenoid. There is severe supraspinatus and infraspinatus muscle atrophy. There are postoperative changes in the posterior humeral head. There is no evidence of contrast leakage from the glenohumeral joint to the subacromial/subdeltoid bursa. The a.c. joint is intact. There is irregularity of the superior labrum worrisome for a SLAP tear. The long head of the biceps tendon is intact. There is no evidence of fracture. No soft tissue mass or cyst is identified. IMPRESSION: Complete tears of the distal supraspinatus and infraspinatus tendons with severe muscle atrophy. Findings worrisome for a SLAP tear. Reviewed, Interpreted and Dictated by Adolfo Ramirez III, MD Transcribed by Alyson Garcia Authenticated by Adolfo Ramirez III, MD on 09/02/2021 12:21:12 PM [facility]
--- NOTE | 2021-09-02 08:51 | XR_ITS ---
FINAL REPORT CLINICAL HISTORY: R/O METAL FINDINGS: ORBITS Two views of the orbits were obtained. No intraorbital foreign body is identified. There is moderate mucosal thickening in the left maxillary sinus. IMPRESSION: No intraorbital foreign body. Reviewed, Interpreted and Dictated by Adolfo Ramirez III, MD Transcribed by Alyson Garcia Authenticated by Adolfo Ramirez III, MD on 09/02/2021 10:22:18 AM [facility]
== END ==
PROVIDERS: PCP Internal Medicine Adolescent Medicine; Visit Provider Orthopaedic Surgery
DX: M25.512 Pain in left shoulder (principal); H05.53 Retained (old) foreign body following penetrating wound of bilateral orbits
CPT/HCPCS: 70200; 73040; 73222; Q9967

== ENCOUNTER → 2022-03-04 08:37 | Outpatient (CLI) | payer MEDICARE, SELFPAY ==
--- NOTE | 2022-03-04 | CA_ITS ---
APPROVED REPORT Exam: Exercise Treadmill Technologist: Kelley Christensen, Ht: 6 ft 0 in Wt: 220 lbs BSA: 2.22 m2 HR: 62 bpm BP: 131/77 mmHg Medical History Medications: Amlodipine,,,,, TAMSULOSIN,,,,, Stress Test Details Test: Farshad HR Resting HR: 62 bpm Max Heart Rate (APMHR): 154 bpm Max HR Achieved: 132 bpm Target HR (85% APMHR): 131 bpm % of APMHR: 86 Recovery HR: 83 bpm BP Resting BP: 139/78 mmHg Max BP: 190/85 mmHg Recovery BP: 141.0/83.0 mmHg ECG Resting ECG: NSR, leftward axis, slow R wave progression Clinical Exercise duration: 09:00 min Highest Stage Achieved: III Exercise capacity: 10.1 METs Stress ECG Conclusion Exercised 9:00 completing stage III of Farshad Protocol Max HR: 132 % of PM: 86% Max BP: 190/85 METs: 10.1 Test stopped due to: SOA, leg fatigue Symptoms: No CP. Arrhythmias/Ectopy: None. ST-T Changes: Normal ST response to exercise. Conclusion: Normal GXT. GXT only (no imaging) Test Summary RECOVERY 01:00 0.0 0.0 110 . . . Stop exercise at 09:00 REST . . . . . . . Standing REST 09:25 0.0 0.0 62 . 139/ 78 . . Stage 1 01:00 10.0 1.7 85 . . . . Stage 1 02:00 10.0 1.7 90 . . . . Stage 1 03:00 10.0 1.7 92 . 156/ 70 . . Stage 2 01:00 12.0 2.5 104 . . . . Stage 2 02:00 12.0 2.5 107 . . . . Stage 2 03:00 12.0 2.5 111 . 166/ 70 . . Stage 3 01:00 14.0 3.4 120 . . . . Stage 3 02:00 14.0 3.4 126 . . . . Stage 3 03:00 14.0 3.4 132 . 178/ 80 . Stop exercise at 09:00 RECOVERY 01:00 0.0 0.0 110 . . . . RECOVERY 02:00 0.0 0.0 94 . . . . RECOVERY 03:00 0.0 0.0 90 . 186/ 83 . . RECOVERY 04:00 0.0 0.0 83 . 190/ 85 . . RECOVERY 05:00 0.0 0.0 87 . 140/ 82 . . RECOVERY 06:00 0.0 0.0 82 . 140/ 82 . . RECOVERY 06:42 0.0 0.0 86 . 141/ 83 . . Electronically signed by : Danis Forman MD 03/05/2022 14:39:07
--- NOTE | 2022-03-04 | CA_ITS ---
APPROVED REPORT EXAM: Comprehensive 2D, Doppler, and color-flow Echocardiogram Dredge Mechanic: Anila Day, ANGELICA, RVS Ht: 6 ft 0 in Wt: 220lbs BSA: 2.22 BP: 155/87 mmHg Indications: CP, Palpitatiions, HTN 2D Dimensions LVOT 2.12 cm (M/F) 1.5-2.5 LA Volume 42.90 mL LA Volume Index [id number] mL/m2 (M/F) 16-34 M-Mode Dimensions RVDd 2.61 cm (0.9-2.6) LA Diam 4.08 cm (1.9-4.0) LVDd 5.63 cm (3.5-5.7) Ao Diam 4.04 cm (2.0-3.7) LVDs 3.46 cm (3.5-5.7) IVSd 0.80 cm (0.6-1.1) PWd 0.84 cm (0.6-1.1) EF (Teich) 68.20% EPSs 0.44 cm FS 38.50% EDV (Teich) 155.60 mL TAPSE 2.30 (<1.7) ESV (Teich) 49.50 mL LV Diastology E Decel Time 318.00 (160-240 msec) E/A Ratio 0.80 MED E' 5.30 (< 7 cm/sec) MED A' 10.60 cm/s E'/MED E' Ratio 15.02 (>14) LAT E' 8.80 (<10 cm/sec) LAT A' 13.80 cm/s E/LAT E' Ratio 9.05 (>14) Aortic Valve AO Peak GR. 5.90 mmHg Mitral Valve MV A Velocity 99.00 (40-130 cm/s) E/A Ratio 0.80 MV Decel. Time 318.00 (160-240 ms) MV PHT 85.00 ms Pulmonary Valve PV Peak Velocity 94.00 (50-150 cm/s) DC End VMAX 132.00 cm/s Tricuspid Valve TR P. Velocity 129.00 cm/s Left Ventricle Left atrium is mildly enlarged, left ventricle is normal size mild concentric left ventricular hypertrophy, estimated ejection fraction 55% with no regional wall motion abnormality. Grade 1 diastolic dysfunction seen without tissue Doppler evidence of raise left atrial pressure. Right Ventricle Right atrium and right ventricle are normal size and contractility. Aortic Valve Aortic valve is minimally thickened and fibrosed there is no aortic stenosis or aortic insufficiency. Mitral Valve Mitral valve is grossly normal, there is trace mitral regurgitation. Tricuspid Valve Tricuspid grossly normal, there is trace tricuspid regurgitation, tricuspid regurgitation jet velocity is inadequate for calculation of the right ventricular systolic pressure. Pulmonic Valve Pulmonic valve is poorly visualized. Great Vessels Aortic root is normal size. Inferior vena cava normal 7 normal inspiratory collapse. Pericardium No significant pericardial effusion noted. Conclusion 1. Mildly enlarged left atrium, normal left ventricular size, mild concentric left ventricular hypertrophy, estimated ejection fraction 55% with no regional wall motion abnormality, grade 1 diastolic dysfunction seen without tissue Doppler evidence of raise left atrial pressure. 2. Trace mitral and tricuspid regurgitation. 3. No significant pericardial effusion noted. 4. Inferior vena cava normal size with normal inspiratory collapse. Electronically signed by : Danis Forman MD 03/05/2022 16:08:02
== END ==
PROVIDERS: PCP Internal Medicine Adolescent Medicine; Visit Provider Internal Medicine Adolescent Medicine
DX: R06.09 Other forms of dyspnea (principal); R07.89 Other chest pain
CPT/HCPCS: 93017; 93306

== ENCOUNTER → 2022-06-28 09:23 | Outpatient (CLI) | payer MEDICARE, MEDICAID, SELFPAY ==
--- NOTE | 2022-06-28 09:29 | XR_ITS ---
FINAL REPORT CLINICAL HISTORY: LT HEEL PAIN X5 MONTHS FINDINGS: 3 views of the left foot were obtained. There is no acute fracture or dislocation. There is a small plantar spur. The joint spaces are intact. The soft tissues are unremarkable. IMPRESSION: Small plantar spur. Reviewed, Interpreted and Dictated by Noble Muniz MD Transcribed by Joseph Michael Authenticated and . [facility]
== END ==
PROVIDERS: PCP Internal Medicine Adolescent Medicine; Visit Provider Nurse Practitioner Family
DX: M79.672 Pain in left foot (principal)
CPT/HCPCS: 73630

== ENCOUNTER → 2022-06-30 14:08 | Outpatient (CLI) | payer MEDICARE, SELFPAY ==
--- NOTE | 2022-06-30 14:08 | MR_ITS ---
FINAL REPORT CLINICAL HISTORY: foot pain left foot pain x several months pain mostly in heel constent pain FINDINGS: Multiplanar MR imaging of the left foot was performed without contrast. The bony structures are intact without evidence of fracture, bone bruise or marrow edema. The Achilles tendon appears intact. There is some mild abnormal signal at the insertion of the plantar fascia. There is mild edema at the base of the calcaneus. The supporting tendons appear intact. The anterior talofibular ligament demonstrates some mild irregularity and is possibly related to a mild chronic tear. There is an os trigonum measuring approximately 8 mm with surrounding fluid. The musculature is intact. The plantar aponeurosis is intact. No soft tissue mass or cyst is identified. IMPRESSION: Abnormal signal at the insertion of the plantar fascia at the base of the calcaneus consistent with plantar fasciitis. 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 Irregularity of the anterior talofibular ligament possibly related to a chronic partial tear. Reviewed, Interpreted and Dictated by Noble Muniz MD Transcribed by Keily Zhou Authenticated and [facility]
== END ==
PROVIDERS: PCP Internal Medicine Adolescent Medicine; Visit Provider Nurse Practitioner Family
DX: M72.2 Plantar fascial fibromatosis (principal); M79.672 Pain in left foot
CPT/HCPCS: 73718

== ENCOUNTER 2022-07-10 12:16 | Emergency (ER) | payer MEDICARE, SELFPAY ==
[2022-07-10] VITALS (7 sets, daily range): BP systolic 122–152; BP diastolic 73–81; PULSE 75–89; RESP 16–19; TEMP 36.4; O2SAT 97–98; BMI 29.1
--- NOTE | 2022-07-10 15:05 | HMH.EDGENADL ---
Discharge Plan Disposition Patient Disposition: Home, Self-Care Condition: Good Prescriptions Prescriptions: New ondansetron 4 mg tablet,disintegrating 4 mg PO Q8H PRN (Reason: nausea and vomiting) Qty: 10 0RF No Action meloxicam 7.5 mg tablet 15 mg PO DAILY 30 Days Qty: 60 2RF hydrocodone-acetaminophen 5-300 mg tablet 1 tab PO Q6H PRN amlodipine 5 MG tablet 5 mg PO DAILY tamsulosin 0.4 MG capsule 0.4 mg PO HS Referrals Follow up/Referrals: Bandar Dela Cruz MD [Primary Care Provider] - See instructions Activity Restrictions/Add. Instructions Additional Instructions/Restrictions: You may begin taking Levaquin prescribed by your primary care provider. Phenergan take-home pack, then Zofran as needed for nausea and vomiting. Follow-up with primary care provider, call Tuesday to arrange follow-up. Additional instructions for ABDOMINAL PAIN: See your physician as soon as possible for further evaluation. Return immediately if worsening abdominal pain, vomiting, shortness of breath, fever, vomiting of blood or abdominal distention. Clinical Impressions Clinical Impression: Enterocolitis Discharge ED Provider: Skyler Crump General Adult HPI General Chief complaint: Abdominal Pain Stated complaint: stomach pain, vomiting Time Seen by Provider: 07/10/22 15:02 History of Present Illness HPI narrative: States he has been sick for a couple of days with constant diffuse abdominal pain that gets worse and crampy waves associated with vomiting and diarrhea. Denies fever. States the pain feels similar to when he had diverticulitis in the past for which she had to be hospitalized. He did not require surgery. He did not have vomiting and diarrhea with his previous diverticulitis. No recent hospitalizations, surgery, travel, antibiotics, exposures. He has had prior hernia surgery. Medical record indicates a previous history of small bowel obstruction due to adhesions. Related Data Home Medications Medication Instructions Recorded Confirmed amlodipine 5 mg tablet 5 mg PO DAILY High blood pressure 04/25/20 07/05/22 tamsulosin 0.4 mg capsule 0.4 mg PO HS URINARY 04/26/20 07/05/22 hydrocodone 5 mg-acetaminophen 300 1 tab PO Q6H PRN 06/28/22 07/05/22 mg tablet Previous Rx's Medication Instructions Recorded meloxicam 7.5 mg tablet 15 mg PO DAILY left foot pain 30 05/12/22 days #60 tabs ondansetron 4 mg disintegrating 4 mg PO Q8H PRN nausea and 07/10/22 tablet vomiting #10 tabs Allergies Allergy/AdvReac Type Severity Reaction Status Date / Time No Known Allergies Allergy Verified 07/05/22 11:27 PFSH [facility] Social History Smoking Status: Never smoker alcohol intake: current substance use type: denies use current occupational status: employed Travel in the last 8 weeks: None household members: spouse housing: house current occupational exposures/hazards: No caffeine: No ROS Obtained: Yes Systems reviewed as appropriate & no additional complaints except as documented Constitutional Constitutional: Denies fever(s), Denies headache(s) and Denies weakness ENT Ears, Nose, Mouth, and Throat: Denies headache(s), Denies nasal discharge and Denies sore throat Cardiovascular Cardiovascular: Denies chest pain Respiratory Respiratory: Denies shortness of breath and Denies cough Gastrointestinal Gastrointestingal: Reports abdominal pain, cramping, diarrhea, nausea and vomiting; Denies constipation Genitourinary Male Genitourinary: Denies difficulty urinating and Denies flank pain Musculoskeletal Musculoskeletal: Denies numbness Neurologic Neurologic: Denies headache(s), Denies numbness and Denies weakness Physical Exam General General appearance: alert and in no apparent distress Head Head exam: atraumatic and normocephalic Eye Eye exam: Present normal appearance and EOMI ENT ENT exam: Prese
--- NOTE | 2022-07-10 15:07 | CT_ITS ---
PROCEDURE INFORMATION: Exam: CT Abdomen And Pelvis With Contrast Exam date and time: 07/10/2022 4:00 PM Age: 66 years old Clinical indication: Abdominal pain; Generalized; Additional info: Abdo pain TECHNIQUE: Imaging protocol: Computed tomography of the abdomen and pelvis with contrast. Radiation optimization: All CT scans at this facility use at least one of these dose optimization techniques: automated exposure control; mA and/or kV adjustment per patient size (includes targeted exams where dose is matched to clinical indication); or iterative reconstruction. Contrast material: ISOVUE; Contrast volume: 75 ml; Contrast route: IV; COMPARISON: CT ABDOMEN PELVIS W CON 04/25/2020 4:22 PM FINDINGS: Lungs: Bibasilar subsegmental atelectasis noted Liver: No focal hepatic lesions. Gallbladder and bile ducts: Gallbladder is distended without radiopaque cholelithiasis. No biliary ductal dilation. Pancreas: No peripancreatic fluid stranding. No main pancreatic ductal dilation. Spleen: No splenomegaly. Adrenal glands: The adrenal glands are normal. Kidneys and ureters: Nephrograms are symmetric. No nephrolithiasis or hydroureteronephrosis on either side. No solid lesions. Variably-sized left renal cysts noted. Stomach and bowel: There is mild fluid distention of small bowel loops. Liquid feces noted in the ascending and transverse colon. No discrete transition point. Appendix: A normal appendix is identified. Intraperitoneal space: There is no evidence of free intraperitoneal or pelvic fluid. Vasculature: Aorta is nonaneurysmal. Lymph nodes: No evidence of retroperitoneal or mesenteric lymphadenopathy Urinary bladder: Urinary bladder is unremarkable. Reproductive: Prostatomegaly measuring 6 x 6 x 5.5 cm (AP x TRV x SI) Bones/joints: Multilevel degenerative changes of the included spine. Prominent Schmorl's noted superior endplate of L4 vertebra. Soft tissues: Status post right inguinal hernia repair IMPRESSION: Findings can be attributed to enterocolitis in the appropriate clinical context. COMMENTS: Consistent with the [employer]'s Incidental Findings Committee white paper (J Am Melchor Radiol 2018): Any incidental renal lesion less than 1 cm or classified as too small to characterize, or any incidental cystic renal lesion characterized as simple-appearing, is likely benign. No follow-up imaging is recommended for these lesions per consensus recommendations based on imaging criteria.
--- NOTE | 2022-07-10 15:12 | PC.NURSE ---
pt given warm blanket
--- NOTE | 2022-07-10 15:21 | PC.NURSE ---
pt in restroom at this time
[2022-07-10 15:25] LABS: Basophils # 0.1 K/mm3 (0-0.2); Basophils % 0.3 % (0.1-2.0); Eosinophils # 0.3 K/mm3 (0.0-0.4); Eosinophils % 1.3 % (0.1-12.0); Hematocrit 54.3 % (42.0-52.0); Hemoglobin 16.6 g/dL (14.1-18.0); Lymphocytes # 0.6 K/mm3 (0.7-4.5); Lymphocytes % 3.3 % (10-50); Mean Corpuscular HGB Conc 30.6 g/dL (31.8-35.4); Mean Corpuscular Hemoglobin 28.4 pg (27.0-31.2); Mean Corpuscular Volume 92.7 fl (80-94); Mean Platelet Volume 8.3 fl (7.4-10.4); Monocytes # 0.8 K/mm3 (0.1-1.0); Monocytes % 3.9 % (1.7-9.3); Neutrophils # 17.8 K/mm3 (1.8-7.8); Neutrophils % 91.1 % (37.0-80.0); Platelet Count 253 K/mm3 (142-424); Red Blood Count 5.86 M/mm3 (4.60-6.20); Red Cell Distribution Width 14.1 % (11.5-17.5); White Blood Count 19.6 K/mm3 (4.8-10.8)
[2022-07-10 15:29] LABS: Chloride 98 mmol/L (98-107); MANUAL DIFFERENTIAL MANUAL DIFFERENTIAL (MANUAL DIFF); Sodium 140 mmol/L (136-145)
[2022-07-10 15:30] LABS: Potassium 4.7 mmoL/L (3.5-5.1)
[2022-07-10 15:32] LABS: Alanine Aminotransferase 38 U/L (12-78); Alkaline Phosphatase 96 U/L (38-126); Anion Gap 17.7 mEq/L (5-15); Aspartate Amino Transferase 39 U/L (17-59); Bilirubin,Total 1.5 mg/dl (0.2-1.3); Blood Urea Nitrogen 29 mg/dl (9-20); Carbon Dioxide 29 mmol/L (22.0-30.0); Estimated Glomerular Filt Rate 55 ml/min (>60); GFR (African American) 67 ML/MIN (>60); Lipase 19 U/L (23-300)
[2022-07-10 15:33] LABS: Albumin Level 5.3 g/dl (3.5-5.0); Albumin/Globulin Ratio 1.5 (1.1-1.8); Globulin 3.6 g/dL (1.3-3.2); Glucose 128 mg/dl (74-100); Total Protein,Serum 8.9 g/dl (6.3-8.2)
[2022-07-10 15:48] LABS: Creatinine Clearance Estimated 77 mL/min (50-200)
[2022-07-10 16:54] LABS: Lymphocytes % 6 % (10-50); Monocytes % 11 % (2-9); Neutrophils % 83 % (42-76); Platelet Estimate Normal; RBC Morphology Normal; Total Cells Counted 100
--- NOTE | 2022-07-10 17:44 | PC.NURSE ---
pt ambulated to restroom at this time, pt states feeling better.
--- NOTE | 2022-07-10 18:13 | PC.NURSE ---
ER at discussing test results with pt
--- NOTE | 2022-07-10 18:24 | PC.NURSE ---
notified pt LEOLA ESQUEDA is working on d/c paperwork at this time
== END 2022-07-10 18:38 | disposition home or self-care (01) ==
LOC: UTC 12:36 → ER 12:45
PROVIDERS: Emergency Provider Emergency Medicine; PCP Internal Medicine Adolescent Medicine
DX: K52.9 Noninfective gastroenteritis and colitis, unspecified (principal); Z79.899 Other long term (current) drug therapy; Z87.19 Personal history of other diseases of the digestive system; I10 Essential (primary) hypertension; I45.10 Unspecified right bundle-branch block; Z82.49 Family history of ischemic heart disease and other diseases of the circulatory system
CPT/HCPCS: 74177; 80053; 83690; 85007; 85025; 96365; 96375; 99284; J2405; Q9967

== ENCOUNTER → 2023-03-16 15:49 | Outpatient (CLI) | payer MEDICARE, SELFPAY ==
--- NOTE | 2023-03-16 15:53 | MR_ITS ---
PROCEDURE INFORMATION: Exam: MR Head Without Contrast Exam date and time: 03/16/2023 4:22 PM Age: 67 years old Clinical indication: Visual disturbance; Additional info: Visual field constriction of righ eye TECHNIQUE: Imaging protocol: Magnetic resonance imaging of the head without contrast. COMPARISON: CR XR ORBIT BILATERAL MIN 4V 09/02/2021 9:03 AM FINDINGS: Brain: There is no evidence of acute parenchymal hemorrhage, extra-axial collection, or acute infarction. There is no mass effect, midline shift, or downward herniation. Cerebral ventricles: Normal. No ventriculomegaly. Bones/joints: Unremarkable. Paranasal sinuses: There is [id number] paranasal sinus disease. Mastoid air cells: Normal as visualized. No mastoid effusion. Orbital cavities: Unremarkable. Soft tissues: Unremarkable. IMPRESSION: No evidence of acute intracranial process.
== END ==
PROVIDERS: PCP Internal Medicine Adolescent Medicine; Visit Provider Internal Medicine Adolescent Medicine
DX: G47.30 Sleep apnea, unspecified (principal); R40.0 Somnolence; J35.1 Hypertrophy of tonsils; R06.83 Snoring; R53.81 Other malaise; E66.9 Obesity, unspecified; H53.481 Generalized contraction of visual field, right eye; Z68.30 Body mass index [BMI] 30.0-30.9, adult
CPT/HCPCS: 70551; G0399

== ENCOUNTER → 2023-04-26 08:34 | Outpatient (CLI) | payer MEDICARE, SELFPAY ==
--- NOTE | 2023-04-26 08:41 | XR_ITS ---
FINAL REPORT CLINICAL HISTORY: ACUTE PAIN, injury 6 weeks ago, lateral pain FINDINGS: LEFT ANKLE Three views were obtained. There is no fracture or dislocation. There is a plantar calcaneal spur. Mild degenerative changes are present. No soft tissue abnormality is identified. IMPRESSION: No acute process. Reviewed, Interpreted and Dictated by Adolfo Ramirez III, MD Transcribed by Alyson Garcia Authenticated and [facility]
--- NOTE | 2023-04-26 08:41 | XR_ITS ---
FINAL REPORT CLINICAL HISTORY: ACUTE PAIN, injury 6 weeks ago, swelling and pain FINDINGS: LEFT KNEE Three views were obtained. There is no fracture or dislocation. There are mild degenerative changes. Small joint effusion is identified. IMPRESSION: Small joint effusion. Reviewed, Interpreted and Dictated by Adolfo Ramirez III, MD Transcribed by Alyson Garcia Authenticated and [facility]
== END ==
PROVIDERS: PCP Internal Medicine Adolescent Medicine; Visit Provider Nurse Practitioner Family
DX: M25.562 Pain in left knee (principal); M25.572 Pain in left ankle and joints of left foot; G89.11 Acute pain due to trauma
CPT/HCPCS: 73562; 73610

== ENCOUNTER → 2023-05-12 08:06 | Outpatient (CLI) | payer MEDICARE, SELFPAY ==
--- NOTE | 2023-05-12 08:11 | MR_ITS ---
FINAL REPORT CLINICAL HISTORY: LEFT LATERAL ANKLE, ACUTE KNEE PAIN, lateral sided ankle and heel pain. twisted ankle 2 months ago and pain since. FINDINGS: Multiplanar and multisequence imaging of the ankle was obtained without intravenous contrast. BONES/JOINT: Bone marrow signal intensity is normal. There is no edema, contusion or pathologic marrow replacement. LIGAMENTS: The anterior talofibular ligament, posterior talofibular ligament and calcaneofibular ligament are intact. The tibiofibular ligaments are intact. The deltoid and spring ligaments are within normal limits. TENDONS: The Achilles tendon is normal in size and signal intensity. The medial tendons are within normal limits. The peroneus longus and brevis tendons are within normal limits. There is a peroneus brevis split tear. The extensor tendons are within normal limits. OTHER SOFT TISSUES: There is plantar fasciitis with a partial tear of the medial plantar fascia at its attachment. IMPRESSION: Peroneus brevis split type tear. Plantar fasciitis with a partial tear. Reviewed, Interpreted and Dictated by Anitha Covington MD Transcribed by Alyson Garcia Authenticated and . [facility]
== END ==
PROVIDERS: PCP Internal Medicine Adolescent Medicine; Visit Provider Nurse Practitioner Family
DX: M25.572 Pain in left ankle and joints of left foot (principal); M25.562 Pain in left knee; G89.11 Acute pain due to trauma
CPT/HCPCS: 73721

== ENCOUNTER 2023-06-20 11:30 | Outpatient (RCR) | payer MEDICARE, SELFPAY | END 2023-06-20 13:00 | disposition home or self-care (01) | LOC: PT 11:30 | PROVIDERS: Visit Provider Podiatrist | DX: M25.572 Pain in left ankle and joints of left foot (principal); S86.312A Strain of muscle(s) and tendon(s) of peroneal muscle group at lower leg level, left leg, initial encounter | CPT/HCPCS: 97760 ==

== ENCOUNTER → 2023-08-02 14:17 | Outpatient (CLI) | payer MEDICARE, SELFPAY ==
--- NOTE | 2023-08-02 14:20 | XR_ITS ---
FINAL REPORT CLINICAL HISTORY: left knee pain x2 weeks FINDINGS: Left knee Three views were obtained. There is no acute fracture or dislocation. There is mild narrowing of the medial compartment joint space. No soft tissue abnormality is identified. IMPRESSION: No acute process. Reviewed, Interpreted and Dictated by Noble Muniz MD Transcribed by Alyson Garcia Authenticated and . [facility]
== END ==
LOC: RAD 14:18
PROVIDERS: PCP Internal Medicine Adolescent Medicine; Visit Provider Orthopaedic Surgery
DX: M25.562 Pain in left knee (principal)
CPT/HCPCS: 73562

== ENCOUNTER 2023-09-08 10:38 | Outpatient (CLI) | payer MEDICARE, SELFPAY ==
--- NOTE | 2023-09-08 10:43 | XR_ITS ---
FINAL REPORT CLINICAL HISTORY: LT HIGH ANKLE SPRAIN FINDINGS: Left foot Three views were obtained. There is no acute fracture or dislocation. The joint spaces appear normal. No soft tissue abnormality is identified. There is a small to moderate plantar spur.. IMPRESSION: No acute process. Reviewed, Interpreted and Dictated by Noble Muniz MD Transcribed by Alyson Garcia Authenticated and [facility]
--- NOTE | 2023-09-08 10:43 | XR_ITS ---
FINAL REPORT CLINICAL HISTORY: LT HIGH ANKLE SPRAIN FINDINGS: Left tibia fibula Two views were obtained. There is no acute fracture or dislocation. The joint spaces appear normal. No soft tissue abnormality is identified. IMPRESSION: No acute process. Reviewed, Interpreted and Dictated by Noble Muniz MD Transcribed by Alyson Garcia Authenticated and [facility] [place] [place]
--- NOTE | 2023-09-08 10:43 | XR_ITS ---
FINAL REPORT CLINICAL HISTORY: LT HIGH ANKLE SPRAIN FINDINGS: Left ankle Three views were obtained. There is no acute fracture or dislocation. The joint spaces appear normal. No soft tissue abnormality is identified. There is a small to moderate plantar spur.. IMPRESSION: No acute process. Reviewed, Interpreted and Dictated by Noble Muniz MD Transcribed by Alyson Garcia Authenticated and [facility]
== END 2023-09-08 23:59 ==
LOC: RAD 10:39
PROVIDERS: PCP Internal Medicine Adolescent Medicine; Visit Provider Internal Medicine Adolescent Medicine
DX: M25.572 Pain in left ankle and joints of left foot (principal); S93.492A Sprain of other ligament of left ankle, initial encounter; M79.672 Pain in left foot
CPT/HCPCS: 73590; 73610; 73630

== ENCOUNTER 2023-09-21 17:00 | Outpatient (RCR) | payer MEDICARE, SELFPAY ==
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
--- NOTE | 2023-09-15 18:00 | HMH.RHREAS ---
Rehab Reassessment Rehab OP Re-assessment Start: 08/17/23 16:53 Freq: Status: Active Protocol: Document 09/15/23 17:49 MICHELLE (Rec: 09/15/23 18:00 MICHELLE [id number]) E-signed By Fritz Phillips, PT Lower Extremity Functional Index Activities Today, do you or would you have any difficulty at all with: a.Any of your usual work, housework or Quite a bit of difficulty school activities b. Your usual hobbies, recreational or Quite a bit of difficulty sporting activities c. Getting into or out of the bath Quite a bit of difficulty d. Walking between rooms Quite a bit of difficulty e. Putting on your shoes or socks Quite a bit of difficulty f. Squatting Quite a bit of difficulty g. Lifting an object, like a bag of Moderate difficulty groceries from the floor h. Performing light activities around Quite a bit of difficulty your home i. Performing heavy activities around Quite a bit of difficulty your home j. Getting into or out of a car Moderate difficulty k. Walking 2 blocks Extreme difficulty or unable to perform activity l. Walking a mile Extreme difficulty or unable to perform activity m. Going up or down 10 stairs (about 1 Quite a bit of difficulty flight of stairs) n. Standing for 1 hour Extreme difficulty or unable to perform activity o. Sitting for 1 hour Moderate difficulty p. Running on even ground Quite a bit of difficulty q. Running on uneven ground Quite a bit of difficulty r. Making sharp turns while running fast Quite a bit of difficulty s. Hopping Quite a bit of difficulty t. Rolling over in bed No difficulty LEFI Score Lower Extremity Functional Index Score 23 Rehab Re-assessment Subjective Subjective Patient reports 40% improvement since start of care. Objective Objective Notes AROM: DF 11; PF WNL; INV 16; EV 11 MMT: WNL Pain: 5/10 currently; 8/10 at worst Neuro: WNL Assessment Progress Assessment Progressing as Expected Assessment Notes Patient has been seen for 2 treatment visits to date. He is currently experiencing symptoms exacerbation after an accident while sledding last week. Significant improvements noted with addition of arch support inserts. Patient would benefit from continuing with skilled PT in order to address functional limitations with all standing/ambulatory activities. Patient goals met STG 2 Goals Not Met All others Revised Goals NA Plan Plan Continue with current POC. Frequency of Therapy 2x/week Duration of therapy 4 weeks Time and Billing Re-Eval Time 16 Re-Eval Billing Units 1 PHYSICIAN CERTIFICATION: I certify the specified therapy services for Rayshwan Palomino are required, authorized, and reviewed every 30 days.
== END 2023-09-21 18:00 | disposition home or self-care (01) ==
LOC: PT 17:00
PROVIDERS: PCP Internal Medicine Adolescent Medicine; Visit Provider Podiatrist
DX: M79.672 Pain in left foot; M25.572 Pain in left ankle and joints of left foot; S86.812A Strain of other muscle(s) and tendon(s) at lower leg level, left leg, initial encounter; M62.9 Disorder of muscle, unspecified
CPT/HCPCS: 97033; 97035; 97110; 97163; 97164; 97535; 97760

== ENCOUNTER → 2023-09-26 14:10 | Outpatient (POV) | payer MEDICARE, SELFPAY ==
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
[2023-09-26 14:40] VITALS: BP 150/86; PULSE 65; RESP 18; O2SAT 98; BMI 29.2
== END ==
PROVIDERS: PCP Internal Medicine Adolescent Medicine; Visit Provider Nurse Practitioner Family
DX: M25.572 Pain in left ankle and joints of left foot (principal); G89.29 Other chronic pain; M72.2 Plantar fascial fibromatosis
CPT/HCPCS: 99202; G0463

== ENCOUNTER 2023-10-17 16:57 | Outpatient (CLI) | payer MEDICARE, SELFPAY ==
--- NOTE | 2023-10-17 17:00 | MR_ITS ---
FINAL REPORT CLINICAL HISTORY: LATEAL SIDED LEFT ANKLE PAIN COMPARISON: 05/12/2023 FINDINGS: Multiplanar MR imaging of the left ankle was performed without contrast. There is no evidence of fracture. Mild degenerative changes are present. There is a plantar calcaneal spur. There is mild edema in the inferior calcaneal tuberosity. There is some irregularity of the anterior talofibular ligament, may represent chronic partial tear. Note is made of a longitudinal tear of the peroneus brevis at the lateral malleolus. There is posterior plantar fasciitis with a moderate partial tear at its insertion. No osteochondral lesion is identified. No significant joint effusion is seen. The musculature is intact. There is no evidence of soft tissue mass or cyst. IMPRESSION: Irregularity of the anterior talofibular ligament, may represent chronic partial tear. Tear of the peroneus brevis at the lateral malleolus. Posterior plantar fasciitis with moderate partial tear. Reviewed, Interpreted and Dictated by Adolfo Ramirez III, MD Transcribed by Alyson Garcia Authenticated and [facility]
== END 2023-10-17 23:59 ==
LOC: RAD 16:58
PROVIDERS: PCP Internal Medicine Adolescent Medicine; Visit Provider Nurse Practitioner Family
DX: M25.572 Pain in left ankle and joints of left foot (principal)
CPT/HCPCS: 73721

== ENCOUNTER 2023-11-02 16:06 | Emergency (ER) | payer MEDICARE, SELFPAY ==
--- NOTE | 2023-11-02 16:14 | ED_ITS ---
<Statement entered by Justina Perez DO - 11/02/23 19:54> I was consulted by the TIFFANI, and we discussed the complexity of the problems being addressed. I approved the treatment and management plan for this patient's care in the emergency department, thus performing a substantive portion of the medical decision making. Justina Perez DO Discharge Plan Disposition Patient Disposition: Home, Self-Care Condition: Good Prescriptions Prescriptions: No Action meloxicam 7.5 mg tablet 15 mg PO DAILY 30 Days Qty: 60 2RF Clenpiq 10 mg-3.5 gram- 12 gram/160 mL solution 160 ml PO DAILY Qty: 350 0RF Rx Instructions: take first dose at 5-9PM evening before colonoscopy; 2nd dose the next day approximately 5 hrs before colonoscopy ondansetron 4 mg tablet,disintegrating 4 mg PO Q8H PRN (Reason: nausea and vomiting) Qty: 10 0RF hydrocodone-acetaminophen 5-325 mg tablet 1 tab PO BID Qty: 28 0RF hydrocodone-acetaminophen 5-325 mg tablet 1 tab PO BID Qty: 28 0RF amlodipine 5 MG tablet 5 mg PO DAILY tamsulosin 0.4 MG capsule 0.4 mg PO HS Referrals Follow up/Referrals: Bandar Dela Cruz MD [Primary Care Provider] - See instructions Activity Restrictions/Add. Instructions Additional Instructions/Restrictions: Please call and follow-up with Dr. Salinas in the office tomorrow morning. Return to the emergency department as needed for any worsening or change in your symptoms. Clinical Impressions Clinical Impression: Chest pain Qualifiers: Chest pain type: unspecified Qualified Code(s): R07.9 - Chest pain, unspecified Discharge ED Provider: Justina Perez HPI <ROBBIE Oakley - Last Filed: 11/02/23 19:49> General Chief Complaint: Chest Pain Stated Complaint: abnormal EKG Time Seen by Provider: 11/02/23 16:10 History of Present Illness HPI narrative: Patient presents from his PCPs office for evaluation of chest pain. Patient actually states that his chest pain began yesterday and persisted for about 15 to 20 minutes and then abated without any intervention. It did not happen under exertion but at rest. He did have shortness of breath associated with it briefly. After the pain in his chest abated he noticed that he was having pain in the left thoracic area nearly opposite of where he was experiencing the discomfort in his anterior chest. That has persisted throughout the day today without any change in escalation. He currently rates it a 2 out of 10 in discomfort. He describes it as pressure. He saw his PCP today who sent him to the emergency department for evaluation. Currently patient denies shortness of breath fever chills hemoptysis hematochezia melena nausea vomit diarrhea. Related Data Home Medications Medication Instructions Recorded Confirmed amlodipine 5 mg tablet 5 mg PO DAILY High blood pressure 04/25/20 09/26/23 tamsulosin 0.4 mg capsule 0.4 mg PO HS URINARY 04/26/20 09/26/23 Previous Rx's Medication Instructions Recorded meloxicam 7.5 mg tablet 15 mg (2 x 7.5 mg) PO DAILY left 05/12/22 foot pain 30 days #60 tabs ondansetron 4 mg disintegrating 4 mg PO Q8H PRN nausea and 07/10/22 tablet vomiting #10 tabs sod picosulf 10 mg-magnes 3.5 160 ml PO DAILY 2 doses #350 mL 07/11/23 gram-citric 12 gram/160 mL oral solution (Clenpiq) hydrocodone 5 mg-acetaminophen 325 1 tab PO BID #28 tabs 10/04/23 mg tablet hydrocodone 5 mg-acetaminophen 325 1 tab PO BID #28 tabs 10/24/23 mg tablet Allergies Allergy/AdvReac Type Severity Reaction Status Date / Time No Known Allergies Allergy Verified 07/12/23 09:01 [facility] <ROBBIE Oakley - Last Filed: 11/02/23 19:49> [facility] Disclaimer: The information contained in this section may have been updated after the patient was seen, as this information can be updated by other users. Medical History (Updated 11/02/23 @ 18:47 by ROBBIE Oakley) Arrhythmia HTN (hypertension) Surgical History (Updated 09/26/23 @ 14:43 by Lori Lau RN) H/O shoulder surgery H/O left knee surgery Family History (Updated 09/26/23 @ 14:43 by Lori Lau RN) Other Unknown family medical history Social History (Updated 09/26/23 @ 14:46 by Lori Lau RN) Smoking Status: Never smoker alcohol intake: current substance use type: denies use current occupational status: employed Travel in the last 8 weeks: None household members: spouse housing: house current occupational exposures/hazards: No caffeine: No <ROBBIE Oakley - Last Filed: 11/02/23 19:49> ROS Obtained: Yes Systems reviewed as appropriate & no additional complaints except as documented Physical Exam <ROBBIE Oakley - Last Filed: 11/02/23 19:49> General General appearance: alert and in no apparent distress Head Head exam: atraumatic and normal inspection Eye Eye exam: Present normal appearance and EOMI ENT ENT exam: Present normal exam, normal oropharynx and mucous membranes moist Neck Neck exam: Present normal inspection and full ROM Chest Chest inspection: Present normal inspection and symmetric chest wall rise; Absent tenderness Respiratory Respiratory exam: Present normal lung sounds bilaterally; Absent respiratory distress, wheezes, stridor or accessory muscle use Cardiovascular Cardiovascular exam: Present regular rate, normal rhythm, normal heart sounds, +S1 and +S2 Abdominal Exam Abdominal exam: Present soft and normal bowel sounds; Absent tenderness Extremities Exam Extremities exam: Present normal inspection and full ROM; Absent tenderness Back Exam Back exam: Present normal inspection and full ROM; Absent tenderness, CVA tenderness (R) or CVA tenderness (L) Neurological Exam Neurological exam: Present alert, oriented X3 and CN II-XII intact Psychiatric Psychiatric exam: Present normal affect and normal mood Skin Skin exam: Present warm, dry and normal color HEART Score <ROBBIE Oakley - Last Filed: 11/02/23 19:49> HEART Score HEART Score assessment performed?: Yes History (anamnesis): Slightly suspicious ECG: Non-specific disturbance Age: >65 years Risk factors: 1-2 risk factors Troponin: </= normal limit HEART Score: 4 <Justina Perez DO - Last Filed: 11/02/23 19:55> HEART Score HEART Score: 4 Critical Care <ROBBIE Oakley - Last Filed: 11/02/23 19:49> Critical Care Time Critical Care Time: No Medical Decision Making <ORBBIE Oakley - Last Filed: 11/02/23 19:49> Medical Records Medical records reviewed: Yes I reviewed the patient's medical records. Chris Inquiry Pt receiving controlled substance: No Vital Signs Vital Signs: 11/02/23 16:30 11/02/23 16:34 11/02/23 17:06 Temperature 98.5 F Temperature Source Oral Pulse Rate 55 L 52 L Pulse Rate [Left] 59 L Respiratory Rate 16 14 Blood Pressure 176/84 H 166/81 H Blood Pressure [Right Arm] 175/85 H Blood Pressure Mean [Right Arm] 115 Blood Pressure Source [Right Arm] Automatic Cuff Blood Pressure Position [Right Arm] Sitting 02 Sat by Pulse Oximetry 97 99 97 Oxygen Delivery Method Room Air 11/02/23 18:07 11/02/23 18:55 Temperature 98.5 F Temperature Source Pulse Rate 55 L Pulse Rate [Left] Respiratory Rate 13 15 Blood Pressure 162/86 H 162/86 H Blood Pressure [Right Arm] Blood Pressure Mean [Right Arm] Blood Pressure Source [Right Arm] Blood Pressure Position [Right Arm] 02 Sat by Pulse Oximetry Oxygen Delivery Method Room Air Lab Data Lab results reviewed: Yes I reviewed the patient's lab results. Labs: Lab Results 11/02/23 16:14: WBC 7.7, RBC 4.69, Hgb 14.0 L, Hct 43.1, MCV 92.0, MCH 29.9, MCHC 32.5, RDW 14.5, Plt Count 220, MPV 8.6, Neut % (Auto) 71.5, Lymph % (Auto) 18.7, [place] % (Auto) 5.2, Eos % (Auto) 3.5, Baso % (Auto) 1.0, Neut # (Auto) 5.5, Lymph # (Auto) 1.4, [place] # (Auto) 0.4, Eos # (Auto) 0.3, Baso # (Auto) 0.1, PT 10.9, INR 1.01, D-Dimer 0.29, Sodium 137, Potassium 4.0, Chloride 105, Carbon Dioxide 28, Anion Gap 8.0, BUN 21 H, Creatinine 1.10, Estimated Creat Clear 88, Estimated GFR 67, Est GFR ( Amer) 81, Glucose 88, Calcium 9.3, Magnesium 2.2, Total Bilirubin 0.6, AST 29, ALT 27, Alkaline Phosphatase 66, Troponin I < 0.01, Total Protein 6.8, Albumin 4.3, Globulin 2.5, Albumin/Globulin Ratio 1.7 11/02/23 16:34: SARS-CoV-2 (PCR) Not detected, Influenza A Untype (PCR) Not detected, Influenza Type B (PCR) Not detected 11/02/23 18:01: Troponin I < 0.01 11/02/23 18:08: Urine Color Yellow, Urine Appearance Clear, Urine pH 6.5, Ur Specific Deal 1.010, Urine Protein Negative, Urine Glucose (UA) Negative, Urine Ketones Negative, Urine Blood Negative, Urine Nitrate Negative, Urine Bilirubin Negative, Urine Urobilinogen 0.2, Ur Leukocyte Esterase Negative, Urine RBC None, Urine WBC None, Ur Squamous Epith Cells Occasional, Urine Bacteria None 11/02/23 16:14 11/02/23 16:14 Response Orders (Tests/Meds): ED MEDICATIONS Discontinued Medications Generic Name Dose Route Start Last Admin Trade Name Freq PRN Reason Stop Dose Admin Acetaminophen 1,000 mg 11/02/23 16:28 11/02/23 17:02 Acetaminophen 1,000mg/100ml Vial IV 11/02/23 16:29 1,000 mg ONCE ONE Administration Ketorolac Tromethamine 15 mg 11/02/23 16:28 11/02/23 17:03 Ketorolac 30mg/Ml Vial IV 11/02/23 16:29 15 mg ONCE ONE Administration ORDERS Category Date Time Status Chest XR -- portable [XR chest portable] Stat Exams 11/02/23 16:28 Completed CBC w/Auto Diff [Complete Blood Count Auto Diff] Stat Lab 11/02/23 16:14 Completed CMP [Comprehensive Metabolic Panel] Stat Lab 11/02/23 16:14 Completed D-Dimer Stat Lab 11/02/23 16:14 Completed INR [Prothrombin Time INR] Stat Lab 11/02/23 16:14 Completed Magnesium Stat Lab 11/02/23 16:14 Completed Rapid PCR Covid and Flu A/B Stat Lab 11/02/23 16:34 Completed Trop I [Troponin I] Stat Lab 11/02/23 16:14 Completed Troponin I Q3H Lab 11/02/23 18:01 Completed UA [Urinalysis and Microscopic] Stat Lab 11/02/23 18:08 Completed MDM Narrative Medical Decision Narrative: In summary patient is a 67-year-old male who presents to the emergency department for evaluation of chest pain. Patient is initially slightly hypertensive with a blood pressure of 176/84 but with a heart rate of 55 respiratory rate is 16 satting at 97% on room air upon arrival, and afebrile. Physical exam is unremarkable for any reproducible or eliciting reproduction of his discomfort both in the anterior chest and in the left thoracic paraspinous muscle. Patient has negative CVA tenderness to percussion. Patient has full range of motion of his dorsal spine.. Differential diagnosis includes ACS versus PE versus gastrointestinal cause versus musculoskeletal spasm Cetera. Initial workup will be conducted with twelve-lead EKG hematologic laboratory investigations as well as a plain film chest x-ray.. Initial interventions include Toradol Tylenol. Initial workup reviewed by me shows that his hematologic labs are nonactionable including a undetectable troponin. My informal interpretation of his plain film chest x-ray shows no acute processes with radiologist read pending. His second troponin was also undetectable.. Upon repeat evaluation shows that he has had significant improvement of his left back pain to the point where it is almost completely gone.. Given this patient is referred back to his PCP at his PCPs request for further risk stratification in the a.m. Patient return the emergency department for any worsening or change in his symptoms. Patient verbalized understanding and agreement. <Justina Perez, DO - Last Filed: 11/02/23 19:55> Vital Signs Vital Signs: 11/02/23 16:30 11/02/23 16:34 11/02/23 17:06 Temperature 98.5 F Temperature Source Oral Pulse Rate 55 L 52 L Pulse Rate [Left] 59 L Respiratory Rate 16 14 Blood Pressure 176/84 H 166/81 H Blood Pressure [Right Arm] 175/85 H Blood Pressure Mean [Right Arm] 115 Blood Pressure Source [Right Arm] Automatic Cuff Blood Pressure Position [Right Arm] Sitting 02 Sat by Pulse Oximetry 97 99 97 Oxygen Delivery Method Room Air 11/02/23 18:07 11/02/23 18:55 Temperature 98.5 F Temperature Source Pulse Rate 55 L Pulse Rate [Left] Respiratory Rate 13 15 Blood Pressure 162/86 H 162/86 H Blood Pressure [Right Arm] Blood Pressure Mean [Right Arm] Blood Pressure Source [Right Arm] Blood Pressure Position [Right Arm] 02 Sat by Pulse Oximetry Oxygen Delivery Method Room Air Lab Data Labs: Lab Results 11/02/23 16:14: WBC 7.7, RBC 4.69, Hgb 14.0 L, Hct 43.1, MCV 92.0, MCH 29.9, MCHC 32.5, RDW 14.5, Plt Count 220, MPV 8.6, Neut % (Auto) 71.5, Lymph % (Auto) 18.7, [place] % (Auto) 5.2, Eos % (Auto) 3.5, Baso % (Auto) 1.0, Neut # (Auto) 5.5, Lymph # (Auto) 1.4, [place] # (Auto) 0.4, Eos # (Auto) 0.3, Baso # (Auto) 0.1, PT 10.9, INR 1.01, D-Dimer 0.29, Sodium 137, Potassium 4.0, Chloride 105, Carbon Dioxide 28, Anion Gap 8.0, BUN 21 H, Creatinine 1.10, Estimated Creat Clear 88, Estimated GFR 67, Est GFR ( Amer) 81, Glucose 88, Calcium 9.3, Magnesium 2.2, Total Bilirubin 0.6, AST 29, ALT 27, Alkaline Phosphatase 66, Troponin I < 0.01, Total Protein 6.8, Albumin 4.3, Globulin 2.5, Albumin/Globulin Ratio 1.7 11/02/23 16:34: SARS-CoV-2 (PCR) Not detected, Influenza A Untype (PCR) Not detected, Influenza Type B (PCR) Not detected 11/02/23 18:01: Troponin I < 0.01 11/02/23 18:08: Urine Color Yellow, Urine Appearance Clear, Urine pH 6.5, Ur Specific Deal 1.010, Urine Protein Negative, Urine Glucose (UA) Negative, Urine Ketones Negative, Urine Blood Negative, Urine Nitrate Negative, Urine Bilirubin Negative, Urine Urobilinogen 0.2, Ur Leukocyte Esterase Negative, Urine RBC None, Urine WBC None, Ur Squamous Epith Cells Occasional, Urine Bacteria None Response Orders (Tests/Meds): ED MEDICATIONS Discontinued Medications Generic Name Dose Route Start Last Admin Trade Name Freq PRN Reason Stop Dose Admin Acetaminophen 1,000 mg 11/02/23 16:28 11/02/23 17:02 Acetaminophen 1,000mg/100ml Vial IV 11/02/23 16:29 1,000 mg ONCE ONE Administration Ketorolac Tromethamine 15 mg 11/02/23 16:28 11/02/23 17:03 Ketorolac 30mg/Ml Vial IV 11/02/23 16:29 15 mg ONCE ONE Administration ORDERS Category Date Time Status Chest XR -- portable [XR chest portable] Stat Exams 11/02/23 16:28 Completed CBC w/Auto Diff [Complete Blood Count Auto Diff] Stat Lab 11/02/23 16:14 Completed CMP [Comprehensive Metabolic Panel] Stat Lab 11/02/23 16:14 Completed D-Dimer Stat Lab 11/02/23 16:14 Completed INR [Prothrombin Time INR] Stat Lab 11/02/23 16:14 Completed Magnesium Stat Lab 11/02/23 16:14 Completed Rapid PCR Covid and Flu A/B Stat Lab 11/02/23 16:34 Completed Trop I [Troponin I] Stat Lab 11/02/23 16:14 Completed Troponin I Q3H Lab 11/02/23 18:01 Completed UA [Urinalysis and Microscopic] Stat Lab 11/02/23 18:08 Completed ECG Data Tracing #1: Attestation: I reviewed this ECG and interpreted as documented below: ECG Narrative: Sinus bradycardia with a ventricular rate of [address] elevations concerning for ischemia. Incomplete right bundle branch block. Borderline left axis deviation. ECG initial impression date: 11/02/23 ECG initial impression time: 16:16 MDM Narrative Medical Decision Narrative: In summary patient is a 67-year-old male who presents to the emergency department for evaluation of chest pain. Patient is initially slightly hypertensive with a blood pressure of 176/84 but with a heart rate of 55 respiratory rate is 16 satting at 97% on room air upon arrival, and afebrile. Physical exam is unremarkable for any reproducible or eliciting reproduction of his discomfort both in the anterior chest and in the left thoracic paraspinous muscle. Patient has negative CVA tenderness to percussion. Patient has full range of motion of his dorsal spine.. Differential diagnosis includes ACS versus PE versus gastrointestinal cause versus musculoskeletal spasm Cetera. Initial workup will be conducted with twelve-lead EKG hematologic laboratory investigations as well as a plain film chest x-ray.. Initial interventions include Toradol Tylenol. Initial workup reviewed by me shows that his hematologic labs are nonactionable including a undetectable troponin. My informal interpretation of his plain film chest x-ray shows no acute processes with radiologist read pending. His second troponin was also undetectable.. Upon repeat evaluation shows that he has had significant improvement of his left back pain to the point where it is almost completely gone.. Given this patient is referred back to his PCP at his PCPs request for further risk stratification in the a.m. Patient return the emergency department for any worsening or change in his symptoms. Patient verbalized understanding and agreement.
--- NOTE | 2023-11-02 16:15 | ECG_ITS ---
APPROVED REPORT Exam: Resting ECG HR:55 bpm ECG Measurements Heart Rate 55 AXES AZ 173 P 37 QRSd 109 QRS -30 QT 415 T 47 QTc 405 Conclusion SINUS BRADYCARDIA BORDERLINE LEFT AXIS DEVIATION [QRS AXIS < -20] INCOMPLETE RIGHT BUNDLE BRANCH BLOCK [90+ ms QRS DURATION, TERMINAL R IN V1/V2, 40+ ms S IN I/aVL/V4/V5/V6] Electronically signed by : YULY ARZATE, 11/02/2023 21:21:09
--- NOTE | 2023-11-02 16:28 | XR_ITS ---
PROCEDURE INFORMATION: Exam: XR Chest Exam date and time: 11/02/2023 4:30 PM Age: 67 years old Clinical indication: Sternal or substernal pain; Additional info: Chest pain TECHNIQUE: Imaging protocol: Radiologic exam of the chest. Views: 1 view. COMPARISON: CR XR CHEST AP 04/25/2020 5:46 PM FINDINGS: Lungs: Mild bibasilar atelectasis. Pleural spaces: Normal. No pleural effusion. No pneumothorax. Heart/Mediastinum: Normal. No cardiomegaly. Vasculature: Mildly tortuous thoracic aorta. Bones/joints: Unremarkable. IMPRESSION: Mild bibasilar atelectasis.
[2023-11-02 16:30] VITALS: BP 176/84; PULSE 55; O2SAT 97
[2023-11-02 16:34] VITALS: BP 175/85; PULSE 59; RESP 16; TEMP 36.9; O2SAT 99; BMI 29.4
[2023-11-02 16:37] LABS: Coronavirus 19, PCR Not Detected (NotDetected); Influenza A, PCR Not Detected (NotDetected); Influenza B, PCR Not Detected (NotDetected)
[2023-11-02 16:43] LABS: Basophils # 0.1 K/mm3 (0-0.2); Eosinophils # 0.3 K/mm3 (0.0-0.4); Eosinophils % 3.5 % (0.1-12.0); Hematocrit 43.1 % (42.0-52.0); Lymphocytes # 1.4 K/mm3 (0.7-4.5); Lymphocytes % 18.7 % (10-50); Mean Corpuscular HGB Conc 32.5 g/dL (31.8-35.4); Mean Corpuscular Hemoglobin 29.9 pg (27.0-31.2); Mean Platelet Volume 8.6 fl (7.4-10.4); Monocytes # 0.4 K/mm3 (0.1-1.0); Monocytes % 5.2 % (1.7-9.3); Neutrophils # 5.5 K/mm3 (1.8-7.8); Neutrophils % 71.5 % (37.0-80.0); Platelet Count 220 K/mm3 (142-424); Red Blood Count 4.69 M/mm3 (4.60-6.20); Red Cell Distribution Width 14.5 % (11.5-17.5); White Blood Count 7.7 K/mm3 (4.8-10.8)
[2023-11-02 16:46] LABS: Alanine Aminotransferase 27 U/L (12-78); Albumin Level 4.3 g/dl (3.5-5.0); Albumin/Globulin Ratio 1.7 (1.1-1.8); Alkaline Phosphatase 66 U/L (38-126); Aspartate Amino Transferase 29 U/L (17-59); Bilirubin,Total 0.6 mg/dl (0.2-1.3); Blood Urea Nitrogen 21 mg/dl (9-20); Calcium 9.3 mg/dl (8.4-10.2); Carbon Dioxide 28 mmol/L (22.0-30.0); Chloride 105 mmol/L (98-107); Creatinine Clearance Estimated 88 mL/min (50-200); Estimated Glomerular Filt Rate 67 ml/min (>60); GFR (African American) 81 ML/MIN (>60); Globulin 2.5 g/dL (1.3-3.2); Glucose 88 mg/dl (74-100); Magnesium 2.2 mg/dl (1.6-2.3); Sodium 137 mmol/L (136-145); Total Protein,Serum 6.8 g/dl (6.3-8.2)
[2023-11-02 16:48] LABS: INR 1.01 (0.9-1.1); Prothrombin Time 10.9 seconds (10.1-12.5)
[2023-11-02 16:59] LABS: Troponin I < 0.01 ng/ml (0.00-0.034)
[2023-11-02] MEDS: ACETAMINOPHEN 1,000MG/100ML VIAL 1000 MG IV (17:02)
[2023-11-02] MEDS: KETOROLAC 30MG/ML VIAL 15 MG IV (17:03)
[2023-11-02 17:04] LABS: D-Dimer 0.29 ug/mL (0.0-0.5)
[2023-11-02 17:06] VITALS: BP 166/81; PULSE 52; RESP 14; O2SAT 97
--- NOTE | 2023-11-02 17:22 | PC.NURSE ---
Rounded on patient, patient given warm blanket at this time.
--- NOTE | 2023-11-02 17:34 | PC.NURSE ---
patient assisted to restroom at this time.
[2023-11-02 18:07] VITALS: BP 162/86; RESP 13
[2023-11-02 18:14] LABS: Microscopic, Urine URINE MICROSCOPIC (MICROSCOPIC)
[2023-11-02 18:18] LABS: Appearance,Urine CLEAR (Clear); Bilirubin,Urine Negative (Negative); Blood, Urine Negative (Negative); Color,Urine YELLOW (Yellow); Glucose,Urine (UA) Negative (Negative); Ketones,Urine Negative (Negative); Leukocyte Esterase,Urine Negative (Negative); Nitrate,Urine Negative (Negative); PH,Urine 6.5 (5.0-8.5); Protein,Urine Negative (Negative); Urobilinogen,Urine 0.2 EU/dl (0.2)
[2023-11-02 18:31] LABS: Squamous Epithelial Cell,Urine Occasional #/hpf (0-5)
[2023-11-02 18:42] LABS: Troponin I < 0.01 ng/ml (0.00-0.034)
[2023-11-02 18:55] VITALS: BP 162/86; PULSE 55; RESP 15; TEMP 36.9; O2SAT 99
== END 2023-11-02 18:55 | disposition home or self-care (01) ==
PROVIDERS: Physician Assistant; Emergency Provider Emergency Medicine; PCP Internal Medicine Adolescent Medicine
DX: R07.9 Chest pain, unspecified (principal); I10 Essential (primary) hypertension; R00.1 Bradycardia, unspecified; I45.19 Other right bundle-branch block
CPT/HCPCS: 71045; 80053; 81001; 83735; 84484; 85025; 85378; 85610; 87636; 93005; 96374; 96375; 99285; J0131

== ENCOUNTER 2023-11-23 08:33 | Outpatient (POV) | payer MEDICARE, SELFPAY ==
[2023-11-23 08:49] VITALS: BP 110/63; PULSE 76; RESP 18; TEMP 36.7; O2SAT 96; BMI 29.9
--- NOTE | 2023-11-23 11:59 | A.OFFVIS_ITS ---
[facility] Pain Management SOAP Note Subjective:: Patient is a pleasant 67-year-old male who presents today for follow-up. Today he rates his pain a 3 out of 10. Patient did previously have a left sural nerve block done at the [facility] location. He states that initially with this injection he had significant pain for the First couple of days however it did start to ease up after that.. Today he does still continue to have pain in and around his bilateral feet however he states on the left side that it is not as prominent down into the medial aspect but does radiate up into his lower left calf on the lateral side. Patient does state that he feels like it could be more of combination related to the plantar fasciitis and the tears that were seen in his last MRI. Patient was prescribed meloxicam 7.5 mg twice a day and [place] 5 mg twice a day in the past. He states that he really only takes the [place] once a day as needed does help. He states he continues to have chronic pain in his feet and is trying to minimize having a surgery. His Chris has been reviewed. Review of Systems: General: No recent weight changes, no fever, no sleep disturbances Respiratory: No cough, no shortness of air, no recurring pulmonary infections Cardiovascular/peripheral vascular: No chest pain, no palpitations, no edema, no shortness of breath Gastrointestinal: No new onset incontinence, normal bowel movements reported Genitourinary: No new onset incontinence Musculoskeletal: Bilateral feet pain, left ankle, calf pain Psychiatric: [Normal mood/affect] Neurological: [Denies weakness in extremities], [denies balance issues] Objective:: Physical Exam: General: Alert and oriented x3, no acute distress, pleasant and cooperative Lungs: Respirations even and unlabored, symmetrical chest expansion Eyes: PERRL Musculoskeletal: Flexion and extension of left ankle somewhat guarded secondary to pain, [antalgic gait noted] Neurological: Speech clear, no gross sensory deficit Assessment:: Bilateral feet pain, left ankle pain, plantar fasciitis with partial tear to the left foot, peroneus split tear Plan:: I will send in refills of the [place] 5 mg and change it to daily. Patient will b e provided a 1 month supply. I have discussed with the patient in future he may benefit from additional injections as well as possible spinal cord stimulator trial. Risk and benefits and educational handouts were given at today's visit. We will follow-up with this at future visits. Patient will return to clinic in 1 month for reevaluation of symptoms and plan of care. Risks and benefits of the medication have been explained in detail to the patient. The patient does understand the risk of dependence on the medication when given over a prolonged period. Patient has been advised of risks of oversedation with the prescribed medication. Narcan has been offered to the paitent in the event of oversedation. Patient has been advised that a family member should also be educated regarding administration of Narcan. The patient has been advised to consult with his/her primary care provider and pharmacist regarding drug-drug interaction of medications currently prescribed. Patient has been prescribed a controlled substance after being counseled on the medication, medication safety, and possible side effects. Opioid contract was reviewed and signed by the patient, and that they have agreed to all of the terms set forth by our compliance program. Patient has been instructed to contact the clinic with any concerns before the next appointment. Dr. Alcala has reviewed this note and agrees with this plan of care. This note was dictated using voice recognition software and make contain errors or omissions. [facility] Disclaimer: The information contained in this section may have been updated after the patient was seen, as this information can be updated by other users. Medical History (Updated 11/02/23 @ 18:47 by ROBBIE Oakley) Arrhythmia HTN (hypertension) Surgical History (Updated 09/26/23 @ 14:43 by Lori aLu RN) H/O shoulder surgery H/O left knee surgery Family History (Updated 09/26/23 @ 14:43 by Lori Lau RN) Other Unknown family medical history Social History (Updated 09/26/23 @ 14:46 by Lori Lau RN) Smoking Status: Never smoker alcohol intake: current substance use type: denies use current occupational status: employed Travel in the last 8 weeks: None household members: spouse housing: house current occupational exposures/hazards: No caffeine: No
== END 2023-11-23 23:59 | disposition home or self-care (01) ==
PROVIDERS: PCP Internal Medicine Adolescent Medicine; Visit Provider Nurse Practitioner Family
DX: M79.671 Pain in right foot (principal); M79.672 Pain in left foot; M25.572 Pain in left ankle and joints of left foot; M72.2 Plantar fascial fibromatosis; S86.39 Other injury of muscle(s) and tendon(s) of peroneal muscle group at lower leg level
CPT/HCPCS: 99212; G0463

== ENCOUNTER 2024-01-15 17:30 | Inpatient (IN) | payer MEDICARE, OTHER, SELFPAY ==
[2024-01-15] VITALS (8 sets, daily range): BP systolic 135–165; BP diastolic 74–94; PULSE 62–78; RESP 16–20; TEMP 36.4–36.8; O2SAT 95–97; BMI 33.9
--- NOTE | 2024-01-15 17:33 | PC.NURSE ---
DR CARLSON AT BEDSIDE
--- NOTE | 2024-01-15 17:37 | CT_ITS ---
PROCEDURE INFORMATION: Exam: CT Abdomen And Pelvis With Contrast Exam date and time: 01/15/2024 6:12 PM Age: 68 years old Clinical indication: Abdominal pain; Additional info: Prev diverticulitis, abd pain, last bm 1 week TECHNIQUE: Imaging protocol: Computed tomography of the abdomen and pelvis with contrast. Radiation optimization: All CT scans at this facility use at least one of these dose optimization techniques: automated exposure control; mA and/or kV adjustment per patient size (includes targeted exams where dose is matched to clinical indication); or iterative reconstruction. Contrast material: ISOVUE; Contrast volume: 75 ml; Contrast route: IV; COMPARISON: 1. CT ABDOMEN PELVIS W CON 07/10/2022 4:[address] ABDOMEN PELVIS W CON 04/25/2020 4:[address] abdomen pelvis wo/w con 08/31/2017 11:22 AM FINDINGS: Lungs: Scattered areas of bronchial wall thickening which are likely chronic inflammatory. A few areas of subpleural reticulation are noted, nonspecific. Liver: Normal. Gallbladder and bile ducts: No acute process. Pancreas: Normal. Spleen: Normal. Adrenal glands: The adrenal glands appear normal. Kidneys and ureters: There are simple appearing left upper pole renal cysts. Stomach and bowel: There is significant fluid distension of the majority of the small bowel with a couple of small focal areas of narrowing of the distal ileum such as on image 29 series 1001 and image 42 series 1001. More proximal focus of narrowing appears to correlate with an area of nodular hyperenhancement (image 91 series 3). There is fluid distension of the colon proximally with distal stool distension. Appendix: No evidence of appendicitis. Intraperitoneal space: Unremarkable. Vasculature: There is atherosclerotic disease of the visualized aorta and its major branch vessels. Lymph nodes: No lymphadenopathy. Urinary bladder: There is mild bladder wall thickening, possibly due to under distention and a nonspecific finding. Reproductive: The prostate is enlarged. Bones/joints: There is diffuse degenerative disease of the visualized osseous structures. Soft tissues: There are fat containing bilateral inguinal hernias. Other findings: No evidence for perforation. IMPRESSION: Fluid distension of the majority of the distal small bowel as well as the proximal colon with focal areas of segmental narrowing and possible nodular enhancement involving the distal ileum. Findings could reflect advanced enterocolitis, or partial small bowel obstruction. Intraluminal focus of nodular enhancement in the distal ileum is somewhat concerning and follow-up CT or MR enterography at conclusion of acute episode is recommended to determine persistence versus resolution. COMMENTS: Consistent with the [employer]'s Incidental Findings Committee white paper (J Am Melchor Radiol 2018): Any incidental renal lesion less than 1 cm or classified as too small to characterize, or any incidental cystic renal lesion characterized as simple-appearing, is likely benign. No follow-up imaging is recommended for these lesions per consensus recommendations based on imaging criteria.
--- NOTE | 2024-01-15 17:39 | HMH.EDGENADL ---
Discharge Plan Disposition Patient Disposition: Admitted Chief Complaint: Abdominal Pain Prescriptions Prescriptions: No Action meloxicam 7.5 mg tablet 15 mg PO DAILY 30 Days Qty: 60 2RF Clenpiq 10 mg-3.5 gram- 12 gram/160 mL solution 160 ml PO DAILY Qty: 350 0RF Rx Instructions: take first dose at 5-9PM evening before colonoscopy; 2nd dose the next day approximately 5 hrs before colonoscopy ondansetron 4 mg tablet,disintegrating 4 mg PO Q8H PRN (Reason: nausea and vomiting) Qty: 10 0RF hydrocodone-acetaminophen 5-325 mg tablet 1 tab PO BID Qty: 28 0RF amlodipine 5 MG tablet 5 mg PO DAILY tamsulosin 0.4 MG capsule 0.4 mg PO HS hydrocodone-acetaminophen 5-325 mg tablet 1 tab PO DAILY Qty: 30 0RF Referrals Follow up/Referrals: Bandar Dela Cruz MD [Primary Care Provider] - See instructions Clinical Impressions Clinical Impression: Partial obstruction of small intestine, Abnormal computed tomography of cecum and terminal ileum Instructions Patient Instructions: DI for Acute Abdominal Pain Discharge ED Provider: Maxime [facility] HPI General Chief complaint: Abdominal Pain Stated complaint: abd pain Time Seen by Provider: 01/15/24 17:31 History of Present Illness HPI narrative: Patient is a 68-year-old male with past medical history of previous diverticulitis, hypertension who presents emergency department for evaluation of abdominal pain. Onset was acute, since yesterday evening, paroxysmal, severe, generalized across the abdomen. There is associated nonbloody vomiting. Patient has bowel movement once weekly at baseline, last bowel movement approximately 9 to 10 days ago. Still passing flatus. No other acute complaints at this time. No abdominal surgical history. Related Data Home Medications Medication Instructions Recorded Confirmed amlodipine 5 mg tablet 5 mg PO DAILY High blood pressure 04/25/20 11/23/23 tamsulosin 0.4 mg capsule 0.4 mg PO HS URINARY 04/26/20 11/23/23 Previous Rx's Medication Instructions Recorded meloxicam 7.5 mg tablet 15 mg (2 x 7.5 mg) PO DAILY left 05/12/22 foot pain 30 days #60 tabs ondansetron 4 mg disintegrating 4 mg PO Q8H PRN nausea and 07/10/22 tablet vomiting #10 tabs sod picosulf 10 mg-magnes 3.5 160 ml PO DAILY 2 doses #350 mL 07/11/23 gram-citric 12 gram/160 mL oral solution (Clenpiq) hydrocodone 5 mg-acetaminophen 325 1 tab PO BID #28 tabs 10/04/23 mg tablet hydrocodone 5 mg-acetaminophen 325 1 tab PO DAILY #30 tabs 11/23/23 mg tablet Allergies Allergy/AdvReac Type Severity Reaction Status Date / Time No Known Allergies Allergy Verified 07/12/23 09:01 [facility] Disclaimer: The information contained in this section may have been updated after the patient was seen, as this information can be updated by other users. Medical History (Updated 01/15/24 @ 20:04 by Maxime Grove MD) Arrhythmia HTN (hypertension) Surgical History (Updated 09/26/23 @ 14:43 by Lori Lau RN) H/O shoulder surgery H/O left knee surgery Family History (Updated 09/26/23 @ 14:43 by Lori Lau RN) Other Unknown family medical history Social History (Updated 09/26/23 @ 14:46 by Lori Lau RN) Smoking Status: Never smoker alcohol intake: current alcohol intake frequency: a few times a week substance use type: denies use current occupational status: employed Travel in the last 8 weeks: None household members: spouse housing: house current occupational exposures/hazards: No caffeine: No ROS Obtained: Yes Systems reviewed as appropriate & no additional complaints except as documented Physical Exam General General appearance: alert and in no apparent distress Head Head exam: atraumatic and normocephalic Eye Eye exam: Present PERRL and EOMI ENT ENT exam: Present mucous membranes moist Neck Neck exam: Present normal inspection Chest Chest inspection: Present normal inspection and symmetric chest wall rise Respiratory Respiratory exam: Present normal lung sounds bilaterally; Absent respiratory distress Cardiovascular Cardiovascular exam: Present regular rate and normal rhythm Abdominal Exam Abdominal exam: Present soft, tenderness (Diffuse, mild) and guarding (Voluntary) Extremities Exam Extremities exam: Present normal inspection Neurological Exam Neurological exam: Present alert Psychiatric Psychiatric exam: Present normal affect Skin Skin exam: Present warm and dry Medical Decision Making Chris Inquiry Pt receiving controlled substance: No Vital Signs: 01/15/24 17:31 01/15/24 17:48 01/15/24 18:00 Temperature 97.6 F Temperature Source Oral Pulse Rate 76 72 Pulse Rate [Radial] 78 Respiratory Rate 18 16 16 Blood Pressure 161/94 H 148/88 H Blood Pressure [Right Arm] 161/94 H Blood Pressure Mean 108 Blood Pressure Mean [Right Arm] 116 Blood Pressure Source [Right Arm] Automatic Cuff Blood Pressure Position [Right Arm] Sitting 02 Sat by Pulse Oximetry 95 97 96 Oxygen Delivery Method Room Air Lab Data Lab Results 01/15/24 16:02: Urine Color Yellow, Urine Appearance Clear, Urine pH 6.5, Ur Specific [place] 1.020, Urine Protein 1+, Urine Glucose (UA) Negative, Urine Ketones 1+, Urine Blood Negative, Urine Nitrate Negative, Urine Bilirubin 1+ A, Urine Urobilinogen 0.2, Ur Leukocyte Esterase Negative, Urine RBC None, Urine WBC None, Ur Squamous Epith Cells None, Urine Bacteria None 01/15/24 17:26: WBC 10.8, RBC 5.85, Hgb 17.4, Hct 54.8 H, MCV 93.6, MCH 29.8, MCHC 31.8, RDW 14.1, Plt Count 272, MPV 8.6, Neut % (Auto) 81.2 H, Lymph % (Auto) 11.0, [place] % (Auto) 5.0, Eos % (Auto) 2.0, Baso % (Auto) 0.8, Neut # (Auto) 8.8 H, Lymph # (Auto) 1.2, [place] # (Auto) 0.5, Eos # (Auto) 0.2, Baso # (Auto) 0.1, Sodium 138, Potassium 4.1, Chloride 99, Carbon Dioxide 31 H, Anion Gap 12.1, BUN 20, Creatinine 1.20, Estimated Creat Clear 79, Estimated GFR 60, Est GFR ( Amer) 73, Glucose 118 H, Calcium 10.4 H, Total Bilirubin 1.5 H, AST 36, ALT 25, Alkaline Phosphatase 88, Total Protein 8.6 H D, Albumin 5.1 H, Globulin 3.5 H, Albumin/Globulin Ratio 1.5, Lipase 25 01/15/24 17:26 01/15/24 17:26 Orders (Tests/Meds): ED MEDICATIONS Generic Name Dose Route Start Last Admin Trade Name Freq PRN Reason Stop Dose Admin Sodium Chloride 10 ml 01/15/24 18:06 01/15/24 18:07 Sodium Chloride 0.9% 10ml Syr (Rad Only) IV 02/14/24 18:05 10 ml NEEDED PRN Administration Maintain IV Site Discontinued Medications Generic Name Dose Route Start Last Admin Trade Name Abdirahman PRN Reason Stop Dose Admin Acetaminophen 1,000 mg 01/15/24 17:37 01/15/24 17:48 Acetaminophen 1,000mg/100ml Vial IV 01/15/24 17:38 1,000 mg ONCE ONE Administration Lactated Ringer's 1,000 mls @ 999 mls/hr 01/15/24 17:50 01/15/24 17:51 Lactated Ringer's 1000 Ml Bag IV 01/15/24 18:50 999 mls/hr .Q1H1M ONE Administration Iopamidol 75 ml 01/15/24 18:06 01/15/24 18:07 Iopamidol-370 (76%);100ml Bottle IV 01/15/24 18:07 75 ml ONCE ONE Administration Morphine Sulfate 4 mg 01/15/24 17:37 01/15/24 17:48 Morphine 4mg/Ml Syringe IV 01/15/24 17:38 4 mg ONCE ONE Administration Ondansetron HCl 4 mg 01/15/24 17:37 01/15/24 17:48 Ondansetron 4mg/2ml Vial IV 01/15/24 17:38 4 mg ONCE ONE Administration ORDERS Category Date Time Status CT abdomen pelvis w con Stat Cat Scan 01/15/24 17:37 Completed Consult to General Surgery [CONS] Stat Cons 01/15/24 20:01 Ordered CBC w/Auto Diff [Complete Blood Count Auto Diff] Stat Lab 01/15/24 17:26 Completed CMP [Comprehensive Metabolic Panel] Stat Lab 01/15/24 17:26 Completed Lipase Stat Lab 01/15/24 17:26 Completed UA [Urinalysis and Microscopic] Stat Lab 01/15/24 16:02 Completed Medical Decision Narrative: In summary patient is a 68-year-old male past medical history described above presents emergency department for evaluation of abdominal pain in the setting of previous diverticulitis. Patient is hemodynamically stable nontoxic-appearing upon arrival, afebrile, appearing in pain. Differential diagnosis includes diverticulitis, bowel obstruction, among others. Workup will be conducted with hematologic labs, urinalysis, CT abdomen pelvis IV contrast. Initial interventions include crystalloid bolus, Zofran, morphine, IV Tylenol. Workup reviewed by me, hematologic labs are nonactionable, no significant leukocytosis, no ELDER or critical electrolyte abnormality, trivial elevation of total bilirubin, no elevated transaminases or lipase. Urinalysis interpreted by me and not consistent with infection. CT imaging shows fluid distention of majority of the distal small bowel and as well as the proximal colon with multiple areas of segmental narrowing and possible nodular enhancement of the distal ileum which could reflect an advanced enteric colitis or partial small bowel obstruction. Intraluminal focus outpatient repeat imaging was recommended. The case was discussed with surgery Dr. Segura who agrees inpatient admission and observation is warranted. The case was discussed with hospital medicine regarding management they admit the patient their service for continued evaluation at this time. Critical Care Critical Care Time Critical Care Time: No
[2024-01-15] MEDS: ONDANSETRON 4MG/2ML VIAL 4 MG IV (17:48)
[2024-01-15] MEDS: MORPHINE 4MG/ML SYRINGE 4 MG IV (17:48)
[2024-01-15] MEDS: ACETAMINOPHEN 1,000MG/100ML VIAL 1000 MG IV (17:48)
[2024-01-15 17:50] LABS: Basophils # 0.1 K/mm3 (0-0.2); Basophils % 0.8 % (0.1-2.0); Eosinophils # 0.2 K/mm3 (0.0-0.4); Hematocrit 54.8 % (42.0-52.0); Hemoglobin 17.4 g/dL (14.1-18.0); Lymphocytes # 1.2 K/mm3 (0.7-4.5); Mean Corpuscular HGB Conc 31.8 g/dL (31.8-35.4); Mean Corpuscular Hemoglobin 29.8 pg (27.0-31.2); Mean Corpuscular Volume 93.6 fl (80-94); Mean Platelet Volume 8.6 fl (7.4-10.4); Monocytes # 0.5 K/mm3 (0.1-1.0); Neutrophils # 8.8 K/mm3 (1.8-7.8); Neutrophils % 81.2 % (37.0-80.0); Platelet Count 272 K/mm3 (142-424); Red Blood Count 5.85 M/mm3 (4.60-6.20); Red Cell Distribution Width 14.1 % (11.5-17.5); White Blood Count 10.8 K/mm3 (4.8-10.8)
[2024-01-15] MEDS: LACTATED RINGERS 1000ML 1,000 ML 999 ML IV (17:51)
[2024-01-15 17:53] LABS: Chloride 99 mmol/L (98-107); Potassium 4.1 mmoL/L (3.5-5.1); Sodium 138 mmol/L (136-145)
[2024-01-15 17:56] LABS: Alanine Aminotransferase 25 U/L (12-78); Albumin Level 5.1 g/dl (3.5-5.0); Albumin/Globulin Ratio 1.5 (1.1-1.8); Alkaline Phosphatase 88 U/L (38-126); Anion Gap 12.1 mEq/L (5-15); Aspartate Amino Transferase 36 U/L (17-59); Bilirubin,Total 1.5 mg/dl (0.2-1.3); Blood Urea Nitrogen 20 mg/dl (9-20); Calcium 10.4 mg/dl (8.4-10.2); Carbon Dioxide 31 mmol/L (22.0-30.0); Creatinine Clearance Estimated 79 mL/min (50-200); Estimated Glomerular Filt Rate 60 ml/min (>60); GFR (African American) 73 ML/MIN (>60); Globulin 3.5 g/dL (1.3-3.2); Glucose 118 mg/dl (74-100); Lipase 25 U/L (23-300); Total Protein,Serum 8.6 g/dl (6.3-8.2)
--- NOTE | 2024-01-15 18:06 | PC.NURSE ---
PT GONE TO CT
[2024-01-15] MEDS: SODIUM CHLORIDE 0.9% 10ML SYR (RAD ONLY) 10 ML IV (18:07)
[2024-01-15] MEDS: IOPAMIDOL-370 (76%);100ML BOTTLE 75 ML IV (18:07)
[2024-01-15 18:10] LABS: Microscopic, Urine URINE MICROSCOPIC (MICROSCOPIC)
[2024-01-15 18:16] LABS: Appearance,Urine CLEAR (Clear); Blood, Urine Negative (Negative); Color,Urine YELLOW (Yellow); Glucose,Urine (UA) Negative (Negative); Ketones,Urine 1+ (Negative); Leukocyte Esterase,Urine Negative (Negative); Nitrate,Urine Negative (Negative); PH,Urine 6.5 (5.0-8.5); Protein,Urine 1+ (Negative); Urobilinogen,Urine 0.2 EU/dl (0.2)
--- NOTE | 2024-01-15 18:16 | PC.NURSE ---
PT RETURNED FROM CT
[2024-01-15 18:58] LABS: Bilirubin,Urine 1+ (Negative)
--- NOTE | 2024-01-15 19:28 | PC.NURSE ---
Dr. Segura paged, on phone with ED doctor
--- NOTE | 2024-01-15 20:05 | PC.NURSE ---
Patient being admitted for partial SBO to room 209 to hospitalist; observation status.
--- NOTE | 2024-01-15 20:08 | EXP.HP ---
History of Present Illness *Admission Date: 01/15/24 *Reason for visit:: abd pain *History of present illness: This is a 68-year-old male with PMHx of previous diverticulitis and hypertension who presented emergency department for evaluation of abdominal pain. Onset was acute, since yesterday evening, paroxysmal, severe, generalized across the abdomen with associated nonbloody vomiting. Patient has bowel movement once weekly at baseline, last bowel movement approximately 9 to 10 days ago. Still passing flatus. No other acute complaints at this time. No abdominal surgical history other than inguinal hernia. Admitted for further management [facility] Disclaimer: The information contained in this section may have been updated after the patient was seen, as this information can be updated by other users. Medical History (Updated 01/16/24 @ 05:57 by Anatoliy Dougherty APRN) Arrhythmia HTN (hypertension) Surgical History (Updated 09/26/23 @ 14:43 by Lori Lau RN) H/O shoulder surgery H/O left knee surgery Family History (Updated 09/26/23 @ 14:43 by Lori Lau RN) Other Unknown family medical history Social History (Updated 01/15/24 @ 21:11 by Yeni Herrera RN) Smoking Status: Never smoker alcohol intake: current alcohol intake frequency: a few times a week substance use type: denies use current occupational status: employed Travel in the last 8 weeks: None household members: spouse housing: house current occupational exposures/hazards: No caffeine: No Review of Systems Review of Systems Review of systems:: pertinent systems reviewed and negative unless documented below Meds Home Medications and Allergies Home Medications Medication Instructions Recorded Confirmed Type tamsulosin 0.4 mg capsule 0.4 mg PO HS URINARY 04/26/20 01/15/24 History New Prescriptions to Start Prescriptions: Allergies Allergy/AdvReac Type Severity Reaction Status Date / Time No Known Allergies Allergy Verified 07/12/23 09:01 Exam Data for Last 24 hours Vital signs and Labs for Last 24 Hours: Temp Pulse Resp BP Pulse Ox O2 Del Method 97.6 F 72 16 148/88 H 96 Room Air 01/15/24 17:31 01/15/24 18:00 01/15/24 18:00 01/15/24 18:00 01/15/24 18:00 01/15/24 17:31 Laboratory Results - last 24 hr 01/15/24 16:02: Urine Color Yellow, Urine Appearance Clear, Urine pH 6.5, Ur Specific [place] 1.020, Urine Protein 1+, Urine Glucose (UA) Negative, Urine Ketones 1+, Urine Blood Negative, Urine Nitrate Negative, Urine Bilirubin 1+ A, Urine Urobilinogen 0.2, Ur Leukocyte Esterase Negative, Urine RBC None, Urine WBC None, Ur Squamous Epith Cells None, Urine Bacteria None 01/15/24 17:26: WBC 10.8, RBC 5.85, Hgb 17.4, Hct 54.8 H, MCV 93.6, MCH 29.8, MCHC 31.8, RDW 14.1, Plt Count 272, MPV 8.6, Neut % (Auto) 81.2 H, Lymph % (Auto) 11.0, [place] % (Auto) 5.0, Eos % (Auto) 2.0, Baso % (Auto) 0.8, Neut # (Auto) 8.8 H, Lymph # (Auto) 1.2, [place] # (Auto) 0.5, Eos # (Auto) 0.2, Baso # (Auto) 0.1, Sodium 138, Potassium 4.1, Chloride 99, Carbon Dioxide 31 H, Anion Gap 12.1, BUN 20, Creatinine 1.20, Estimated Creat Clear 79, Estimated GFR 60, Est GFR ( Amer) 73, Glucose 118 H, Calcium 10.4 H, Total Bilirubin 1.5 H, AST 36, ALT 25, Alkaline Phosphatase 88, Total Protein 8.6 H D, Albumin 5.1 H, Globulin 3.5 H, Albumin/Globulin Ratio 1.5, Lipase 25 I & O for Last 24 hours: Intake & Output 01/12/24 01/13/24 01/14/24 01/15/24 23:59 23:59 23:59 23:59 Weight 95.254 kg Constitutional Constitutional: no acute distress *Routine HEENT Exam Head: Present normocephalic Eye: Present EOMI and PERRL ENT: Present mucous membranes moist *Routine Neck Exam Neck: Present supple; Absent lymphadenopathy *Routine Respiratory Exam Respiratory: Present CTA bilaterally *Routine Cardiovascular Exam Cardiovascular: Present RRR *Routine Abdominal Exam Abdominal: Present soft, normoactive bowel sounds, tenderness and guarding; Absent distended *Routine Rectal Exam Rectal:: deferred *Routine Genitalia Exam Genitalia:: deferred *Routine Extremities Exam Extremities: Absent cyanosis, clubbing or edema *Routine Skin Exam Skin: Present warm; Absent rash *Routine Neurological Exam Neurological: Present alert and oriented X3 H&P: Result Imaging and Cardiology EKG: Status: image reviewed by me, Preliminary report and final report CT scan - abdomen: Status: image reviewed by me, Preliminary report and final report Assessment and Plan *Assessment and plan (1) Partial obstruction of small intestine: Status: Acute Category: Medical Code(s): K56.600 - Partial intestinal obstruction, unspecified as to cause (2) Abnormal computed tomography of cecum and terminal ileum: Status: Acute Category: Medical Code(s): R93.3 - Abnormal findings on diagnostic imaging of other parts of digestive tract (3) HTN (hypertension): Status: Acute Qualifiers: Hypertension type: unspecified Qualified Code(s): I10 - Essential (primary) hypertension Category: Medical Code(s): I10 - Essential (primary) hypertension Plan 68-year-old male with PMHx of previous diverticulitis. BPH and hypertension who presented emergency department for evaluation of abdominal pain. Onset was acute, since yesterday evening, paroxysmal, severe, generalized across the abdomen with associated nonbloody vomiting. On arrival patient non toxic appearance. initials labs are grossly unremarkable. CT imaging shows fluid distention of majority of the distal small bowel and as well as the proximal colon with multiple areas of segmental narrowing and possible nodular enhancement of the distal ileum which could reflect an advanced enteric colitis or partial small bowel obstruction. Surgeon sail repair person consulted. Discussed with ED. agreed for admission.Plan as follow: -Abdominal pain with N/V, associated with partial SBO Multiples nodular enhancement of the distal ileum: Admit patient for medical service, and continued monitoring Surgical consult. Appreciate their insight. Medical management versus surgical Keep patient n.p.o. ice chips okay NG tube was considered. Deferred at this time. Due to benign signs of the stomach CT of the reviewed Continue IV hydration. Nausea, vomiting management. Zofran as needed Repeat labs in the morning Vital signs per unit History of hypertension nonpharmacologic management Patient on home tamsulosin SCD for DVT prophylaxis On Protonix for GI bleed protection Full code
--- NOTE | 2024-01-15 20:17 | PC.NURSE ---
rounded on pt at this time. pt reports he feels much better and would like to drink some water. OK'd by MD Grove
--- NOTE | 2024-01-15 20:24 | PC.NURSE ---
Nurse to nurse report to Donna MCGARRY.
--- NOTE | 2024-01-15 20:25 | PC.NURSE ---
rounded on patient, no needs at this time, patient is waiting to be transferred to floor
[2024-01-15] MEDS: 0.9 % SODIUM CHLORIDE 1000ML 1,000 ML 100 ML IV (20:59)
[2024-01-16 04:00] VITALS: BP 130/67; PULSE 54; RESP 16; TEMP 36.6; O2SAT 99; BMI 32.4
[2024-01-16 06:12] LABS: Basophils # 0.1 K/mm3 (0-0.2); Basophils % 0.7 % (0.1-2.0); Eosinophils # 0.3 K/mm3 (0.0-0.4); Eosinophils % 3.5 % (0.1-12.0); Hematocrit 45.3 % (42.0-52.0); Lymphocytes % 12.4 % (10-50); Mean Corpuscular HGB Conc 31.6 g/dL (31.8-35.4); Mean Corpuscular Hemoglobin 29.7 pg (27.0-31.2); Mean Platelet Volume 8.6 fl (7.4-10.4); Monocytes # 0.6 K/mm3 (0.1-1.0); Monocytes % 7.3 % (1.7-9.3); Neutrophils # 5.8 K/mm3 (1.8-7.8); Neutrophils % 76.1 % (37.0-80.0); Platelet Count 211 K/mm3 (142-424); Red Blood Count 4.82 M/mm3 (4.60-6.20); Red Cell Distribution Width 14.2 % (11.5-17.5); White Blood Count 7.7 K/mm3 (4.8-10.8)
[2024-01-16 06:13] LABS: Chloride 109 mmol/L (98-107); Potassium 4.1 mmoL/L (3.5-5.1); Sodium 138 mmol/L (136-145)
[2024-01-16 06:16] LABS: Alanine Aminotransferase 15 U/L (12-78); Albumin Level 3.2 g/dl (3.5-5.0); Albumin/Globulin Ratio 1.4 (1.1-1.8); Alkaline Phosphatase 60 U/L (38-126); Anion Gap 6.1 mEq/L (5-15); Aspartate Amino Transferase 24 U/L (17-59); Bilirubin,Total 0.4 mg/dl (0.2-1.3); Blood Urea Nitrogen 18 mg/dl (9-20); Calcium 8.4 mg/dl (8.4-10.2); Carbon Dioxide 27 mmol/L (22.0-30.0); Creatinine Clearance Estimated 83 mL/min (50-200); Estimated Glomerular Filt Rate 67 ml/min (>60); GFR (African American) 81 ML/MIN (>60); Globulin 2.3 g/dL (1.3-3.2); Glucose 100 mg/dl (74-100); Total Protein,Serum 5.5 g/dl (6.3-8.2)
[2024-01-16 06:17] LABS: Magnesium 2.2 mg/dl (1.6-2.3)
[2024-01-16 06:23] LABS: Hemoglobin 14.3 g/dL (14.1-18.0)
[2024-01-16] MEDS: 0.9 % SODIUM CHLORIDE 1000ML 1,000 ML 100 ML IV (06:43)
--- NOTE | 2024-01-16 06:54 | EXP.SURG.CON ---
History of Present Illness *Admission Date: 01/15/24 *Reason for visit:: Small bowel obstruction *History of present illness: Patient is a 68-year-old male. His previous history of diverticulitis. He states that normally he moves his bowels about once a week or even longer. He had a preceding 9 to 10-day history of obstipation. He took a laxative. He developed acute onset of diffuse abdominal pain. He had been passing gas. Patient underwent colonoscopy with Dr. Meliton Guerrero on 11/07/2017 at which time he had left-sided diverticulosis and had 3 tubular adenomas removed from the ascending colon, sigmoid colon, and descending colon measuring in size between 5 and 8 mm.. Recommendation was for repeat colonoscopy 5 years. Evaluation in the emergency department included CT scan which revealed findings of fluid distention of the majority of the distal small bowel as well as proximal colon with focal areas of segmental narrowing and possible nodular enhancing involving the distal ileum. Findings could reflect advanced enterocolitis or partial small bowel obstruction. Intraluminal focus of nodular enhancement in the distal ileum is somewhat concerning and follow-up CT or MR enterography at conclusion of acute episode is recommended to determine persistence versus resolution. He was admitted for inpatient management. Surgical consultation was obtained. Of note, the patient had an admission in April 2020 for bowel obstruction he has prior history of open right inguinal hernia repair as a child and laparoscopic inguinal hernia repair. At that time he was managed nonoperatively for small bowel obstruction and had a small bowel follow-through revealing no evidence of any obstruction. Since admission the patient has had a bowel movement. He feels better. No nausea. [facility] Disclaimer: The information contained in this section may have been updated after the patient was seen, as this information can be updated by other users. Medical History (Updated 01/16/24 @ 05:57 by Anatoliy Dougherty APRN) Arrhythmia HTN (hypertension) Surgical History (Updated 09/26/23 @ 14:43 by Lori Lau RN) H/O shoulder surgery H/O left knee surgery Family History (Updated 09/26/23 @ 14:43 by Lori Lau RN) Other Unknown family medical history Social History (Updated 01/15/24 @ 21:11 by Yeni Herrera RN) Smoking Status: Never smoker alcohol intake: current alcohol intake frequency: a few times a week substance use type: denies use current occupational status: employed Travel in the last 8 weeks: None household members: spouse housing: house current occupational exposures/hazards: No caffeine: No Meds Home Medications and Allergies New Prescriptions to Start Prescriptions: Allergies Allergy/AdvReac Type Severity Reaction Status Date / Time No Known Allergies Allergy Verified 07/12/23 09:01 Exam (Inpt) Vital signs and Labs for Last 24 Hours: Temp Pulse Resp BP Pulse Ox O2 Del Method 97.9 F 54 L 16 130/67 99 Room Air 01/16/24 04:00 01/16/24 04:00 01/16/24 04:00 01/16/24 04:00 01/16/24 04:00 01/16/24 05:00 Laboratory Results - last 24 hr 01/15/24 16:02: Urine Color Yellow, Urine Appearance Clear, Urine pH 6.5, Ur Specific [place] 1.020, Urine Protein 1+, Urine Glucose (UA) Negative, Urine Ketones 1+, Urine Blood Negative, Urine Nitrate Negative, Urine Bilirubin 1+ A, Urine Urobilinogen 0.2, Ur Leukocyte Esterase Negative, Urine RBC None, Urine WBC None, Ur Squamous Epith Cells None, Urine Bacteria None 01/15/24 17:26: WBC 10.8, RBC 5.85, Hgb 17.4, Hct 54.8 H, MCV 93.6, MCH 29.8, MCHC 31.8, RDW 14.1, Plt Count 272, MPV 8.6, Neut % (Auto) 81.2 H, Lymph % (Auto) 11.0, [place] % (Auto) 5.0, Eos % (Auto) 2.0, Baso % (Auto) 0.8, Neut # (Auto) 8.8 H, Lymph # (Auto) 1.2, [place] # (Auto) 0.5, Eos # (Auto) 0.2, Baso # (Auto) 0.1, Sodium 138, Potassium 4.1, Chloride 99, Carbon Dioxide 31 H, Anion Gap 12.1, BUN 20, Creatinine 1.20, Estimated Creat Clear 79, Estimated GFR 60, Est GFR ( Amer) 73, Glucose 118 H, Calcium 10.4 H, Total Bilirubin 1.5 H, AST 36, ALT 25, Alkaline Phosphatase 88, Total Protein 8.6 H D, Albumin 5.1 H, Globulin 3.5 H, Albumin/Globulin Ratio 1.5, Lipase 25 01/16/24 05:37: WBC 7.7 D, RBC 4.82, Hgb 14.3 D, Hct 45.3, MCV 94.0, MCH 29.7, MCHC 31.6 L, RDW 14.2, Plt Count 211, MPV 8.6, Neut % (Auto) 76.1, Lymph % (Auto) 12.4, [place] % (Auto) 7.3, Eos % (Auto) 3.5, Baso % (Auto) 0.7, Neut # (Auto) 5.8, Lymph # (Auto) 1.0, [place] # (Auto) 0.6, Eos # (Auto) 0.3, Baso # (Auto) 0.1, Sodium 138, Potassium 4.1, Chloride 109 H, Carbon Dioxide 27, Anion Gap 6.1, BUN 18, Creatinine 1.10, Estimated Creat Clear 83, Estimated GFR 67, Est GFR ( Amer) 81, Glucose 100, Calcium 8.4, Magnesium 2.2, Total Bilirubin 0.4, AST 24 D, ALT 15 D, Alkaline Phosphatase 60, Total Protein 5.5 L D, Albumin 3.2 L D, Globulin 2.3, Albumin/Globulin Ratio 1.4 I & O for Labs for Last 24 Hours: Intake & Output 01/13/24 01/14/24 01/15/24 01/16/24 11:59 11:59 11:59 11:59 Output Total 0 / 0 Balance 0 / 0 Weight 201 lb 11.2 oz GI: Present soft; Absent tenderness Comments:: At this point his abdomen is soft and nontender. Results Labs 01/16/24 05:37 01/16/24 05:37 Labs: Laboratory Results - last 24 hr 01/15/24 16:02: Urine Color Yellow, Urine Appearance Clear, Urine pH 6.5, Ur Specific [place] 1.020, Urine Protein 1+, Urine Glucose (UA) Negative, Urine Ketones 1+, Urine Blood Negative, Urine Nitrate Negative, Urine Bilirubin 1+ A, Urine Urobilinogen 0.2, Ur Leukocyte Esterase Negative, Urine RBC None, Urine WBC None, Ur Squamous Epith Cells None, Urine Bacteria None 01/15/24 17:26: WBC 10.8, RBC 5.85, Hgb 17.4, Hct 54.8 H, MCV 93.6, MCH 29.8, MCHC 31.8, RDW 14.1, Plt Count 272, MPV 8.6, Neut % (Auto) 81.2 H, Lymph % (Auto) 11.0, [place] % (Auto) 5.0, Eos % (Auto) 2.0, Baso % (Auto) 0.8, Neut # (Auto) 8.8 H, Lymph # (Auto) 1.2, [place] # (Auto) 0.5, Eos # (Auto) 0.2, Baso # (Auto) 0.1, Sodium 138, Potassium 4.1, Chloride 99, Carbon Dioxide 31 H, Anion Gap 12.1, BUN 20, Creatinine 1.20, Estimated Creat Clear 79, Estimated GFR 60, Est GFR ( Amer) 73, Glucose 118 H, Calcium 10.4 H, Total Bilirubin 1.5 H, AST 36, ALT 25, Alkaline Phosphatase 88, Total Protein 8.6 H D, Albumin 5.1 H, Globulin 3.5 H, Albumin/Globulin Ratio 1.5, Lipase 25 /11/05 05:37: WBC 7.7 D, RBC 4.82, Hgb 14.3 D, Hct 45.3, MCV 94.0, MCH 29.7, MCHC 31.6 L, RDW 14.2, Plt Count 211, MPV 8.6, Neut % (Auto) 76.1, Lymph % (Auto) 12.4, [place] % (Auto) 7.3, Eos % (Auto) 3.5, Baso % (Auto) 0.7, Neut # (Auto) 5.8, Lymph # (Auto) 1.0, [place] # (Auto) 0.6, Eos # (Auto) 0.3, Baso # (Auto) 0.1, Sodium 138, Potassium 4.1, Chloride 109 H, Carbon Dioxide 27, Anion Gap 6.1, BUN 18, Creatinine 1.10, Estimated Creat Clear 83, Estimated GFR 67, Est GFR ( Amer) 81, Glucose 100, Calcium 8.4, Magnesium 2.2, Total Bilirubin 0.4, AST 24 D, ALT 15 D, Alkaline Phosphatase 60, Total Protein 5.5 L D, Albumin 3.2 L D, Globulin 2.3, Albumin/Globulin Ratio 1.4 Assessment and Plan *Assessment and plan (1) Partial obstruction of small intestine: Status: Acute Category: Medical Code(s): K56.600 - Partial intestinal obstruction, unspecified as to cause Plan Based on patient's prior history and CT findings he may have some anomaly in the distal small bowel creating chronic low-grade partial obstruction with occasional exacerbations as seen during this hospitalization and hospitalization in 2020. At this time he has shown significant improvement and is nontender and nondistended with no nausea. I will check acute abdominal series. If he continues to improve may be able to give limited clear liquids and possible small bowel follow-through tomorrow when radiology is available. Of course if he has regression in symptoms with recurrent distention he will need nasogastric tube placed. If he continues to improve without operative intervention during this hospitalization may need small bowel evaluation either with enterography or capsule endoscopy.
--- NOTE | 2024-01-16 07:48 | XR_ITS ---
FINAL REPORT CLINICAL HISTORY: NAUSEA, ABDOMINAL PAIN, FINDINGS: THREE-VIEW ABDOMEN An AP view of the the chest was obtained. The lungs are clear. Heart mediastinum are within normal limits. There is no pneumothorax. Flat and upright views of the abdomen were obtained. There is a nonspecific bowel gas pattern. There is a large amount of stool present. No abnormally dilated loops of bowel are seen. There is no free air present. No abnormal calcifications are identified. Postoperative changes are noted in the pelvis. There are degenerative changes of the lumbar spine with leftward curvature. IMPRESSION: No acute cardiopulmonary process. Nonspecific bowel gas pattern. Large amount of stool. Reviewed, Interpreted and Dictated by Adolfo Ramirez III, MD Transcribed by Sandra Javier Authenticated and [facility]
[2024-01-16 07:49] VITALS: BP 138/74; PULSE 55; RESP 16; TEMP 36.7; O2SAT 97
--- NOTE | 2024-01-16 14:22 | EXP.SURG.PN ---
Subjective Narrative: Patient's acute abdominal series revealed nonspecific bowel gas pattern with some colonic stool. He was given a clear liquid diet. He tolerated this at lunch without difficulty. No complaints. Is wondering if he will be able to go home. Exam Data for Last 24 hours Vital signs and Labs for Last 24 Hours: Temp Pulse Resp BP Pulse Ox O2 Del Method 98.1 F 55 L 16 138/74 97 Room Air 01/16/24 07:49 01/16/24 07:49 01/16/24 07:49 01/16/24 07:49 01/16/24 07:49 01/16/24 13:00 Laboratory Results - last 24 hr 01/15/24 16:02: Urine Color Yellow, Urine Appearance Clear, Urine pH 6.5, Ur Specific [place] 1.020, Urine Protein 1+, Urine Glucose (UA) Negative, Urine Ketones 1+, Urine Blood Negative, Urine Nitrate Negative, Urine Bilirubin 1+ A, Urine Urobilinogen 0.2, Ur Leukocyte Esterase Negative, Urine RBC None, Urine WBC None, Ur Squamous Epith Cells None, Urine Bacteria None 01/15/24 17:26: WBC 10.8, RBC 5.85, Hgb 17.4, Hct 54.8 H, MCV 93.6, MCH 29.8, MCHC 31.8, RDW 14.1, Plt Count 272, MPV 8.6, Neut % (Auto) 81.2 H, Lymph % (Auto) 11.0, [place] % (Auto) 5.0, Eos % (Auto) 2.0, Baso % (Auto) 0.8, Neut # (Auto) 8.8 H, Lymph # (Auto) 1.2, [place] # (Auto) 0.5, Eos # (Auto) 0.2, Baso # (Auto) 0.1, Sodium 138, Potassium 4.1, Chloride 99, Carbon Dioxide 31 H, Anion Gap 12.1, BUN 20, Creatinine 1.20, Estimated Creat Clear 79, Estimated GFR 60, Est GFR ( Amer) 73, Glucose 118 H, Calcium 10.4 H, Total Bilirubin 1.5 H, AST 36, ALT 25, Alkaline Phosphatase 88, Total Protein 8.6 H D, Albumin 5.1 H, Globulin 3.5 H, Albumin/Globulin Ratio 1.5, Lipase 25 01/16/24 05:37: WBC 7.7 D, RBC 4.82, Hgb 14.3 D, Hct 45.3, MCV 94.0, MCH 29.7, MCHC 31.6 L, RDW 14.2, Plt Count 211, MPV 8.6, Neut % (Auto) 76.1, Lymph % (Auto) 12.4, [place] % (Auto) 7.3, Eos % (Auto) 3.5, Baso % (Auto) 0.7, Neut # (Auto) 5.8, Lymph # (Auto) 1.0, [place] # (Auto) 0.6, Eos # (Auto) 0.3, Baso # (Auto) 0.1, Sodium 138, Potassium 4.1, Chloride 109 H, Carbon Dioxide 27, Anion Gap 6.1, BUN 18, Creatinine 1.10, Estimated Creat Clear 83, Estimated GFR 67, Est GFR ( Amer) 81, Glucose 100, Calcium 8.4, Magnesium 2.2, Total Bilirubin 0.4, AST 24 D, ALT 15 D, Alkaline Phosphatase 60, Total Protein 5.5 L D, Albumin 3.2 L D, Globulin 2.3, Albumin/Globulin Ratio 1.4 I & O for Last 24 hours: Intake & Output 01/14/24 01/15/24 01/16/24 01/17/24 11:59 11:59 11:59 11:59 Intake Total 1200 / 1200 Output Total 0 / 0 Balance 0 / 0 1200 / 1200 Weight 201 lb 11.2 oz *Routine Abdominal Exam Abdominal: Present soft; Absent tenderness Progress Note: A&P Assessment and plan (1) Partial obstruction of small intestine: Status: Acute Assessment and plan: I will go ahead and advance to a full liquid diet. If he tolerates this he may be able to discharge later today. I do recommend he undergo outpatient small bowel evaluation.
--- NOTE | 2024-01-16 14:55 | PC.NURSE ---
pt has had a good shift. pt started this morning with a clear liquid diet per order. pt tolerated diet well, has now been advanced to full liquid. NS @100 was d/c d/t pt now having oral intake. stated that if pt could tolerate full liquid that he may be able to go home. pt has had no complaints throughout shift. no new orders at this time.
--- NOTE | 2024-01-16 16:27 | EXP.PN ---
Subjective *Date: 01/16/24 *Time: 16:27 Interval history: seen at bedside, he mentions he is passing gas, no BMs, he normally does have BM once a week and uses dulcolax , otherwise denied Abdominal pain, chest pain Exam Data for Last 24 hours Vital signs and Labs for Last 24 Hours: Temp Pulse Resp BP Pulse Ox O2 Del Method 98.1 F 55 L 16 138/74 97 Room Air 01/16/24 07:49 01/16/24 07:49 01/16/24 07:49 01/16/24 07:49 01/16/24 07:49 01/16/24 14:54 Laboratory Results - last 24 hr 01/15/24 16:02: Urine Color Yellow, Urine Appearance Clear, Urine pH 6.5, Ur Specific [place] 1.020, Urine Protein 1+, Urine Glucose (UA) Negative, Urine Ketones 1+, Urine Blood Negative, Urine Nitrate Negative, Urine Bilirubin 1+ A, Urine Urobilinogen 0.2, Ur Leukocyte Esterase Negative, Urine RBC None, Urine WBC None, Ur Squamous Epith Cells None, Urine Bacteria None 01/15/24 17:26: WBC 10.8, RBC 5.85, Hgb 17.4, Hct 54.8 H, MCV 93.6, MCH 29.8, MCHC 31.8, RDW 14.1, Plt Count 272, MPV 8.6, Neut % (Auto) 81.2 H, Lymph % (Auto) 11.0, [place] % (Auto) 5.0, Eos % (Auto) 2.0, Baso % (Auto) 0.8, Neut # (Auto) 8.8 H, Lymph # (Auto) 1.2, [place] # (Auto) 0.5, Eos # (Auto) 0.2, Baso # (Auto) 0.1, Sodium 138, Potassium 4.1, Chloride 99, Carbon Dioxide 31 H, Anion Gap 12.1, BUN 20, Creatinine 1.20, Estimated Creat Clear 79, Estimated GFR 60, Est GFR ( Amer) 73, Glucose 118 H, Calcium 10.4 H, Total Bilirubin 1.5 H, AST 36, ALT 25, Alkaline Phosphatase 88, Total Protein 8.6 H D, Albumin 5.1 H, Globulin 3.5 H, Albumin/Globulin Ratio 1.5, Lipase 25 01/16/24 05:37: WBC 7.7 D, RBC 4.82, Hgb 14.3 D, Hct 45.3, MCV 94.0, MCH 29.7, MCHC 31.6 L, RDW 14.2, Plt Count 211, MPV 8.6, Neut % (Auto) 76.1, Lymph % (Auto) 12.4, [place] % (Auto) 7.3, Eos % (Auto) 3.5, Baso % (Auto) 0.7, Neut # (Auto) 5.8, Lymph # (Auto) 1.0, [place] # (Auto) 0.6, Eos # (Auto) 0.3, Baso # (Auto) 0.1, Sodium 138, Potassium 4.1, Chloride 109 H, Carbon Dioxide 27, Anion Gap 6.1, BUN 18, Creatinine 1.10, Estimated Creat Clear 83, Estimated GFR 67, Est GFR ( Amer) 81, Glucose 100, Calcium 8.4, Magnesium 2.2, Total Bilirubin 0.4, AST 24 D, ALT 15 D, Alkaline Phosphatase 60, Total Protein 5.5 L D, Albumin 3.2 L D, Globulin 2.3, Albumin/Globulin Ratio 1.4 I & O for Last 24 hours: Intake & Output 01/13/24 01/14/24 01/15/24 01/16/24 23:59 23:59 23:59 23:59 Intake Total 1200 / 1200 Output Total 0 / 0 Balance 1200 / 1200 Weight 95.254 kg 91.49 kg Constitutional Constitutional: no acute distress *Routine HEENT Exam Head: Present normocephalic Eye: Present EOMI and PERRL ENT: Present mucous membranes moist *Routine Neck Exam Neck: Present supple; Absent lymphadenopathy *Routine Respiratory Exam Respiratory: Present CTA bilaterally *Routine Cardiovascular Exam Cardiovascular: Present RRR *Routine Abdominal Exam Abdominal: Present soft and normoactive bowel sounds; Absent tenderness *Routine Extremities Exam Extremities: Absent cyanosis, clubbing or edema *Routine Skin Exam Skin: Present warm; Absent rash *Routine Neurological Exam Neurological: Present alert and oriented X3 Assessment and Plan *Assessment and plan (1) Partial obstruction of small intestine: Status: Acute Category: Medical Code(s): K56.600 - Partial intestinal obstruction, unspecified as to cause (2) Abnormal computed tomography of cecum and terminal ileum: Status: Acute Category: Medical Code(s): R93.3 - Abnormal findings on diagnostic imaging of other parts of digestive tract (3) HTN (hypertension): Status: Acute Qualifiers: Hypertension type: unspecified Qualified Code(s): I10 - Essential (primary) hypertension Category: Medical Code(s): I10 - Essential (primary) hypertension Plan 68-year-old male with PMHx of previous diverticulitis. BPH and hypertension who presented emergency department for evaluation of abdominal pain. Onset was acute, since yesterday evening, paroxysmal, severe, generalized across the abdomen with associated nonbloody vomiting. On arrival patient non toxic appearance. initials labs are grossly unremarkable. CT imaging shows fluid distention of majority of the distal small bowel and as well as the proximal colon with multiple areas of segmental narrowing and possible nodular enhancement of the distal ileum which could reflect an advanced enteric colitis or partial small bowel obstruction. Surgeon electronics specialist consulted. Discussed with ED. agreed for admission.Plan as follow: -Abdominal pain with N/V, associated with partial SBO Multiples nodular enhancement of the distal ileum: NPO for now consult GS, appreciate recommendations, off of NG tube for now advance diet as tolerated per GS KUB xray Continue IV hydration. Zofran as needed History of hypertension nonpharmacologic management Patient on home tamsulosin SCD for DVT prophylaxis On Protonix for GI bleed protection Full code likely DC tomorrow if able to tolerate diet
--- NOTE | 2024-01-16 17:44 | EXP.DC.SUM ---
General Admission date:: 01/15/24 Discharge date: 01/16/24 HPI HPI HPI: Patient is a 68-year-old male. His previous history of diverticulitis. He states that normally he moves his bowels about once a week or even longer. He had a preceding 9 to 10-day history of obstipation. He took a laxative. He developed acute onset of diffuse abdominal pain. He had been passing gas. Patient underwent colonoscopy with Dr. Meliton Guerrero on 11/07/2017 at which time he had left-sided diverticulosis and had 3 tubular adenomas removed from the ascending colon, sigmoid colon, and descending colon measuring in size between 5 and 8 mm.. Recommendation was for repeat colonoscopy 5 years. Evaluation in the emergency department included CT scan which revealed findings of fluid distention of the majority of the distal small bowel as well as proximal colon with focal areas of segmental narrowing and possible nodular enhancing involving the distal ileum. Findings could reflect advanced enterocolitis or partial small bowel obstruction. Intraluminal focus of nodular enhancement in the distal ileum is somewhat concerning and follow-up CT or MR enterography at conclusion of acute episode is recommended to determine persistence versus resolution. He was admitted for inpatient management. Surgical consultation was obtained. Of note, the patient had an admission in April 2020 for bowel obstruction he has prior history of open right inguinal hernia repair as a child and laparoscopic inguinal hernia repair. At that time he was managed nonoperatively for small bowel obstruction and had a small bowel follow-through revealing no evidence of any obstruction. Since admission the patient has had a bowel movement. He feels better. No nausea. Hospital Course Hospital Course Hospital Course: On the date of discharge, the patient reported feeling stable. The patient was found not to be in any acute distress, and no new abnormalities on physical examination. Further, the patient expressed appropriate understanding of, and agreement with, the discharge recommendations, medications, and plan. Time spent 37 mins patient is tolerating diet, per general surgery ok to DC see same date progress note for further details Exam Data for Last 24 hours Vital signs and Labs for Last 24 Hours: Temp Pulse Resp BP Pulse Ox O2 Del Method 98.1 F 55 L 16 138/74 97 Room Air 01/16/24 07:49 01/16/24 07:49 01/16/24 07:49 01/16/24 07:49 01/16/24 07:49 01/16/24 17:00 Laboratory Results - last 24 hr 01/15/24 16:02: Urine Color Yellow, Urine Appearance Clear, Urine pH 6.5, Ur Specific [place] 1.020, Urine Protein 1+, Urine Glucose (UA) Negative, Urine Ketones 1+, Urine Blood Negative, Urine Nitrate Negative, Urine Bilirubin 1+ A, Urine Urobilinogen 0.2, Ur Leukocyte Esterase Negative, Urine RBC None, Urine WBC None, Ur Squamous Epith Cells None, Urine Bacteria None 01/15/24 17:26: WBC 10.8, RBC 5.85, Hgb 17.4, Hct 54.8 H, MCV 93.6, MCH 29.8, MCHC 31.8, RDW 14.1, Plt Count 272, MPV 8.6, Neut % (Auto) 81.2 H, Lymph % (Auto) 11.0, [place] % (Auto) 5.0, Eos % (Auto) 2.0, Baso % (Auto) 0.8, Neut # (Auto) 8.8 H, Lymph # (Auto) 1.2, [place] # (Auto) 0.5, Eos # (Auto) 0.2, Baso # (Auto) 0.1, Sodium 138, Potassium 4.1, Chloride 99, Carbon Dioxide 31 H, Anion Gap 12.1, BUN 20, Creatinine 1.20, Estimated Creat Clear 79, Estimated GFR 60, Est GFR ( Amer) 73, Glucose 118 H, Calcium 10.4 H, Total Bilirubin 1.5 H, AST 36, ALT 25, Alkaline Phosphatase 88, Total Protein 8.6 H D, Albumin 5.1 H, Globulin 3.5 H, Albumin/Globulin Ratio 1.5, Lipase 25 01/16/24 05:37: WBC 7.7 D, RBC 4.82, Hgb 14.3 D, Hct 45.3, MCV 94.0, MCH 29.7, MCHC 31.6 L, RDW 14.2, Plt Count 211, MPV 8.6, Neut % (Auto) 76.1, Lymph % (Auto) 12.4, [place] % (Auto) 7.3, Eos % (Auto) 3.5, Baso % (Auto) 0.7, Neut # (Auto) 5.8, Lymph # (Auto) 1.0, [place] # (Auto) 0.6, Eos # (Auto) 0.3, Baso # (Auto) 0.1, Sodium 138, Potassium 4.1, Chloride 109 H, Carbon Dioxide 27, Anion Gap 6.1, BUN 18, Creatinine 1.10, Estimated Creat Clear 83, Estimated GFR 67, Est GFR ( Amer) 81, Glucose 100, Calcium 8.4, Magnesium 2.2, Total Bilirubin 0.4, AST 24 D, ALT 15 D, Alkaline Phosphatase 60, Total Protein 5.5 L D, Albumin 3.2 L D, Globulin 2.3, Albumin/Globulin Ratio 1.4 I & O for Last 24 hours: Intake & Output 01/13/24 01/14/24 01/15/24 01/16/24 23:59 23:59 23:59 23:59 Intake Total 1919 Output Total 0 / 0 Balance 1919 Weight 95.254 kg 91.49 kg Results Data Completed and Pending Labs on day of discharge: Labs from last 24 hours 01/16/24 01/15/24 01/15/24 05:37 17:26 16:02 WBC 7.7 D 10.8 RBC 4.82 5.85 Hgb 14.3 D 17.4 Hct 45.3 54.8 H MCV 94.0 93.6 MCH 29.7 29.8 MCHC 31.6 L 31.8 RDW 14.2 14.1 Plt Count 211 272 MPV 8.6 8.6 Neut % (Auto) 76.1 81.2 H Lymph % (Auto) 12.4 11.0 [place] % (Auto) 7.3 5.0 Eos % (Auto) 3.5 2.0 Baso % (Auto) 0.7 0.8 Neut # (Auto) 5.8 8.8 H Lymph # (Auto) 1.0 1.2 [place] # (Auto) 0.6 0.5 Eos # (Auto) 0.3 0.2 Baso # (Auto) 0.1 0.1 Sodium 138 138 Potassium 4.1 4.1 Chloride 109 H 99 Carbon Dioxide 27 31 H Anion Gap 6.1 12.1 BUN 18 20 Creatinine 1.10 1.20 Estimated Creat Clear 83 79 Estimated GFR 67 60 Est GFR ( Amer) 81 73 Glucose 100 118 H Calcium 8.4 10.4 H Magnesium 2.2 Total Bilirubin 0.4 1.5 H AST 24 D 36 ALT 15 D 25 Alkaline Phosphatase 60 88 Total Protein 5.5 L D 8.6 H D Albumin 3.2 L D 5.1 H Globulin 2.3 3.5 H Albumin/Globulin Ratio 1.4 1.5 Lipase 25 Urine Color Yellow Urine Appearance Clear Urine pH 6.5 Ur Specific [place] 1.020 Urine Protein 1+ Urine Glucose (UA) Negative Urine Ketones 1+ Urine Blood Negative Urine Nitrate Negative Urine Bilirubin 1+ A Urine Urobilinogen 0.2 Ur Leukocyte Esterase Negative Urine RBC None Urine WBC None Ur Squamous Epith Cells None Urine Bacteria None DS: Diagnosis Discharge Diagnosis (1) Partial obstruction of small intestine: Status: Acute Code(s): K56.600 - Partial intestinal obstruction, unspecified as to cause (2) Abnormal computed tomography of cecum and terminal ileum: Status: Acute Code(s): R93.3 - Abnormal findings on diagnostic imaging of other parts of digestive tract (3) HTN (hypertension): Status: Acute Code(s): I10 - Essential (primary) hypertension Qualifiers: Hypertension type: unspecified Qualified Code(s): I10 - Essential (primary) hypertension Meds Home Medications and Allergies Home Medications Medication Instructions Recorded Confirmed Type No Known Home Medications 01/16/24 01/16/24 History New Prescriptions to Start Prescriptions: Allergies Allergy/AdvReac Type Severity Reaction Status Date / Time No Known Allergies Allergy Verified 07/12/23 09:01 Discharge Plan Disposition Patient Disposition: Home, Self-Care Condition: Good Discharge Order Discharge Orders: Discharge Order (Routine); Ordered 01/16/24 Ordered By: Mackenzie Barth Follow up Plan Follow up with: Adolfo Segura MD [Staff Physician] - 01/31/24 1:45 pm Bandar Dela Cruz MD [Primary Care Provider] - 01/23/24 11:15 am Prescriptions/Medication Reconciliation: No Action No Known Home Medications Problem Reconciliation Problems Reviewed?: Yes Patient Discharge Instructions ACTIVITY: Ambulate as tolerated Patient Instructions: DI for Small Bowel Obstruction Providers Primary Care Provider: Bandar Dela Cruz Admit Provider: Mackenzie Barth Attending Provider: Mackenzie Barth
--- NOTE | 2024-01-17 13:55 | CARE MANAGER ---
Contacted patient related to hospital discharge. He still hasn't had bowel movement, but doesn't have any vomiting or nausea. He did take metamucil this morning. She is aware of follow up appointments and denies questions or concerns. ZEFERINO Renae
== END 2024-01-16 18:08 | disposition home or self-care (01) | DRG 390 ==
LOC: ER 20:04 → 2ND 20:06
PROVIDERS: Nurse Practitioner Family; Admitting Provider Internal Medicine; Emergency Provider Emergency Medicine; PCP Internal Medicine Adolescent Medicine; Visit Provider Internal Medicine
DX: K56.600 Partial intestinal obstruction, unspecified as to cause (principal); I10 Essential (primary) hypertension; N40.0 Benign prostatic hyperplasia without lower urinary tract symptoms
CPT/HCPCS: 36415; 74021; 74177; 80053; 81001; 83690; 83735; 85025; 99285; J0131; J2405; J7120; Q9967

== ENCOUNTER 2024-02-14 07:52 | Outpatient (CLI) | payer MEDICARE, OTHER, SELFPAY ==
--- NOTE | 2024-02-14 07:52 | FL_ITS ---
FINAL REPORT CLINICAL HISTORY: ABD PAIN 3041.15 DAP 4.17 FLUOUO TIME FINDINGS: UPPER GI WITH SBFT UPPER GI EXAM HISTORY: Abdominal pain, nausea. PROCEDURE: The patient ingested barium. Effervescent crystals were also administered. Spot and overhead films were obtained. FINDINGS: The esophagus is normal. There is no hiatal hernia. There is no gastroesophageal reflux. Peristalsis is normal. The rugal fold pattern of the stomach is normal. The duodenal bulb is normal. Fluoroscopy time: 4 minutes 17 seconds 3041.15 DAP in uGym2 IMPRESSION: Normal upper GI. SBFT: The refrigerator assembler film is normal. There is no evidence of obstruction. The mucosal fold pattern is normal. The terminal ilium is normal. IMPRESSION: Normal SBFT. Reviewed, Interpreted and Dictated by Hubert Barnes MD Transcribed by ROBBIE Martinez Authenticated and [facility]
[2024-02-14] MEDS: BARIUM SULFATE(E-Z-AC);750ML BOTTLE 750 ML PO (09:37)
[2024-02-14] MEDS: DIATRIZOATE MEGLUMINE(GASTROGRAFIN) 66%-10% 120ML 120 ML PO (09:37)
[2024-02-14] MEDS: BARIUM SULFATE (E-Z-HD 340GM);135ML BOTTLE 135 ML PO (09:37)
[2024-02-14] MEDS: E-Z-GASII EFFERVESCENT GRANULES;1PK 1 EACH PO (09:38)
== END 2024-02-14 23:59 | disposition home or self-care (01) ==
LOC: RAD 07:52
PROVIDERS: PCP Internal Medicine Adolescent Medicine; Visit Provider Surgery
DX: K56.600 Partial intestinal obstruction, unspecified as to cause (principal)
CPT/HCPCS: 74246; 74248; Q9963

== ENCOUNTER 2024-05-04 15:13 | Outpatient (CLI) | payer MEDICARE, OTHER, SELFPAY ==
--- NOTE | 2024-05-04 15:19 | CA_ITS ---
FINAL REPORT TECHNIQUE: Real-time imaging was performed of the extracranial carotid arteries in transverse and longitudinal planes, with color duplex evaluation of blood flow velocity. Spectral analysis was performed. The cervical vertebral arteries were also examined. CLINICAL HISTORY: VISUAL DISTURBANCES,DIZZINESS COMPARISON: None FINDINGS: NASCET technique is utilized for stenosis evaluation. Right carotid system (centimeters/second): CCA: 146 ICA: 122 ECA: 129 Vertebral artery: Antegrade ICA/CCA ratio: 1.03 Mild plaque is identified at the bifurcation. Left carotid system (centimeters/second): CCA: 128 ICA: 122 ECA: 127 Vertebral artery: Antegrade ICA/CCA ratio: 1.04 Mild plaque is identified at the bifurcation. IMPRESSION: Less than 50% stenosis of the carotid arteries bilaterally with mild plaque. Antegrade flow bilateral vertebral arteries. Reviewed, Interpreted and Dictated by Noble Muniz MD Transcribed by Tammy Velázquez Authenticated and [facility]
== END 2024-05-04 23:59 | disposition home or self-care (01) ==
LOC: RT 15:14
PROVIDERS: PCP Internal Medicine Adolescent Medicine; Visit Provider Internal Medicine Adolescent Medicine
DX: R42 Dizziness and giddiness (principal); R44.3 Hallucinations, unspecified
CPT/HCPCS: 93880

== ENCOUNTER 2024-06-27 13:22 | Outpatient (CLI) | payer MEDICARE, OTHER, SELFPAY ==
--- NOTE | 2024-06-27 13:52 | ECG_ITS ---
APPROVED REPORT Exam: Resting ECG HR:54 bpm ECG Measurements Heart Rate 54 AXES LA 181 P 43 QRSd 113 QRS -20 QT 420 T 35 QTc 407 Conclusion SINUS BRADYCARDIA INCOMPLETE RIGHT BUNDLE BRANCH BLOCK [90+ ms QRS DURATION, TERMINAL R IN V1/V2, 40+ ms S IN I/aVL/V4/V5/V6] BORDERLINE ECG UNCONFIRMED REPORT Electronically signed by : Bandar Dela Cruz MD 06/29/2024 10:30:04
[2024-06-27 13:59] VITALS: BMI 26.8
[2024-06-27 14:10] LABS: Basophils % 0.8 % (0.1-2.0); Eosinophils # 0.3 K/mm3 (0.0-0.4); Eosinophils % 4.3 % (0.1-12.0); Hematocrit 43.8 % (42.0-52.0); Hemoglobin 14.5 g/dL (14.1-18.0); Lymphocytes # 1.3 K/mm3 (0.7-4.5); Lymphocytes % 21.2 % (10-50); Mean Corpuscular HGB Conc 33.2 g/dL (31.8-35.4); Mean Corpuscular Hemoglobin 29.9 pg (27.0-31.2); Mean Corpuscular Volume 90.2 fl (80-94); Mean Platelet Volume 8.6 fl (7.4-10.4); Monocytes # 0.4 K/mm3 (0.1-1.0); Monocytes % 7.1 % (1.7-9.3); Neutrophils % 66.8 % (37.0-80.0); Platelet Count 207 K/mm3 (142-424); Red Blood Count 4.86 M/mm3 (4.60-6.20); Red Cell Distribution Width 14.1 % (11.5-17.5)
[2024-06-27 14:17] LABS: Blood Urea Nitrogen 22 mg/dl (9-20); Carbon Dioxide 25 mmol/L (22.0-30.0); Chloride 106 mmol/L (98-107); Creatinine Clearance Estimated 90 mL/min (50-200); Estimated Glomerular Filt Rate 74 ml/min (>60); GFR (African American) 90 ML/MIN (>60); Glucose 107 mg/dl (74-100); Sodium 138 mmol/L (136-145)
== END 2024-06-27 23:59 | disposition home or self-care (01) ==
LOC: PREOP 13:25
PROVIDERS: PCP Internal Medicine Adolescent Medicine; Visit Provider Surgery
DX: K40.20 Bilateral inguinal hernia, without obstruction or gangrene, not specified as recurrent (principal); I45.19 Other right bundle-branch block; R00.1 Bradycardia, unspecified; R94.31 Abnormal electrocardiogram [ECG] [EKG]
CPT/HCPCS: 80048; 85025; 93005

== ENCOUNTER 2024-06-28 13:48 | Outpatient (CLI) | payer MEDICARE, OTHER, SELFPAY ==
--- NOTE | 2024-06-28 13:51 | CA_ITS ---
APPROVED REPORT EXAM: Comprehensive 2D, Doppler, and color-flow Echocardiogram Stamp Clerk: Anila Day, RCS, RVS Ht: 5 ft 11 in Wt: 204lbs BSA: 2.13 BP: 138/76 mmHg Indications: Pre-op clearance, ABN EKG, HTN, Palpitations, SOA 2D Dimensions Aortic Root 3.47 cm LA Volume 59.90 mL Left Atrium 3.35 cm LA Volume Index 28.008247 mL/m2 (M/F) 16-34 RVID Base (AP4) 3.93 cm (M/F) 2.5-4.1 EF AP4 63.90 % LVOT 2.06 cm (M/F) 1.5-2.5 GL Strain -23.1 % M-Mode Dimensions RVDd 3.38 cm (0.9-2.6) LVDd 5.17 cm (3.5-5.7) Ao Diam 3.39 cm (2.0-3.7) LVDs 2.70 cm (3.5-5.7) IVSd 1.03 cm (0.6-1.1) PWd 0.99 cm (0.6-1.1) EF (Teich) 78.90% EPSs 0.30 cm FS 47.80% EDV (Teich) 127.80 mL TAPSE 3.07 (<1.7) ESV (Teich) 27.00 mL LV Diastology E Decel Time 233 (160-240 msec) E/A Ratio 1.09 MED E' 7.0 (>= 7 cm/sec) MED A' 11.70 cm/s E'/MED E' Ratio 13.87 (<= 14) LAT E' 13.4 (>= 10 cm/sec) LAT A' 15.10 cm/s E/LAT E' Ratio 7.25 (<= 14) Aortic Valve LVOT Max 131.0 (70-110 cm/s) SAM Index 1.38 cm2/m2 LVOT VTI 25.63 cm AoV Peak Jeremy. 139.0 (50-130 cm/s) AO Mean GR. 3.80 (<5 mmHg) AO VTI 29.1 (18-25 cm) SAM (VTI) 2.93 (2.5-4.5 cm2) Mitral Valve MV E Max Jeremy. 97.0 (40-130 cm/s) MV A Velocity 89.0 (40-130 cm/s) E/A Ratio 1.09 MV Decel. Time 233 (160-240 ms) MV PHT 64.0 ms Pulmonary Valve AL End VMAX 130.0 cm/s Tricuspid Valve TR P. Velocity 199.00 cm/s RAP Estimate 10.00 mmHg RVSP 25.80 mmHg Left Ventricle The left ventricle is normal size. The left ventricular systolic function is normal. The left ventricular ejection fraction is within the normal range. There is increased LV wall thickness. There is normal LV segmental wall motion. The left ventricular diastolic function is normal. LVEF is 55%. Right Ventricle Right ventricle is mildly dilated. The right ventricular systolic function is normal. Atria The left atrium size is normal. The right atrium size is normal. There is no Doppler evidence of interatrial shunt. Aortic Valve The aortic valve is mildly thickened. There is no aortic valvular stenosis. No aortic regurgitation is present. Mitral Valve The mitral valve is normal in structure. No evidence of mitral valve stenosis. Trace mitral regurgitation. Tricuspid Valve The tricuspid valve leaflets are thin and pliable. Mild tricuspid regurgitation. RVSP is 15-20 mmHg. Pulmonic Valve The pulmonary valve is normal in structure. Trace pulmonic regurgitation. Great Vessels The aortic root is normal in size. IVC is normal in size and collapses >50% with inspiration. Pericardium There is no pericardial effusion. Other Information Study Quality: Fair Conclusion Normal LV systolic function. Mild RV dilation with normal RV function. Mild TR. Electronically signed by : Dilma Shah MD 06/28/2024 15:34:46
== END 2024-06-28 23:59 | disposition home or self-care (01) ==
LOC: RT 13:48
PROVIDERS: PCP Internal Medicine Adolescent Medicine; Visit Provider Physician Assistant
DX: I36.1 Nonrheumatic tricuspid (valve) insufficiency (principal); R94.31 Abnormal electrocardiogram [ECG] [EKG]
CPT/HCPCS: 93306

== ENCOUNTER 2024-07-02 10:06 | Day surgery (SDC) | payer MEDICARE, OTHER, SELFPAY ==
[2024-06-27 13:56] VITALS: BMI 26.8
--- NOTE | 2024-06-28 09:17 | SUR.PREOP ---
Upon review of EKG w/ Ariadna Felix CRNA determined pt needs cardiology evaluation. Spoke w/ Cardiology office, states they will work in pt today. Called Pt, notified him of POC, verbalized understanding.
[2024-07-02] VITALS (13 sets, daily range): BP systolic 125–181; BP diastolic 70–90; PULSE 56–90; RESP 16–18; TEMP 36.1–36.7; O2SAT 93–99
--- NOTE | 2024-07-02 10:45 | EXP.ANES.CKL ---
[facility] Disclaimer: The information contained in this section may have been updated after the patient was seen, as this information can be updated by other users. Medical History Arrhythmia Surgical History H/O shoulder surgery Family History Other Family history of cancer Family history of heart disease Social History Smoking Status: Never smoker alcohol intake: never substance use type: denies use current occupational status: employed Travel in the last 8 weeks: None household members: spouse housing: house current occupational exposures/hazards: No caffeine: No H Anesthesia Checklist Patient Identification Patient Identification: Arm Band and Verbal (Name & ) Structural Data Admitted From: Home Planned Operative Procedure/s: Open Left inguinal hernia repair Consent for Planned Operative Procedure(s) Verified: Yes Verified Documents: Surgical Consent, History and Physical and Cardiac Clearance NPO Status Verified Time NPO: 00:00 Chart Verification Results Verified: CBC, BMP and ECG Additional verifications Anesthesia Reactions: No Hx Blood Transfusions: No Blood Transfusion Reaction: No Airway Assessment Mallampati Score:: Class I C-Spine Mobility Assessed: Yes TMJ Mobility Assessed: Yes Dentition: Good Dentition Neurological Assessment Level of Consciousness: Awake Hx Seizures: No Numbness or tingling in extremities: No Anesthesia Plan Anesthesia Risk discussed: Yes Anesthesia Plan: Verified ASA Class: II Anesthesia Type: General
[2024-07-02] MEDS: CEFAZOLIN SODIUM 2 GM in 0.9 % SODIUM CHLORIDE 100 ML IV (11:35)
[2024-07-02] MEDS: ROPIVACAINE 0.5% 30ML VIAL 150 MG (11:53)
[2024-07-02] MEDS: LIDOCAINE 1% 20ML MDV 20 ML (11:53)
--- NOTE | 2024-07-02 13:50 | EXP.OP.NOTE ---
Date of procedure: 07/02/24 Pre-op Diagnosis:: Left inguinal hernia Post-op Diagnosis:: Same Procedure performed:: Open repair of left inguinal hernia with placement of large sized Bard prefix mesh plug with onlay mesh Surgeon:: Adolfo Segura MD FRONT END SOFTWARE ENGINEER:: Maria Esther Villagomez Anesthesia: GETA Estimated blood loss (mL): 15 Clinical Note:: Patient presents for open left inguinal hernia repair. He was recently seen in the office for follow-up regarding significant symptomatology in his left inguinal hernia. Patient is a pleasant 68-year-old male whom I had seen in the past for bowel obstruction. He had previously undergone open right inguinal hernia when he was a child approximately age 10 or 12. He had developed a recurrence and I performed laparoscopic repair of recurrent right inguinal hernia on 12/15/2004. He has had some symptomatology in the right inguinal area potentially consistent with recurrent right inguinal hernia. However, on 05/11/2024 he had developed left leg numbness. He noticed a knot. He contacted the office. It was advised if he was unable to reduce this that he should present to the emergency department. Patient states that he had worked on the area for about 30 minutes and was able to reduce it with symptomatic relief. He was seen in the office on 05/17/2024 at which time he was found to have evidence likely of recurrent indirect hernia on the right and indirect hernia on the left. I discussed the options with him and discussed the possibility of referral to [facility] for consideration of transabdominal laparoscopic approach. Apparently the patient had elected to consider referral to [facility]. His appointment was scheduled for late July. However, recently he developed recurrent significant symptoms in the left inguinal area. He is currently being treated for epididymitis by his primary care provider. He states that he did have quite severe pain and discomfort in the left inguinal area and actually wished to proceed with open left inguinal hernia repair. He has had some symptomatology but less significant with the right inguinal hernia and does not wish to undergo repair of this at this time. Plan was to proceed with open left inguinal hernia repair. . Operative findings:: He had evidence of a complex indirect hernia. There were some branching vessels near Javier's ligament. He had a rather thick and somewhat fatty cord. External oblique muscle had some unusual orientation of some of the muscle fibers creating somewhat of the weave like configuration. Operative note:: Consent was obtained patient was taken to the operating room. He was positioned in a supine position. General anesthesia was induced via endotracheal tube. Vega catheter was placed. Abdomen and perineum were prepped and draped in the standard surgical fashion. Oblique incision was made and the left inguinal area superior to landmarks identifying the inguinal ligament. Dissection was carried down through subcutaneous tissues and Carlos's fascia using electrocautery. External oblique muscle was cleaned free and exposed. Interestingly there were some muscle fibers oriented in the external oblique muscle creating somewhat of the we have like configuration. External oblique muscle was opened along the length of its fibers exposing the underlying cord structures. Ilioinguinal nerve was identified and preserved. Cord structures were dissected free from the floor the inguinal canal and encircled with a Roberts drain. The cord was rather thickened and somewhat fatty. Careful dissection was carried out to determine if there was any herniated contents along the cord and none was clearly identified. There was some branching vessels medially which made delineation and determination of anatomy somewhat difficult. There was some herniated fatty tissues medially and evidence of a hernia sac with a indirect defect. Hernia sac was temporarily open. However decision was made to not resect the hernia sac and therefore was closed with a 2-0 Vicryl. Herniated tissues were reduced. A large size Bard prefix mesh plug was inserted into the defect the lateral to the cord structures. It was sutured to the shelving edge of the inguinal ligament and to the transversalis muscle with several interrupted 2-0 PDS sutures. The onlay mesh was then secured in position suturing it to Javier's ligament and along the shelving edge of the inguinal ligament with a running 2-0 PDS suture. It was sutured superiorly medially to transversalis muscle fascia using interrupted 2-0 PDS horizontal mattress sutures and some simple interrupted 2-0 PDS suture the 2 leaves of the mesh were used to encircle the cord structures and sutured to 1 another with several interrupted 2-0 PDS Cord structures and ilioinguinal nerve were returned to the normal anatomic position. Local anesthetic was infiltrated into the deep tissues as well as for an inguinal nerve block. External oblique muscle was closed over the cord structures with running 2-0 Vicryl. Carlos's fascia was closed with a running 2-0 Vicryl. Skin was closed with 4-0 Monocryl in a running subcuticular fashion. Dermabond and dressings were applied. Please note that the patient had some hematuria within the Vega catheter at the completion of the procedure. Nursing stated that there was no issues or concerns with Vega catheter placement. Plan was made for attempted removal. Vega catheter was removed at the completion of the procedure. Condition: stable Disposition: PACU Complications:: None immediately apparent
--- NOTE | 2024-07-02 13:56 | EXP.ANES.I ---
[facility] Anesthesia Record Part I Anesthesia Record I Intake, IV Amount: 700 Hydration: Adequate Estimated blood loss (mL): 10 Urine output (mL): 200 Blood Products used (#): none Blood Pressure: 130/74 SaO2: 97 Pulse Rate: 59 Airway Patency: Patent Respiratory Rate: 16 Temperature: 97.0 F Patient is:: Drowsy, Oral/Nasal airway (10.[address] upon arrival to PACU. Removed @13:55) and Stable Stable to PACU at:: 13:55
--- NOTE | 2024-07-02 14:12 | SUR.OPER ---
1342- hematuria noted in menendez bag. ordered the menendez to be D/C'd. Catheter tip intact, blood clots noted in the coude tip. ordered the pt to urinate before DC. panfilo Daly gave report to panfilo geiger in pacu and notified her that pt needed to urinate before DC.
--- NOTE | 2024-07-02 16:32 | SUR.PHASEII ---
1450: Pt arrived to bay. Per report from Daisha MCGARRY, pt has possible corneal abrasion. Pt's only complaint is pain rated a 6-7 in left eye. 1455: Cathryn Villagomez CRNA and Dell Garzon CRNA at bedside assessing pt condition. See new orders. Eye kit retrieved per Magy Jackson RN from ER. 1542: Kemal Pollock PAC and Dell Garzon CRNA at bedside. Tetracaine eye drops and Emycin ointment applied from Eye kit per Kemal Pollock PAC. 1545: Pt urinated 100ml of dark urine. Pt reports decrease in pain from 6-7 to 4 and tolerable.
--- NOTE | 2024-07-03 12:03 | P.PNANES_ITS ---
[facility] Anesthesia Record Part II Anesthesia Record Part II Discharge Time: 14:40 Destination: Medical Surgical Department PACU nurse assessment reviewed?: Yes Patient Condition:: Good Anesthesia Complications:: None Swallowing reflex intact?: Yes Airway Patency: Patent Cyanosis?: No Blood Pressure: 153/84 SaO2: 97 Respiratory Rate: 18 Pulse Rate: 64 Temperature: 98.0 F Mental Status: Alert & Oriented Pain level:: 0 Nausea and/or vomitting:: None Intake, IV Amount: 700 Hydration: Adequate
[2024-07-03 12:04] VITALS: BP 153/84; PULSE 64; RESP 18; TEMP 36.7; O2SAT 97
== END 2024-07-02 16:10 | disposition home or self-care (01) ==
PROVIDERS: PCP Internal Medicine Adolescent Medicine; Visit Provider Surgery
PROC: (CPT 49505; principal; 2024-07-02 11:30)
DX: K40.90 Unilateral inguinal hernia, without obstruction or gangrene, not specified as recurrent (principal)
CPT/HCPCS: 49505; 96374; J0690; J1100; J1885; J2250; J2405; J3010

== ENCOUNTER 2024-07-26 10:24 | Outpatient (CLI) | payer MEDICARE, OTHER, SELFPAY ==
[2024-07-26 10:50] LABS: Basophils # 0.1 K/mm3 (0-0.2); Basophils % 0.9 % (0.1-2.0); Eosinophils # 0.2 K/mm3 (0.0-0.4); Eosinophils % 3.4 % (0.1-12.0); Hematocrit 42.1 % (42.0-52.0); Hemoglobin 13.8 g/dL (14.1-18.0); Lymphocytes # 1.1 K/mm3 (0.7-4.5); Lymphocytes % 18.4 % (10-50); Mean Corpuscular HGB Conc 32.8 g/dL (31.8-35.4); Mean Corpuscular Hemoglobin 29.8 pg (27.0-31.2); Mean Corpuscular Volume 90.9 fl (80-94); Mean Platelet Volume 8.1 fl (7.4-10.4); Monocytes # 0.4 K/mm3 (0.1-1.0); Neutrophils % 70.2 % (37.0-80.0); Platelet Count 251 K/mm3 (142-424); Red Blood Count 4.63 M/mm3 (4.60-6.20); Red Cell Distribution Width 13.8 % (11.5-17.5); White Blood Count 5.8 K/mm3 (4.8-10.8)
== END 2024-07-26 23:59 | disposition home or self-care (01) ==
LOC: LAB 10:26
PROVIDERS: PCP Internal Medicine Adolescent Medicine; Visit Provider Surgery
DX: K43.2 Incisional hernia without obstruction or gangrene (principal)
CPT/HCPCS: 36415; 85025

== ENCOUNTER 2024-11-15 09:27 | Outpatient (CLI) | payer MEDICARE, OTHER, SELFPAY ==
[2024-11-15 10:30] LABS: Blood Urea Nitrogen 24 mg/dl (9-20); Estimated Glomerular Filt Rate 55 ml/min (>60); GFR (African American) 66 ML/MIN (>60)
== END 2024-11-15 23:59 | disposition home or self-care (01) ==
LOC: LAB 09:30
PROVIDERS: PCP Internal Medicine Adolescent Medicine; Visit Provider Surgery
DX: K40.20 Bilateral inguinal hernia, without obstruction or gangrene, not specified as recurrent (principal)
CPT/HCPCS: 36415; 82565; 84520

== ENCOUNTER 2024-11-28 08:45 | Outpatient (CLI) | payer MEDICARE, OTHER, SELFPAY ==
--- NOTE | 2024-11-28 08:45 | CT_ITS ---
FINAL REPORT TECHNIQUE: Axial images through the pelvis were performed by computed tomography after the administration of IV contrast. Sagittal and coronal reconstruction images were performed. This study was performed with techniques to keep radiation doses as low as reasonably achievable (ALARA). Individualized dose reduction techniques using automated exposure control or adjustment of mA and/or kV according to the patient's size were employed. CLINICAL HISTORY: Pain and swelling since hernia repair sx was june 2024 pain and swelling to the left hemiscrotum area COMPARISON: 01/15/2024 FINDINGS: The appendix is normal. There is no acute abnormality of the GI tract. The prostate is very large. Mild wall thickening of the urinary bladder is likely related to chronic outlet obstruction. There is no pelvic lymphadenopathy or free fluid. There are postoperative changes from bilateral inguinal hernia repair. No recurrent hernia is identified. There is a large left and small to moderate right hydrocele. There is no acute osseous abnormality. IMPRESSION: Large greater than right hydroceles which could account for left scrotal enlargement. Very large prostate enlargement with chronic outlet obstruction. Reviewed, Interpreted and Dictated by Anitha Covington MD Transcribed by Alyson Garcia Authenticated and [facility]
[2024-11-28] MEDS: SODIUM CHLORIDE 0.9% 10ML SYR (RAD ONLY) 10 ML IV (09:03)
[2024-11-28] MEDS: IOPAMIDOL-370 (76%);100ML BOTTLE 75 ML IV (09:03)
== END 2024-11-28 23:59 | disposition home or self-care (01) ==
LOC: RAD 08:46
PROVIDERS: PCP Internal Medicine Adolescent Medicine; Visit Provider Surgery
DX: K40.90 Unilateral inguinal hernia, without obstruction or gangrene, not specified as recurrent (principal); Z98.890 Other specified postprocedural states; R52 Pain, unspecified
CPT/HCPCS: 72193; Q9967

== ENCOUNTER 2024-12-26 15:06 | Outpatient (CLI) | payer MEDICARE, OTHER, SELFPAY ==
--- OUTSIDE RECORDS SUMMARY | 2024-12-26 15:08 | XMS_ITS | Data Portability ---
Author Organization [place] [facility], [facility] Address [address] [place] [address] Assessment Encounter Date Assessment Date Assessment LastModified by Organization Details LastModified Time 10/19/2023 10/19/2023 This patient had a left Sural nerve block done today. We will follow-up with this patient in Our [place] office. If He does not get significant relief he may benefit from a lumbar pleural steroid injection or he may need surgical intervention based off his MRI. We did review his MRI of his left foot today. 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 There is also tear of the peroneus brevis at the lateral malleolus. abux Not available 10/19/2023 22:53:18 Plan of Treatment Reminders Order Date Submit Date Provider Last Modified By Organization Details Last Modified Time Details Appointments None record ed. Lab None record ed. Referral None record ed. Procedures None record ed. Surgeries None record ed. Imaging None record ed. Medication Orders None record ed. Patient TargetsNo targets recorded. Patient InstructionsNo instructions recorded. Reason for Referral None Reported. Problems Name Problem SNOMED Code Status Onset Date Resolution Date Notes Provider Name and Address Organization Details Recorded Time Pain of left ankle joint 7749817088634 9103 Active 2023 Isidro Alcala MD [address], [address], [place] [facility] 22:53:47 Sural neuropathy 330375271 Active 2023 Isidro Alcala MD [address], [address], [place] [facility] 22:53:49 Problem Notes None recorded. Procedures Surgical History Date Name Laterality Status Provider Name and Address Organization Details Recorded Time Sural nerve block completed Isidro Alcala MD [address] [address], [place], [address], [place] [facility] 10/19/2023 22:50:11 operative procedure on knee completed JESS CERON [place] - [facility] 10/10/2023 07:42:48 Shoulder Surgery completed JESS HERNANDEZ - [facility] 10/10/2023 07:42:58 Imaging Results None recorded. Procedure Notes None recorded. Medical Equipment None Reported. Allergies No known drug allergies Medications Name Sig Start Date Stop Date Status Note LastModified by Organization Details LastModified Time amlodipine 5 mg tablet Take 1 tablet every day by oral route. active Not Available Not Available No t Available meloxicam 7.5 mg tablet Take 1 tablet every day by oral route. active Not Available Not Available No t Available tamsulosin 0.4 mg capsule Take 1 capsule every day by oral route. active Not Available Not Available No t Available ondansetron 4 mg disintegrati ng tablet Place 2 tablets twice a day by translingua l route. active Not Available Not Available No t Available sod picosulf 10 mg-magnes 3.5 gram-citric 12 gram/160 mL oral solution Take by oral route. active Not Available Not Available Not Available Vitals Date Recorded Pain severity - 0-10 verbal numeric rating [Score] - Reported Body height Body mass index (BMI) Body weight Oxygen saturation Oxygen saturation in Arterial blood by Pulse oximetry Heart rate Systolic blood pressure Diastolic blood pressure Provider Name and Address Organization Details Last Updated DateTime 4 4 180.34 cm 30 kg/m2 88740.3 6 g 98 % 98 % 68 /min 148 mm[Hg] 98 mm[Hg] JESS HERNANDEZ - [facility] 15:34:53 Social History Question Answer Notes LastModified by Organizat ion Details LastModified Time Tobacco Smoking Status Never Smoker JESS [place], [place] - [facility] 10/10/2023 07:42:20 In The 14 Days Before Symptom Onset, Have You Had Close Contact With A Laboratory-confirm ed COVID-19 While That Case Was Ill? No [email or web address] Information n ot available 10/10/2023 In The 14 Days Before Symptom Onset, Have You Had Close Contact With A Person Who Is Under Investigation For COVID-19 While That Person Was Ill? No [email or web address] Information not available 10/10/2023 Have You Been To An Area Known To Be High Risk For COVID-19? No [email or web address] Information not available 10/10/2023 Sex: Unknown Functional Status Question Answer Note LastModified by Organizat ion Details LastModified Time Do you use any illicit or recreational drugs? No [email or web address] Information not available 10/10/2023 Do you or have you ever used any other forms of tobacco or nicotine? No [email or web address] Information not available 10/10/2023 What is your level of alcohol consumption? None [email or web address] Information not available 10/10/2023 Mental Status None recorded. Family History Nothing Reported. Medical History Condition Response Coronary Artery Disease N Gout N Head Trauma/Injury N Hernia N Thyroid Problems N Depression N COPD N Anemia N Ulcers N Heart Attack ([place]) N Diabetes N Anxiety Disorder N Bleeding Disorder N Arthritis Y Tuberculosis N AIDS/HIV N Acid Reflux (GERD) N Cancer N Stroke N Asthma N Substance Abuse N Back Injury N High Cholesterol N Hepatitis N Liver Disease N Heart Disease N Headaches N Fibromyalgia N Hypertension Y Osteoporosis N Kidney Disease N Past Encounters Encounter ID Performer Location Encounter Start Date Encounter Closed Date Diagnosis/Indication Diagnosis SNOMED-CT Code Diagnosis ICD10 Code Diagnosis Note [id number] Isidro Alcala MD [address] B[address]ER [address] [place] [phone] 10/19/2023 14:29:23 10/19/2023 16:55:56 Ankle pain 438903541 M25.579 Sural neuropathy 3676612 00 G57.82 Pain of le ft ankle joint 6377062594 9563665 M25.572 Health Concerns Section Related Observation LastModified by Organization Dettristin ls LastModified Time None Recorded Concern Status LastModified by Organization Details LastModified Time None Recorded Advance Directives Directive None Recorded Payers Encounter Date Sequence Insurance Name Policy Number Policy Max Covered Member ID Max Member ID Guarantor Name 10/19/2023 1 MEDICARE-[place] ([place]ICARE[place] Rayshawn Palomino [id number] 4 Rayshawn Palomino Notes Date Note Type Note Provider Name and Address Organization Details Recorded Time 10/19/2023 text/html AnkleReported bypatient.Location: left Quality:throbbing; sharp Severity:mild; pain level 4/10; worsening Timing:constant Duration:6 months Context:[place] Aggravating Factors:walking; lifting; carrying; twisting; bending/squatting; pushing/pulling; weightbearing; exercise; getting out of bed; going from sit to stand; upstairs; downstairs Alleviating Factors:heat; Hot tub and pain medication Associated Symptoms:no weakness; no numbness; no tingling; no redness; no warmth; no ecchymosis; no catching/locking; no popping/clicking; no buckling; no grinding; no radiation down leg; no drainage; no fever; no chills; no weight loss; no change in bowel/bladder habits; no pain with motion;instability; tender to touch Previous Surgery:none Prior Imaging:MRI Previous Injections:none Previous PT:none Working:regular duty Work Related:no Isidro Alcala MD [address], [address], [place] - [facility] 10/19/2023 22:55:08
== END 2024-12-26 23:59 | disposition home or self-care (01) ==
LOC: RT 15:07
PROVIDERS: PCP Nurse Practitioner Family; Visit Provider Nurse Practitioner Family
DX: I49.1 Atrial premature depolarization (principal); R55 Syncope and collapse
CPT/HCPCS: 93225; 93226

== ENCOUNTER 2025-01-01 12:23 | Outpatient (CLI) | payer MEDICARE, OTHER, SELFPAY ==
--- NOTE | 2025-01-01 | CA_ITS ---
APPROVED REPORT Exam: Exercise Treadmill Technologist: Maggie Whittaker Ht: 6 ft 0 in Wt: 217 lbs BSA: 2.21 m2 HR: 49 bpm BP: 166/78 mmHg Stress Test Details Test: Exercise stress testing was performed using a Farshad protocol. HR Resting HR: 49 bpm Max Heart Rate (APMHR): 151 bpm Max HR Achieved: 125 bpm Target HR (85% APMHR): 128 bpm % of APMHR: 83 Recovery HR: 82 bpm HR response to stress: Blunted HR response to stress BP Resting BP: 166.0/78.0 mmHg Max BP: 186.0/90.0 mmHg Recovery BP: 163.0/74.0 mmHg BP response to stress: Normal blood pressure response to stress. ECG Resting ECG: Sinus bradycardia Stress EC.[address] depression Clinical Exercise duration: 8.28 min Exercise capacity: 10.3 METs Stress ECG Conclusion Symptoms: Leg cramping, chest tightness, dyspnea Arrhythmias/Ectiopy: PVC ST-T Changes: 0.[address] depression Conclusion: Average exercise capacity. No evidence of ischemia at peak stress on ECG. Myoview images are reported separately. Electronically signed by : Dilma Shah MD 01/02/2025 13:25:10
--- NOTE | 2025-01-01 12:25 | NM_ITS ---
APPROVED REPORT Exam: Nuclear Stress Test Indication: chest pain..fatigue Patient Location: Outpatient Stress Tech: Maggie Whittaker DC Tech:KEVIN Jimenez, RT (R)(N) Ht: 6 ft 0 in Wt: 217 lbs HR: 47 bpm BP: 166/78 mmHg BSA: 2.21 m2 TID: 1.10 History: cp..fatigue Procedure: Patient exercised on Farshad protocol 8:28 minutes and sec, resting heart rate 47 bpm, resting blood pressure 166/78 mmHg, with exercise maximum heart rate achived was 125 bpm which is 85 % of the maximum predicted heart rate and blood pressure was 186/90 mmHg. Patient denied any complaint of chest pain. Patient has average exercise capacity, achieved 10.3 METs of workload on treadmill, the blood pressure response to exercise was normal . Cardiac Stress and Resting SPECT Images: Cardiac Stress and Resting SPECT images were obtained using technetium 99m Myoview 31.4 mCi stress and 10.59 mCi at rest. Technically difficult study due to significant soft tissue overlap with the cardiac borders. This may affect the diagnostic interpretation of the study findings. Resting and stress imaging in supine and prone positions demonstrate no evidence of fixed or reversible perfusion defects. Gated imaging demonstrates normal global and regional LV systolic function. LVEF is calculated at 58%. Conclusion: Technically difficult study. No evidence of fixed or reversible perfusion defects. Gated imaging demonstrates normal global and regional LV systolic function. LVEF is calculated at 58%. Electronically signed by : Dilma Shah MD 01/02/2025 13:14:07
--- OUTSIDE RECORDS SUMMARY | 2025-01-01 12:25 | XMS_ITS | Data Portability ---
Author Organization [place] [facility], [facility] Address [address] [place] [address] Assessment Encounter Date Assessment Date Assessment LastModified by Organization Details LastModified Time 10/19/2023 10/19/2023 This patient had a left Sural nerve block done today. We will follow-up with this patient in Our [place] office. If He does not get significant [...] Recorded Time Pain of left ankle joint 3132031043135 9103 Active 2023 Isidro Alcala MD [address], [address], [place] [facility] 22:53:47 Sural neuropathy 366788642 Active 2023 Isidro Alcala MD [address], [address], [place] [facility] 22:53:49 Problem Notes None recorded. Procedures Surgical History Date Name Laterality Status Provider Name and Address Organization Details Recorded Time 4 Sural nerve block completed Isidro Alcala MD [address] [facility] [address], [place], [address], [place] [facility] 10/19/2023 22:50:11 [...] Not Available Not Available Vitals Date Recorded Body height Body mass index (BMI) Body weight Oxygen saturation Oxygen saturation in Arterial blood by Pulse oximetry Heart rate Systolic blood pressure Diastolic blood pressure Provider Name and Address Organization Details Last Updated DateTime 4 180.34 cm 30 kg/m2 28031.3 6 g 98 % 98 % 68 [...] COVID-19 While That Case Was Ill? No [email or web address] Information n ot available 10/10/2023 In The 14 Days Before Symptom Onset, Have You Had Close Contact With A Person Who Is Under Investigation For COVID-19 While That Person Was Ill? No [email or web address] Information not available 10/10/2023 Have You Been To An Area Known To Be High Risk For COVID-19? No [email or web address] Information not available 10/10/2023 Sex: Unknown Functional Status Question Answer Note LastModified by Organizat ion Details LastModified Time Do you use any illicit or recreational drugs? No [email or web address] Information not available 10/10/2023 Do you or have you ever used any other forms of tobacco or nicotine? No [email or web address] Information not available 10/10/2023 What is your level of alcohol consumption? None [email or web address] Information not available 10/10/2023 Mental Status None recorded. Family History Nothing Reported. Medical History Condition Response Coronary Artery Disease N Gout N Head Trauma/Injury N Hernia N Thyroid Problems N Depression N COPD N Anemia N Ulcers N Heart Attack ([place]) N Diabetes N Anxiety Disorder N Bleeding [...] SNOMED-CT Code Diagnosis ICD10 Code Diagnosis Note [id number] Isidro Alcala MD [address] [place] [phone] 10/19/2023 14:29:23 10/19/2023 16:55:56 Ankle pain 177887875 M25.579 Sural neuropathy 8200333 00 G57.82 Pain of le ft ankle joint 2220470981 9384615 M25.572 Health Concerns Section Related Observation LastModified by Organization Detai ls LastModified Time None Recorded Concern Status LastModified by Organization Details LastModified Time None Recorded Advance Directives Directive None Recorded Payers Encounter Date Sequence Insurance Name Policy Number Policy Max Covered Member ID Max Member ID Guarantor Name 10/19/2023 1 [place] Rayshawn Palomino [id number] Rayshawn Palomino Notes Date Note Type Note Provider Name and Address Organization Details Recorded Time 10/19/2023 text/html AnkleReported bypatient.Location: left Quality:throbbing; sharp Severity:mild; pain level 4/10; worsening Timing:constant Duration:6 months Context:[place] Aggravating Factors:walking; lifting; carrying; twisting; bending/squatting; [...] Work Related:no Isidro Alcala MD [address], [address], [place] - [facility] 10/19/2023 22:55:08
[2025-01-01] MEDS: SODIUM CHLORIDE 0.9% 10ML SYR (RAD ONLY) 10 ML IV ×2 (14:16)
[2025-01-01] MEDS: ISOTOPE MYOVIEW (PER STUDY) 1 DOSE IV (14:16)
[2025-01-01 15:47] LABS: Basophils % 0.6 % (0.1-2.0); Eosinophils # 0.2 Kmm3 (0.0-0.4); Eosinophils % 3.1 % (0.1-12.0); Hematocrit 45.6 % (42.0-52.0); Hemoglobin 14.6 g/dL (14.1-18.0); Immature Granulocytes # 0.02 10^3uL; Immature Granulocytes % 0.3 %; Lymphocytes % 15.5 % (10-50); Mean Corpuscular Hemoglobin 28.5 pg (27.0-31.2); Mean Corpuscular Volume 89.1 fl (80-94); Mean Platelet Volume 11.1 fl (7.4-10.4); Monocytes # 0.6 K/mm3 (0.1-1.0); Monocytes % 8.6 % (1.7-9.3); Neutrophils # 4.6 K/mm3 (1.8-7.8); Neutrophils % 71.9 % (37.0-80.0); Nucleated Red Blood Cells # 0 10^3/uL; Nucleated Red Blood Cells % 0 %; Platelet Count 196 K/mm3 (142-424); Red Blood Count 5.12 M/mm3 (4.60-6.20); Red Cell Distribution Width 13.4 % (11.5-17.5); Red Cell Distribution Width-SD 43.8 fL; White Blood Count 6.4 K/mm3 (4.8-10.8)
[2025-01-01 16:17] LABS: Alanine Aminotransferase 18 U/L (12-78); Albumin Level 4.7 g/dl (3.5-5.0); Albumin/Globulin Ratio 2.1 (1.1-1.8); Alkaline Phosphatase 62 U/L (38-126); Anion Gap 9.7 mEq/L (5-15); Aspartate Amino Transferase 25 U/L (17-59); Bilirubin,Total 1.1 mg/dl (0.2-1.3); Blood Urea Nitrogen 20 mg/dl (9-20); Calcium 9.7 mg/dl (8.4-10.2); Carbon Dioxide 28 mmol/L (22.0-30.0); Chloride 103 mmol/L (98-107); Cholesterol 192 mg/dl (140-200); Estimated Glomerular Filt Rate 74 ml/min (>60); GFR (African American) 90 ML/MIN (>60); Globulin 2.2 g/dL (1.3-3.2); Glucose 91 mg/dl (74-100); HDL Cholesterol 65 mg/dl (40-60); Magnesium 1.9 mg/dl (1.6-2.3); Potassium 4.7 mmoL/L (3.5-5.1); Sodium 136 mmol/L (136-145); Total Protein,Serum 6.9 g/dl (6.3-8.2); Triglycerides 67 mg/dl (30-150); VLDL Cholesterol 13 mg/dL (0-40)
[2025-01-01 16:29] LABS: Direct LDL Cholesterol 114.01 mg/dL (100-129)
[2025-01-01 16:48] LABS: Prostate Specific Ag Screen 4.3 ng/ml (0.0-4.0); Thyroid Stimulating Hormone 2.66 uIU/mL (0.465-4.68)
[2025-01-01 17:07] LABS: Vitamin B12 314 pg/mL (239-931)
== END 2025-01-01 23:59 | disposition home or self-care (01) ==
PROVIDERS: PCP Internal Medicine Adolescent Medicine; Visit Provider Nurse Practitioner Family
DX: R07.9 Chest pain, unspecified (principal); R55 Syncope and collapse; Z12.5 Encounter for screening for malignant neoplasm of prostate; R53.81 Other malaise; R53.83 Other fatigue
CPT/HCPCS: 36415; 78452; 80053; 80061; 82607; 83735; 84443; 85025; 93017; 93018; G0103; A9502

== ENCOUNTER 2025-01-29 07:46 | Outpatient (CLI) | payer MEDICARE, OTHER, SELFPAY ==
--- OUTSIDE RECORDS SUMMARY | 2025-01-29 07:49 | XMS_ITS | Clinical Summary ---
Author Organization Healthcare Address [address] [place] [address] Care Team Providers Care Supplier Quality Engineer Name Role Phone Bandar Dela Cruz MD Primary Care Provider [phone] Family History Medical History Relation Name Comments Conversions - Other Father Back pro blem Heart attack Father Other cancer Mother Relation Name Status Comments Father Mother Social History Tobacco Use Types Packs/Day Years Used Date Smoking Tobacco: Never Assessed Sex and Gender Information Value Date Recorded Sex Assigned at Not on file Legal Sex Male 8:33 PM EDT Gender Identity Not on file Sexual Orientation Not on file Last Filed Vital Signs Vital Sign Reading Time Taken Comments Blood Pressure - - Pulse - - Temperature - - Respiratory Rate - - Oxygen Saturation - - Inhaled Oxygen Concentration - - Weight 99.8 kg (220 lb) 12/07/2016 3:55 PM EDT Height 180.3 cm (5' 11 ) 12/07/2016 3:55 PM EDT Body Mass Index 30.68 12/07/2016 3:55 PM EDT Plan of Treatment Health Maintenance Due Date Last Done Comments [facility]-Depression Screening 1955 [facility]-/Child/Adol SDOH Screenings 1955 [facility]- SDOH Screenings 12/22/1973 [facility]-Adult SDOH Screenings 12/22/1973 CT Colonography 12/22/2000 Colonoscopy 12/22/2000 FIT-DNA 12/22/2000 FIT 12/22/2000 FOBT 12/22/2000 Sigmoidoscopy 12/22/2000 [facility]-Colorectal Cancer Screening 12/22/2000 [facility]-Zoster Vaccines (1 of 2) 12/22/2005 [id number] Vaccine (1 - 20 24-25 season) 2024 [facility]-Influenza Vaccine ([place] n Ended) 2025 [facility]-RSV Vaccine: 60+ Years o r (1 - 1-dose 75+ series) 12/22/2030 [facility]-DTaP,Tdap,and Td Vaccine s (2 - Td or Tdap) 06/14/2033 06/14/2023 [facility]-Pneumococcal Vaccine: 50 + Years Completed 05/02/2023 HPV Vaccines Aged Out No longer eligi ble based on patient's age to complete this topic [facility]-HIB Vaccines Aged Out No longer e ligible based on patient's age to complete this topic [facility]-Hepatitis A Vaccines Aged Out No longer eligible based on patient's age to complete this topic [facility]-IPV Vaccines Aged Out No longer e ligible based on patient's age to complete this topic [facility]-Rotavirus Vaccines Aged Out No lo nger eligible based on patient's age to complete this topic Insurance MEDICARE Care Teams Supplier Quality Engineer Relationship Specialty Start Date End Date Bandar Dela Cruz MD [address] [facility] [place] [address] PCP - General 12/26/20
--- OUTSIDE RECORDS SUMMARY | 2025-01-29 07:49 | XMS_ITS | Data Portability ---
Author Organization [place] - [facility], [facility] Address [address] [place] [address] Assessment Encounter Date Assessment Date Assessment LastModified by Organization Details LastModified Time 10/19/2023 10/19/2023 This patient had a left Sural nerve block done today. We will follow-up with this patient in Our [place] office. If He does not get significant [...] Recorded Time Pain of left ankle joint 6307552205521 9103 Active 2023 Isidro Alcala MD [address], [address], [place] [facility] 22:53:47 Sural neuropathy 086025415 Active 2023 Isidro Alcala MD [address], [address], [place] [facility] 22:53:49 Problem Notes None recorded. Procedures Surgical History Date Name Laterality Status Provider Name and Address Organization Details Recorded Time 4 Sural nerve block completed Isidro Alcala MD [address] [facility] [address], [place], [address], [place] - [facility] 10/19/2023 22:50:11 [...] Updated DateTime 4 180.34 cm 30 kg/m2 17575.3 6 g 98 % 98 % 68 [...] COVID-19 While That Case Was Ill? No [email or web address] Information n ot available 10/10/2023 In The 14 Days Before Symptom Onset, Have You Had Close Contact With A Person Who Is Under Investigation For COVID-19 While That Person Was Ill? No Information not available 10/10/2023 Have You Been To An Area Known To Be High Risk For COVID-19? No [email or web address] Information not available 10/10/2023 Sex: Unknown Functional Status Question Answer Note LastModified by Organizat ion Details LastModified Time Do you use any illicit or recreational drugs? No [email or web address] Information not available 10/10/2023 Do you or have you ever used any other forms of tobacco or nicotine? No [email or web address] Information not available 10/10/2023 What is your level of alcohol consumption? None [email or web address] Information not available 10/10/2023 Mental Status None recorded. Family History Nothing Reported. Medical History Condition Response Coronary Artery Disease N Gout N Hernia N Head Trauma/Injury N Thyroid Problems N Depression N COPD N Anemia N Heart Attack ([place]) N Ulcers N Diabetes N Anxiety Disorder N Bleeding [...] SNOMED-CT Code Diagnosis ICD10 Code Diagnosis Note [id number] Isidro Alcala MD [address] [place] [phone] 10/19/2023 14:29:23 10/19/2023 16:55:56 Ankle pain 924577387 M25.579 Sural neuropathy 8697178 00 G57.82 Pain of le ft ankle joint 9559056490 0703989 M25.572 Health Concerns Section Related Observation LastModified by Organization Detai ls LastModified Time None Recorded Concern Status LastModified by Organization Details LastModified Time None Recorded Advance Directives Directive None Recorded Payers Insurance Date Sequence Insurance Name Policy Number Policy Max Covered Member ID Max Member ID Guarantor Name 10/16/2023 1 [place] Rayshawn Palomino [id number] 4 Rayshawn Palomino 12/17/2023 2 [facility] (MEDICARE SUPPLEMENT) Rayshawn Palomino [id number] Rayshawn Palomino Notes Date Note Type Note Provider Name and Address Organization Details Recorded Time 10/19/2023 text/html AnkleReported bypatient.Location: left Quality:throbbing; sharp Severity:mild; pain level 4/10; worsening Timing:constant Duration:6 months Context:[place] Aggravating Factors:walking; lifting; carrying; twisting; bending/squatting; [...] Work Related:no Isidro Alcala MD [address], [address], [place] - [facility] 10/19/2023 22:55:08
--- NOTE | 2025-01-29 08:00 | CA_ITS ---
FINAL REPORT TECHNIQUE: Color Doppler, duplex Doppler and mathis scale sonography of the bilateral neck arterial vasculature was performed. Velocities were measured in the carotid arteries. Stenosis evaluation based on the validated velocity criteria. CLINICAL HISTORY: DIZZINESS FINDINGS: The peak systolic velocity of the right common carotid artery is 110 cm/s. The peak systolic velocity of the right internal carotid artery is 103 cm/s and end diastolic velocity 26 cm/s. The ICA/CCA ratio is 0.93. A minimal amount of plaque is present. The right external carotid artery is patent. The right vertebral artery is patent with antegrade flow. The peak systolic velocity of the left common carotid artery is 123 cm/s. The peak systolic velocity of the left internal carotid artery is 93 cm/s and end diastolic velocity 28 cm/s. The ICA/CCA ratio is 0.95. A minimal amount of plaque is present. The left external carotid artery is patent.The left vertebral artery is patent with antegrade flow. IMPRESSION: Less than 50% bilateral carotid stenoses. Bilateral patent vertebral arteries with antegrade flow. If indicated, CTA or MRA could further evaluate. Reviewed, Interpreted and Dictated by Noble Muniz MD Transcribed by Alyson Garcia Authenticated and [facility]
[2025-01-29 08:27] VITALS: BMI 29.1
[2025-01-29 08:28] VITALS: BP 136/80; PULSE 52; RESP 20; TEMP 36.3; O2SAT 96
[2025-01-29 08:35] VITALS: BP 143/77; PULSE 53; RESP 18; O2SAT 97
[2025-01-29 08:40] VITALS: BP 147/84; PULSE 53; RESP 18; O2SAT 97
[2025-01-29 08:45] VITALS: BP 126/71; PULSE 53; RESP 18; O2SAT 97
[2025-01-29 08:50] VITALS: BP 131/68; PULSE 53; RESP 18; O2SAT 97
[2025-01-29] MEDS: 0.9 % SODIUM CHLORIDE 50 ML VIAL IV (08:57)
[2025-01-29] MEDS: IOPAMIDOL-370 (76%);100ML BOTTLE 170 ML IV (08:58)
[2025-01-29] MEDS: SODIUM CHLORIDE 0.9% 10ML SYR (RAD ONLY) 10 ML IV (08:58)
--- NOTE | 2025-01-29 10:00 | CT_ITS ---
APPROVED REPORT Banquet Manager: CLINICAL INDICATION Chest Pain TECHNIQUE Image Acquisition: A 128 slice MDCT scanner (Si[employer] Systemsa View) was used for data acquisition. A noncontrast coronary calcium scan was performed. A CT attenuation threshold of 130 Hounsfield units (HU) was used for the detection of calcium in contiguous voxels of 1 sq mm in area to be counted as individual lesions. Bolus tracking in the ascending aorta with a threshold of 180 HU was performed. Immediately afterwards, ECG synchronized cardiac CT was then performed from the cardiac base to apex using retrospective gating with ECG tube current modulation. A total of 85 mL of Isovue 370 mg/mL contrast medium was administered at 5 mL/sec followed by a saline flush using a biphasic injection protocol. A tube voltage of 120 KVp was used. The patient received the following medications prior to the cardiac CT. 0.4 mg of sublingual nitroglycerin The average heart rate at the time of acquisition was 50 bpm and regular. Image Reconstruction Transaxial images were reconstructed at 0.67 mm slide thickness. Data was reviewed interactively on an advanced workstation capable of 2 and 3-dimensional displays in all conventional reconstruction formats, including multiplanar reformations, maximum intensity projections, curved multiplanar reformations, and volume rendered reconstructions. When applicable, selected routine images describing the relevant coronary anatomy and pathology were saved and sent to PACS. Complications None Technical Quality Overall image quality was good. Coronary artery opacification was adequate. Total DLP (Dose-Length Product) is 1567.4 mGy-cm. The reported value represents the total of one or more individual components during the CT acquisition of this date and at this time, and as such, the same value may appear in more than one CT report depending on the interpreting/reporting physicians. COMPARISON None FINDINGS CT Coronary Calcium Scoring LMA (Left Main Artery) = 0 LAD (Left Anterior Descending) = 15 LCX (Left Coronary Circumflex) = 2 RCA (Right Coronary Artery) = 15 Total Calcium Score = 32 using the AJ-130 method. The observed calcium score of 32 is at 30th percentile for subjects of the same age, sex, and race/ethnicity. The interpretation of the calcium heart score is based on the following continuum*: 0 = no calcified plaque detected (risk of coronary artery disease is very low ??? less than 5%) 1-10 = calcium detected in extremely minimal levels (risk of coronary diseases is still low ??? less than 10%) 11-100 = mild levels of plaque detected with certainty (mild or minimal narrowing of heart arteries is likely) 101-400 = definite,at least moderate levels of plaque detected (relatively high risk of a heart attack within 3-5 years) >401-999 = extensive levels of plaque detected (high risk of heart attack, high levels of vascular disease are present, high likelihood of at least one significant coronary narrowing) *The calcium heart score quantifies the burden of coronary calcification/plaque in the coronary arteries. The calcium heart score is not able to evaluate the presence or burden of non-calcified (i.e. soft) plaque. There is also mild calcification in the aortic valve. Coronary CT Angiography The coronary arterial system is right dominant. Quantitative Stenosis Grading: Left Main (LM): The left main originates normally from the left sinus of Valsalva. The LM bifurcates into the left anterior descending artery and left circumflex artery. The LM is patent with no evidence of atherosclerosis. Left Anterior Descending (LAD) and Diagonal Branches: The LAD gives off 3 diagonal branch(es). There is mixed calcified/non-calcified plaque in the proximal and mid LAD segments, with up to 25-49% luminal stenosis. There is no evidence of LAD-myocardial bridge. Left Circumflex (LCX) and Obtuse Marginals (OM): The LCX gives off 1 Obtuse Marginal (OM) branch(es). There is mixed calcified/non-calcified plaque in the proxiaml LCX with < 25% luminal stenosis. Right Coronary Artery (RCA): The RCA originates normally from the right sinus of Valsalva. The RCA gives off a posterior descending artery (PDA) and posterolateral (PL) branches. There is mixed calcified/non-calcified plaque in the proximal and mid RCA segments, with up to 25-49% luminal stenosis. Non-Coronary Cardiac Findings: Analysis of the left ventricular (LV) structure and function was performed after 3-D reconstruction of the LV from axial images, with user-corrected automatic contouring for assessment of LV volumes and user-defined reconstruction from oblique planes for measurement of 3-D cardiac structure and function. -The left ventricle systolic function is normal. -There is no left atrial appendage filling defect. Two right pulmonary veins and two left pulmonary veins drain normally into the left atrium. -No pericardial thickening or calcification. -Central and branch pulmonary arteries in the wltrp-sm-nbva are unremarkable. -Thoracic aorta within the visualized thoracic aortic-branches in the enhwi-os-poww is unremarkable. Extracardiac Structures No significant extra-cardiac findings. Note, however, that this study is focused on the cardiac findings. IMPRESSION -Presence of coronary calcification with an Agatston score = 32 using the AJ-130 method. -The observed calcium score of 32 is at 30th percentile for subjects of the same age, sex, and race/ethnicity. -Mild, non-obstructive atherosclerotic coronary disease, with no evidence of significant flow-limiting plaque. -CAD-RADS 2. Management recommendations per ACC/AHA guidelines*, as clinically appropriate. *Recommendations: CAD RADS 0: Reassurance. Consider non-atherosclerotic causes of chest pain. CAD RADS 1: Consider non-atherosclerotic causes of chest pain. Consider preventive therapy and risk factor modification. CAD RADS 2: Consider non-atherosclerotic causes of chest pain. Consider preventive therapy and risk factor modification, particularly for patients with nonobstructive plaque in multiple segments. CAD RADS 3: Consider further functional testing. Consider symptom-guided anti-ischemic and preventive pharmacotherapy as well as risk factor modification per published guideline statements. CAD RADS 4A: Consider further functional testing or invasive coronary angiography with revascularization per published guideline statements. Consider symptom-guided anti-ischemic and preventive pharmacotherapy as well as risk factor modification per published guideline statements. CAD RADS 4B: Invasive coronary angiography recommended with revascularization per published guideline statements. Consider symptom-guided anti-ischemic and preventive pharmacotherapy as well as risk factor modification per published guideline statements. CAD RADS 5: Consider invasive angiography and/or viability assessment with revascularization per published guideline statements. Consider symptom-guided anti-ischemic and preventive pharmacotherapy as well as risk factor modification per published guideline statements. CRITICAL RESULT None COMMUNICATION Per this written report The coronary and cardiac findings of this CCTA were reviewed, reported, and signed by Alvino Shah MD (Manager Green) Conclusion Electronically signed by : Dilma Shah MD 02/01/2025 14:46:50
== END 2025-01-29 09:03 | disposition home or self-care (01) ==
PROVIDERS: PCP Internal Medicine Adolescent Medicine; Visit Provider Nurse Practitioner Family
DX: I65.23 Occlusion and stenosis of bilateral carotid arteries (principal); I25.10 Atherosclerotic heart disease of native coronary artery without angina pectoris; I10 Essential (primary) hypertension; Z82.49 Family history of ischemic heart disease and other diseases of the circulatory system
CPT/HCPCS: 75574; 93880; Q9967

== ENCOUNTER 2025-02-19 08:46 | Outpatient (CLI) | payer MEDICARE, OTHER, SELFPAY ==
--- NOTE | 2025-02-19 08:50 | XR_ITS ---
FINAL REPORT CLINICAL HISTORY: PAIN RT SHOULDER JOINT COMPARISON: None FINDINGS: RIGHT SHOULDER Three views demonstrate no acute fracture or dislocation. There are mild hypertrophic changes of the acromioclavicular joint. The soft tissues are unremarkable. IMPRESSION: Mild changes of osteoarthritis without acute process. Reviewed, Interpreted and Dictated by Noble Muniz MD Transcribed by Xiomara Lewis Authenticated and [facility]
--- OUTSIDE RECORDS SUMMARY | 2025-02-19 08:50 | XMS_ITS | Data Portability ---
Author Organization [facility], [place] [facility] [place] Address [address] [place] [address] Assessment Encounter Date Assessment Date Assessment LastModified by Organization Details LastModified Time 10/19/2023 10/19/2023 This patient had a left Sural nerve block done today. We will follow-up with this patient in Our [place] office. If He does not get significant [...] Recorded Time Pain of left ankle joint [id number] 9103 Active 2023 Isidro Alcala MD [address], [address], [place] [facility] 22:53:47 Sural neuropathy 049880267 Active 2023 Isidro Alcala MD [address], [address], [place] - [facility] 4 22:53:49 Problem Notes None recorded. Procedures Surgical History Date Name Laterality Status Provider Name and Address Organization Details Recorded Time 4 Sural nerve block completed Isidro Alcala MD [address] [facility] [address], [place], [address], [place] [facility] 10/19/2023 22:50:11 [...] blood by Pulse oximetry Heart rate Systolic And Diastolic Provider Name and Address Organization Details Last Updated DateTime 4 180.34 cm 30 kg/m2 32166.3 6 g 98 % 98 % 68 /min 148/98 mm[Hg] JESS HERNANDEZ - [facility] 4 15:34:53 Social History Question Answer Notes LastModified by Organizat ion Details LastModified Time Tobacco Smoking Status Never Smoker JESS [place], [place] - [facility] 10/10/2023 07:42:20 In The 14 Days Before Symptom Onset, Have You Had Close Contact With A Laboratory-confirm ed COVID-19 While That Case Was Ill? No Information n ot available 10/10/2023 In The 14 Days Before Symptom Onset, Have You Had Close Contact With A Person Who Is Under Investigation For COVID-19 While That Person Was Ill? No [email or web address] Information not available 10/10/2023 Have You Been To An Area Known To Be High Risk For COVID-19? No [email or web address] Information not available 10/10/2023 Sex: Unknown Functional Status Question Answer Note LastModified by Organizat ion Details LastModified Time Do you use any illicit or recreational drugs? No [email or web address] Information not available 10/10/2023 Do you or have you ever used any other forms of tobacco or nicotine? No [email or web address] Information not available 10/10/2023 What is your level of alcohol consumption? None [email or web address] Information not available 10/10/2023 Mental Status None recorded. Family History Nothing Reported. Medical History Condition Response Coronary Artery Disease N Gout N Hernia N Head Trauma/Injury N Thyroid Problems N Depression N COPD N Anemia N Heart Attack ([place]) N Ulcers N Diabetes N Anxiety Disorder [...] SNOMED-CT Code Diagnosis ICD10 Code Diagnosis Note [id number] Isidro Alcala MD [address] [place] [address] 10/19/2023 14:29:23 10/19/2023 16:55:56 Ankle pain 070238426 M25.579 Sural neuropathy 1592273 00 G57.82 Pain of le ft ankle joint 0233497932 6433599 M25.572 Health Concerns Section Related Observation LastModified by Organization Detai ls LastModified Time None Recorded Concern Status LastModified by Organization Details LastModified Time None Recorded Advance Directives Directive None Recorded Payers Insurance Date Sequence Insurance Name Policy Number Policy Max Covered Member ID Max Member ID Guarantor Name 10/16/2023 1 [place] Rayshawn Palomino [id number] Ryashawn Palomino 12/17/2023 2 [facility] (MEDICARE SUPPLEMENT) Rayshawn Palomino [id number] Rayshawn Palomino Notes Date Note Type Note Provider Name and Address Organization Details Recorded Time 10/19/2023 text/html AnkleReported bypatient.Location: left Quality:throbbing; sharp Severity:mild; pain level 4/10; worsening Timing:constant Duration:6 months Context:[place] Aggravating Factors:walking; lifting; carrying; twisting; bending/squatting; [...] Work Related:no Isidro Alcala MD [address], [address], [place] [facility] 10/19/2023 22:55:08
--- OUTSIDE RECORDS SUMMARY | 2025-02-19 08:50 | XMS_ITS | Clinical Summary ---
Author Organization Healthcare Address [address] [place] [address] Care Team Providers Care Cluster Bore Operator Name Role Phone Bandar Dela Cruz MD Primary Care Provider [phone] Family History Medical History Relation Name Comments [...] Date Last Done Comments [facility]-Depression Screening 1955 [facility]-Infant/Child/Adol SDOH Screenings 1955 [facility]- SDOH Screenings 12/22/1973 [facility]-Adult SDOH Screenings 12/22/1973 CT Colonography 12/22/2000 Colonoscopy 12/22/2000 FIT-DNA 12/22/2000 FIT 12/22/2000 FOBT 12/22/2000 Sigmoidoscopy 12/22/2000 [facility]-Colorectal Cancer Screening 12/22/2000 [facility]-Zoster Vaccines (1 of 2) 12/22/2005 [id number] Vaccine (1 - 20 24-25 season) 2024 [facility]-Influenza Vaccine (#1) 2025 [facility]-RSV Vaccine: 60+ Years o r [...] complete this topic Insurance MEDICARE Care Teams Cluster Bore Operator Relationship Specialty Start Date End Date Bandar Dela Cruz MD [address] [place] [id number] PCP - General 12/26/20
== END 2025-02-19 23:59 | disposition home or self-care (01) ==
LOC: RAD 08:47
PROVIDERS: PCP Nurse Practitioner Family; Visit Provider Nurse Practitioner Family
DX: M19.011 Primary osteoarthritis, right shoulder (principal)
CPT/HCPCS: 73030

== ENCOUNTER 2025-02-27 06:51 | Outpatient (CLI) | payer MEDICARE, OTHER, SELFPAY ==
--- NOTE | 2025-02-27 06:53 | MR_ITS ---
FINAL REPORT TECHNIQUE: Multiplanar MR without contrast CLINICAL HISTORY: RIGHT SHOULDER PAIN. LIMITED ROM AND SHOULDER PAIN. FINDINGS: Marrow signal: Unremarkable Glenohumeral joint: Small joint effusion. Mild degenerative changes. AC joint: No obvious impingement. Mild arthropathy. Small amount of fluid is seen in the subacromial bursa presumably related to bursitis. Rotator cuff: Large, focal full-thickness tear involving the junction of the distal supraspinatus and infraspinatus tendons. Defect measures 24 x 19 mm. Labrum: Normal morphology without tear Biceps tendon: Mild partial tear at the level of the humeral head. IMPRESSION: Large, focal full-thickness tear at the junction of the supraspinatus and infraspinatus tendons. Reviewed, Interpreted and Dictated by Hubert Barnes MD Transcribed by Sandra Javier Authenticated and [facility]
--- OUTSIDE RECORDS SUMMARY | 2025-02-27 06:54 | XMS_ITS | Data Portability ---
Author Organization [facility], [facility] [place] Address [address] [place] [address] Assessment Encounter Date Assessment Date Assessment LastModified by Organization Details LastModified Time 10/19/2023 10/19/2023 This patient had a left Sural nerve block done today. We will follow-up with this patient in Our [place] office. If He does not get significant [...] Recorded Time Pain of left ankle joint 7732543330276 9103 Active 2023 Isidro Alcala MD [address], [address], [place] [facility] 22:53:47 Sural neuropathy 167017613 Active 2023 Isidro Alcala MD [address], [address], [place] - [facility] 4 22:53:49 Problem Notes None recorded. Procedures Surgical History Date Name Laterality Status Provider Name and Address Organization Details Recorded Time 4 Sural nerve block completed Isidro Alcala MD [address] [facility] [address], [place], [address], [place] [facility] 10/19/2023 22:50:11 [...] Updated DateTime 4 180.34 cm 30 kg/m2 58072.3 6 g 98 % 98 % 68 [...] COVID-19 While That Case Was Ill? No [email or web address] Information n ot available 10/10/2023 In The 14 Days Before Symptom Onset, Have You Had Close Contact With A Person Who Is Under Investigation For COVID-19 While That Person Was Ill? No [email or web address] Information not available 10/10/2023 Have You Been To An Area Known To Be High Risk For COVID-19? No [email or web address] Information not available 10/10/2023 Sex: Unknown Functional Status Question Answer Note LastModified by Organizat ion Details LastModified Time Do you use any illicit or recreational drugs? No [email or web address] Information not available 10/10/2023 Do you or have you ever used any other forms of tobacco or nicotine? No [email or web address] Information not available 10/10/2023 What is your level of alcohol consumption? None [email or web address] Information not available 10/10/2023 Mental Status None recorded. Family History Nothing Reported. Medical History Condition Response Coronary Artery Disease N Gout N Hernia N Head Trauma/Injury N Thyroid Problems N Depression N COPD N Anemia N Heart Attack ([place]) N Ulcers N Anxiety Disorder N Diabetes N Bleeding Disorder N Arthritis Y Tuberculosis [...] SNOMED-CT Code Diagnosis ICD10 Code Diagnosis Note [id number] Isidro Alcala MD [address] [place] [address] 10/19/2023 14:29:23 10/19/2023 16:55:56 Ankle pain 461578632 M25.579 Sural neuropathy 8303199 00 G57.82 Pain of le ft ankle joint 2243519621 5605287 M25.572 Health Concerns Section Related Observation LastModified by Organization Detai ls LastModified Time None Recorded Concern Status LastModified by Organization Details LastModified Time None Recorded Advance Directives Directive None Recorded Payers Insurance Date Sequence Insurance Name Policy Number Policy Max Covered Member ID Max Member ID Guarantor Name 10/16/2023 1 [place] Rayshawn Palomino [id number] 4 Rayshawn Palomino 12/17/2023 2 [facility] (MEDICARE SUPPLEMENT) Rayshawn Palomino [id number] Rayshawn Palomino Notes Date Note Type Note Provider Name and Address Organization Details Recorded Time 10/19/2023 text/html AnkleReported bypatient.Location: left Quality:throbbing; sharp Severity:mild; pain level 4/10; worsening Timing:constant Duration:6 months Context:[place] Aggravating Factors:walking; lifting; carrying; twisting; bending/squatting; [...] Work Related:no Isidro Alcala MD [address], [address], [place] [facility] 10/19/2023 22:55:08
--- OUTSIDE RECORDS SUMMARY | 2025-02-27 06:54 | XMS_ITS | Clinical Summary ---
Author Organization Healthcare Address [address] [place] [address] Care Team Providers Care Engineering Director Name Role Phone Bandar Dela Cruz MD Primary Care Provider [phone] Family History Medical History Relation Name Comments [...] 12/22/2000 [facility]-Zoster Vaccines (1 of 2) 12/22/2005 [id number] Vaccine (1 - 20 24-25 season) 2024 [...] complete this topic Insurance MEDICARE Care Teams Engineering Director Relationship Specialty Start Date End Date Bandar Dela Cruz MD [address] [place] [phone] PCP - General 12/26/20
== END 2025-02-27 23:59 | disposition home or self-care (01) ==
LOC: RAD 06:52
PROVIDERS: PCP Nurse Practitioner Family; Visit Provider Internal Medicine Adolescent Medicine
DX: M75.121 Complete rotator cuff tear or rupture of right shoulder, not specified as traumatic (principal); M19.111 Post-traumatic osteoarthritis, right shoulder
CPT/HCPCS: 73221

== ENCOUNTER 2025-03-15 12:11 | Outpatient (CLI) | payer MEDICARE, OTHER, SELFPAY ==
[2025-03-15 08:12] VITALS: BMI 28.7
--- OUTSIDE RECORDS SUMMARY | 2025-03-15 12:14 | XMS_ITS | Clinical Summary ---
Author Organization Healthcare Address [address] [place] [address] Care Team Providers Care Manager Communication Name Role Phone Bandar Dela Cruz MD Primary Care Provider [phone] Family History Medical History Relation Name Comments [...] 12/22/2000 [facility]-Zoster Vaccines (1 of 2) 12/22/2005 [id number] Vaccine (1 - 20 24-25 season) 2024 [...] complete this topic Insurance MEDICARE Care Teams Manager Communication Relationship Specialty Start Date End Date Bandar Dela Cruz MD [address] [place] [phone] PCP - General 12/26/20
--- NOTE | 2025-03-15 12:15 | XR_ITS ---
FINAL REPORT CLINICAL HISTORY: pre op surgey rt shoulder arthroscopy hx of CAD COMPARISON: 11/02/2023 FINDINGS: PA and lateral views of the chest were obtained. The cardiac and mediastinal silhouettes are within normal limits. The lungs are clear. There is no pleural effusion or pneumothorax. No acute osseous abnormality is identified. IMPRESSION: No radiographic evidence of acute cardiac or pulmonary disease. Reviewed, Interpreted and Dictated by Anitha Covington MD Transcribed by Xiomara Lewis Authenticated and [facility]
[2025-03-15 12:55] LABS: Alanine Aminotransferase 25 U/L (12-78); Albumin Level 4.6 g/dl (3.5-5.0); Albumin/Globulin Ratio 1.8 (1.1-1.8); Alkaline Phosphatase 81 U/L (38-126); Anion Gap 10.2 mEq/L (5-15); Aspartate Amino Transferase 30 U/L (17-59); Bilirubin,Total 0.9 mg/dl (0.2-1.3); Blood Urea Nitrogen 22 mg/dl (9-20); Calcium 9.4 mg/dl (8.4-10.2); Carbon Dioxide 25 mmol/L (22.0-30.0); Chloride 106 mmol/L (98-107); Creatinine Clearance Estimated 73 mL/min (50-200); Creatinine,Serum 1.30 mg/dl (0.66-1.25); Estimated Glomerular Filt Rate 55 ml/min (>60); GFR (African American) 66 ML/MIN (>60); Globulin 2.6 g/dL (1.3-3.2); Glucose 97 mg/dl (74-100); Potassium 4.2 mmoL/L (3.5-5.1); Sodium 137 mmol/L (136-145); Total Protein,Serum 7.2 g/dl (6.3-8.2)
== END 2025-03-15 23:59 | disposition home or self-care (01) ==
LOC: PREOP 12:12
PROVIDERS: PCP Internal Medicine Adolescent Medicine; Visit Provider Orthopaedic Surgery
DX: Z01.811 Encounter for preprocedural respiratory examination (principal); Z01.812 Encounter for preprocedural laboratory examination
CPT/HCPCS: 71046; 80053

== ENCOUNTER 2025-03-20 08:58 | Day surgery (SDC) | payer MEDICARE, OTHER, SELFPAY ==
[2025-03-15 13:38] VITALS: BMI 28.7
[2025-03-20] VITALS (10 sets, daily range): BP systolic 132–169; BP diastolic 75–88; PULSE 51–68; RESP 12–18; TEMP 36.3–36.4; O2SAT 93–99
[2025-03-20 10:21] LABS: Hematocrit 44.1 % (42.0-52.0); Hemoglobin 14.2 g/dL (14.1-18.0); Immature Granulocytes % 0.2 %; Mean Corpuscular HGB Conc 32.2 g/dL (31.8-35.4); Mean Corpuscular Hemoglobin 28.7 pg (27.0-31.2); Mean Corpuscular Volume 89.1 fl (80-94); Nucleated Red Blood Cells % 0 %; Platelet Count 174 K/mm3 (142-424); Red Blood Count 4.95 M/mm3 (4.60-6.20); Red Cell Distribution Width-SD 44.1 fL; White Blood Count 5.0 K/mm3 (4.8-10.8)
--- NOTE | 2025-03-20 10:49 | P.PNANES_ITS ---
[facility] Disclaimer: The information contained in this section may have been updated after the patient was seen, as this information can be updated by other users. Medical History CAD (coronary artery disease) HLD (hyperlipidemia) Dizziness History of inguinal hernia Arrhythmia Surgical History History of inguinal hernia repair H/O shoulder surgery LEFT Family History Other Family history of cancer Family history of heart disease Social History Smoking Status: Never smoker alcohol intake: never substance use type: denies use current occupational status: employed Travel in the last 8 weeks?: None household members: spouse housing: house current occupational exposures/hazards: No caffeine: No Have you lived/traveled outside US in past 30 days?: No Contact w/someone who lives/traveled outside US past 30 days?: No Exposure to someone with infectious disease in past 14 days?: No Do you have a fever (greater than 100.4 F or 38 C)?: No Have you tested positive for COVID-19?: No Exposed to someone with COVID-19 in past 14 days?: No Do you have a sore throat?: No Do you have a cough?: No Do you have any weakness?: No Do you have any diarrhea?: No Are you experiencing any unusual bleeding?: No Do you have any muscle aches/pain?: No Do you have any abdominal pain?: No Are you experiencing loss of taste or smell?: No [facility] Anesthesia Checklist Patient Identification Patient Identification: Arm Band Structural Data Admitted From: Home Planned Operative Procedure/s: Right Shoulder Arthroscopy Consent for Planned Operative Procedure(s) Verified: Yes Verified Documents: Surgical Consent and History and Physical NPO Status Verified Time NPO: 00:00 Additional verifications Anesthesia Reactions: No Hx Blood Transfusions: No Blood Transfusion Reaction: No Airway Assessment Mallampati Score:: Class II C-Spine Mobility Assessed: Yes TMJ Mobility Assessed: Yes Dentition: Good Dentition Neurological Assessment Level of Consciousness: Awake, Alert and Appropriate Anesthesia Plan Anesthesia Risk discussed: Yes Anesthesia Plan: Verified ASA Class: II Anesthesia Type: General w/block (Right Interscalene Nerve Block. Risks/benefits explained, pt verbalized understanding)
[2025-03-20] MEDS: EPINEPHrine 1MG/ML 30ML VIAL 30 MG ×3 (11:40→12:00)
[2025-03-20] MEDS: RINGERS SOLUTION,LACTATED 12,000 ML 25 ML IR (11:40)
--- NOTE | 2025-03-20 12:49 | P.OP_ITS ---
Date of procedure: 03/20/25 Pre-op Diagnosis:: Right shoulder full-thickness rotator cuff tear Post-op Diagnosis:: Same with partial-thickness biceps tendon tear less than 10% of the tendon Procedure performed:: Right shoulder arthroscopy with rotator cuff repair Right shoulder arthroscopy with debridement partial tear biceps tendon Surgeon:: Hernan Waddell DO Marine [employer]ian Helper(s):: Fletcher ROBERSON AGRICULTURAL ECONOMIST:: Anthony Rodgers Anesthesia: regional Estimated blood loss (mL): 0 Operative findings:: Large full-thickness rotator cuff tear partial thickness biceps tendon tear Operative note:: Patient is identified preoperatively. Right shoulder marked with yes my initials. Underwent a block with anesthesia. Then taken to the operating room placed upon the operating bed. General anesthesia was administered airway secured. Then placed in a lateral position with a beanbag with all bony prominences well-padded and axillary roll placed. Right shoulder was then prepped and draped within the arm guerra once prepped and draped final operative timeout performed to identify proper patient procedure and extremity. Everyone involved in the case agreed. There is no counter indication to beginning. Did receive preoperative antibiotics. Marking pen was used to lily the bony landmarks of the shoulder and standard portal sites. Skin knife is used incise posterior viewing portal blunt with trocar was placed in the glenohumeral joint exchange with a camera. Swept just above the subscapularis tendon the anterior aspect of the shoulder where the anterior working portal was made. This was exchanged with a purple cannula. Attention was then brought to the intra-articular aspect of the shoulder. There is no full-thickness lesions of the cartilage. There was evidence of tearing of the undersurface of the intra-articular aspect of the biceps tendon the biceps did insert normally on the superior aspect of the labrum this tearing was less than 10% of the tendon was debrided with sucker shaver. Within the glenohumeral joint looking up there was evidence of full-thickness tear of the supraspinatus infraspinatus tendons. Attention was then brought to the subacromial space the cannulas were switched in the subacromial space lateral portal was established and exchanged with a passport cannula. Within the passport cannula I brought the tissue grasper and was able to grasp the rotator cuff and bring it back to the attachment level on the tuberosity. Attention was then brought to repair of the rotator cuff the fiber tape was placed through the scorpion needle and then passed through the tendon and single 4.75 mm swivel lock anchor was placed for repair this was then repeated in the more posterior aspect of the tear for completion of the repair of the rotator cuff this gave good repair and that laid flat onto the footprint. No further pathology was seen in the shoulder the camera is removed the joint was drained skin closed with nylon stitch sterile dressing placed and placed in a sling and pillow taken recovery room in stable condition. Condition: stable Disposition: PACU Complications:: None apparent
--- NOTE | 2025-03-20 12:49 | EXP.ANES.I ---
[facility] Anesthesia Record Part I Anesthesia Record I Intake, IV Amount: 900 Hydration: Adequate Estimated blood loss (mL): 10 Urine output (mL): 0 Blood Products used (#): none Blood Pressure: 134/75 SaO2: 93 Pulse Rate: 68 Airway Patency: Patent Respiratory Rate: 12 Temperature: 97.4 F Patient is:: Drowsy and Stable Stable to PACU at:: 12:43
--- NOTE | 2025-03-20 14:48 | P.PNANES_ITS ---
[facility] Anesthesia Record Part II Anesthesia Record Part II Discharge Time: 13:13 Destination: Surgical Day Care (OP Surgery) PACU nurse assessment reviewed?: Yes Patient Condition:: Good Anesthesia Complications:: None Swallowing reflex intact?: Yes Airway Patency: Patent Cyanosis?: No Blood Pressure: 143/88 SaO2: 95 Respiratory Rate: 15 Pulse Rate: 61 Temperature: 97.6 F Mental Status: Alert & Oriented Pain level:: 0 Nausea and/or vomitting:: None Intake, IV Amount: 0 Hydration: Adequate
== END 2025-03-20 14:00 | disposition home or self-care (01) ==
PROVIDERS: PCP Internal Medicine Adolescent Medicine; Visit Provider Orthopaedic Surgery
PROC: (CPT 29805; principal; 2025-03-20 10:30)
DX: M75.121 Complete rotator cuff tear or rupture of right shoulder, not specified as traumatic (principal); S46.211A Strain of muscle, fascia and tendon of other parts of biceps, right arm, initial encounter; X58.XXXA Exposure to other specified factors, initial encounter; I25.10 Atherosclerotic heart disease of native coronary artery without angina pectoris; E78.5 Hyperlipidemia, unspecified; Z79.899 Other long term (current) drug therapy; Z79.82 Long term (current) use of aspirin; Z88.5 Allergy status to narcotic agent
CPT/HCPCS: 29827; 64415; 85025; 96374; C1713; J0169; J0666; J0690; J1100; J2003; J2250; J2405; J2704; J3010

== ENCOUNTER 2025-03-24 02:11 | Emergency (ER) | payer MEDICARE, OTHER, SELFPAY ==
[2025-03-24 02:14] VITALS: BP 177/99; PULSE 69; RESP 16; TEMP 36.7; O2SAT 96; BMI 27.5
--- NOTE | 2025-03-24 02:14 | CT_ITS ---
PROCEDURE INFORMATION: Exam: CTA Chest With Contrast Exam date and time: 03/24/2025 3:39 AM Age: 69 years old Clinical indication: Shortness of breath; Prior surgery; Surgery date: 3-7 days post-operative; Surgery type: Shoulder SX; Additional info: Recent shoulder surg, SOA TECHNIQUE: Imaging protocol: Computed tomographic angiography of the chest with contrast. Exam focused on the arteries. 3D rendering (Not supervised by radiologist): MIP and/or 3D reconstructed images were created by the technologist. Radiation optimization: All CT scans at this facility use at least one of these dose optimization techniques: automated exposure control; mA and/or kV adjustment per patient size (includes targeted exams where dose is matched to clinical indication); or iterative reconstruction. Contrast material: ISOUVE 370; Contrast volume: 70 ml; Contrast route: INTRAVENOUS (IV); COMPARISON: CR XR CHEST 2V 03/15/2025 12:38 PM FINDINGS: Pulmonary arteries: Suboptimal enhancement of the pulmonary arteries, while no definite pulmonary emboli are noted, there is likely limited sensitivity for smaller pulmonary emboli. Aorta: Unremarkable. No aortic aneurysm. No aortic dissection. Lungs: Bibasilar atelectasis.. No consolidation. No masses. Pleural spaces: Unremarkable. No pneumothorax. No pleural effusion. Heart: No coronary calcification is noted. . No cardiomegaly. No pericardial effusion. Lymph nodes: Unremarkable. No enlarged lymph nodes. Bones/joints: Unremarkable. No acute fracture. Soft tissues: Unremarkable. IMPRESSION: Suboptimal enhancement of the pulmonary arteries, while no definite pulmonary emboli are noted, there is likely limited sensitivity for smaller pulmonary emboli.
--- OUTSIDE RECORDS SUMMARY | 2025-03-24 02:18 | XMS_ITS | Clinical Summary ---
Author Organization Healthcare Address [address] [place] [address] Care Team Providers Care Computer Typesetter Keyliner Name Role Phone Bandar Dela Cruz MD Primary Care Provider [phone] Family History Medical History Relation Name Comments [...] 12/22/2000 UKY-Zoster Vaccines (1 of 2) 12/22/2005 [id number]-60 Vaccine (1 - 20 24-25 season) 2024 [...] complete this topic Insurance MEDICARE Care Teams Computer Typesetter Keyliner Relationship Specialty Start Date End Date Bandar Dela Cruz MD [address] [place] [id number] PCP - General 12/26/20
--- NOTE | 2025-03-24 02:30 | ECG_ITS ---
APPROVED REPORT Exam: Resting ECG HR:68 bpm ECG Measurements Heart Rate 68 AXES MO 192 P 23 QRSd 107 QRS -33 QT 387 T -2 QTc 405 Conclusion SINUS RHYTHM LEFT AXIS DEVIATION [QRS AXIS < -30] PATTERN CONSISTENT WITH PULMONARY DISEASE INCOMPLETE RIGHT BUNDLE BRANCH BLOCK [90+ ms QRS DURATION, TERMINAL R IN V1/V2, 40+ ms S IN I/aVL/V4/V5/V6] No STEMI Electronically signed by : KENDRCIK RIVERA, 03/24/2025 04:46:20
--- NOTE | 2025-03-24 02:31 | CT_ITS ---
PROCEDURE INFORMATION: Exam: CT Head Without Contrast Exam date and time: 03/24/2025 3:26 AM Age: 69 years old Clinical indication: Other: Post op hallucinations TECHNIQUE: Imaging protocol: Computed tomography of the head without contrast. Radiation optimization: All CT scans at this facility use at least one of these dose optimization techniques: automated exposure control; mA and/or kV adjustment per patient size (includes targeted exams where dose is matched to clinical indication); or iterative reconstruction. COMPARISON: MR HEAD/BRAIN WO CON 03/16/2023 4:22 PM FINDINGS: Brain: Normal. No hemorrhage. Age appropriate white matter. No mass effect. No focal mass. The mathis-white matter junction is intact. Cerebral ventricles: No ventriculomegaly. Paranasal sinuses: Visualized sinuses are unremarkable. No fluid levels. Mastoid air cells: Visualized mastoid air cells are well aerated. Bones: Unremarkable. No acute fracture. Soft tissues: Unremarkable. IMPRESSION: Unremarkable noncontrast examination of brain. There is no hemorrhage or mass. There is no large infarction seen.
--- NOTE | 2025-03-24 02:31 | CT_ITS ---
PROCEDURE INFORMATION: Exam: CTA Neck With Contrast Exam date and time: 03/24/2025 3:35 AM Age: 69 years old Clinical indication: Visual disturbance and other: Post op hallucinations; Additional info: Post op visual hallucinations TECHNIQUE: Imaging protocol: Computed tomographic angiography of the neck with contrast. Exam focused on the cervical segments of the vasculature. 3D rendering (Not supervised by radiologist): MIP and/or 3D reconstructed images were created by the technologist. Radiation optimization: All CT scans at this facility use at least one of these dose optimization techniques: automated exposure control; mA and/or kV adjustment per patient size (includes targeted exams where dose is matched to clinical indication); or iterative reconstruction. Contrast material: ISOUVE 370; Contrast volume: 80 ml; Contrast route: INTRAVENOUS (IV); COMPARISON: US CA CAROTID DUPLEX BI 01/29/2025 7:56 AM FINDINGS: Right common carotid artery: No stenosis. No dissection or occlusion. Right internal carotid artery: No significant stenosis. No dissection or occlusion. Right external carotid artery: No occlusion or stenosis of the origin. Left common carotid artery: No stenosis. No dissection or occlusion. Left internal carotid artery: No significant stenosis. No dissection or occlusion. Left external carotid artery: No occlusion or stenosis of the origin. Right vertebral artery: No stenosis. No dissection or occlusion. Left vertebral artery: No stenosis. No dissection or occlusion. Soft tissues: Normal. No significant soft tissue swelling. Bones/joints: No acute fracture. IMPRESSION: Unremarkable examination with no significant stenosis, dissection, or occlusion. REFERENCES: NASCET CRITERIA. The degree of stenosis in the cervical segment of the internal carotid artery is based on NASCET criteria. Normal is no stenosis. Mild is less than 50% stenosis. Moderate is 50-69% stenosis. Severe is 70% to 99% stenosis. Total occlusion is no detectable patent lumen.
--- NOTE | 2025-03-24 02:31 | CT_ITS ---
PROCEDURE INFORMATION: Exam: CTA Head With Contrast, Arteriography Exam date and time: 03/24/2025 3:35 AM Age: 69 years old Clinical indication: Visual disturbance and other: Post op hallucinations; Additional info: Post op visual hallucinations TECHNIQUE: Imaging protocol: Computed tomographic angiography of the head with contrast. Exam focused on the arteries. 3D rendering (Not supervised by radiologist): MIP and/or 3D reconstructed images were created by the technologist. Radiation optimization: All CT scans at this facility use at least one of these dose optimization techniques: automated exposure control; mA and/or kV adjustment per patient size (includes targeted exams where dose is matched to clinical indication); or iterative reconstruction. Contrast material: ISOUVE 370; Contrast volume: 80 ml; Contrast route: INTRAVENOUS (IV); COMPARISON: CT HEAD/BRAIN WO CON 03/24/2025 3:26 AM FINDINGS: ANTERIOR CIRCULATION: Right internal carotid artery: Intracranial segment is patent with no significant stenosis or occlusion. No aneurysm. Right middle cerebral artery: No occlusion or significant stenosis. No aneurysm. Right anterior cerebral artery: No occlusion or significant stenosis. No aneurysm. Left internal carotid artery: Intracranial segment is patent with no significant stenosis. No aneurysm. Left middle cerebral artery: No occlusion or significant stenosis. No aneurysm. Left anterior cerebral artery: No occlusion or significant stenosis. No aneurysm. POSTERIOR CIRCULATION: Right vertebral artery: No occlusion or significant stenosis. No aneurysm. Left vertebral artery: No occlusion or significant stenosis. No aneurysm. Basilar artery: No occlusion or significant stenosis. No aneurysm. Right posterior cerebral artery: No occlusion or significant stenosis. No aneurysm. Left posterior cerebral artery: No occlusion or significant stenosis. No aneurysm. Veins: There is no venous thrombosis. Brain: Normal. No hemorrhage. Unremarkable white matter. No mass effect. Cerebral ventricles: Normal. No ventriculomegaly. Bones/joints: Unremarkable. No acute fracture. Soft tissues: Unremarkable. IMPRESSION: No evidence for a embolism, significant stenosis, dissection, aneurysm, or venous thrombosis.
--- NOTE | 2025-03-24 02:49 | ED_ITS ---
Discharge Plan Disposition Patient Disposition: Home, Self-Care Condition: Good Prescriptions Prescriptions: No Action tamsulosin [Flomax] 0.4 mg capsule 0.4 mg PO DAILY aspirin [Adult Low Dose Aspirin] 81 mg tablet,delayed release (DR/EC) 81 mg PO DAILY Qty: 30 2RF diclofenac sodium 75 mg tablet,delayed release (DR/EC) 75 mg PO DAILY oxycodone-acetaminophen 5-325 mg tablet 1 tab PO Q4H PRN (Reason: post op pain) Qty: 42 0RF Referrals Follow up/Referrals: Provider,Referral, MD [Primary Care Provider, Medical] - See instructions Activity Restrictions/Add. Instructions Additional Instructions/Restrictions: You were evaluated in the ER and are believed to be appropriate for discharge at this time, as discussed, wean off of the oxycodone and tramadol. I recommend taking Tylenol (650-1000mg) and ibuprofen (600-800mg) together 3 times a day for pain management and if you are still having breakthrough pain, then using one of your prescribed pain pills. Drink water and eat a small snack each time you take these medications to avoid side effects. Do not take ibuprofen at these doses for more than 7 days. Continue other home medications as previously prescribed. Drink plenty of water. As discussed, you can break your tramadol or oxycodone in half instead of taking full doses as well if you are worried about side effects. Wean off of them as tolerated. Call your orthopedic surgeon first thing Tuesday to discuss correct placement of your sling and the medication side effects you are experiencing. Follow-up with your primary care doctor for reevaluation in a few days to ensure you are improving. Return to the ER with any new, worsening, or otherwise concerning symptoms. Clinical Impressions Clinical Impression: Hallucinations, visual, Drug side effects, Panic attack Print Language Print Language: Kazakh Discharge ED Provider: Talha Silver Adult [facility] General Chief complaint: Anxiety Stated complaint: elbow surgery tuesday, sob Time Seen by Provider: 03/24/25 02:14 Mode of Arrival: Ambulatory Source of Information: Patient, Spouse and Relative Description of Symptoms (Recalled from ER Triage Doc. by RN): Pt presents with c/o hallucinations and feelings of panic when waking up from sleep. Pt reports to having surgery on his right shoulder x4 days ago with prescriptions for multiple different pain medications. Pt presents at this time AOx4, NAD noted, RR even and non labored, skin pwd History of Present Illness HPI narrative: 69-year-old male presents to the ER complaining of hallucinations and panic when waking from sleep. Patient had right shoulder rotator cuff surgery 4 days ago and was prescribed oxycodone, tramadol, Zofran at that time. Patient reports 24 hours after surgery he started having the symptoms with which she presents tonight. He states they are worse at night. He states he has visual hallucinations that look like ripples and bubbles like water . Patient points to a blank computer screen in the ER and states it looks like there is water running across that screen . He is oriented and aware that these things are not real but states when he wakes up with these, he gets very panicked, he feels tight in his chest. He has been also having episodes of feeling hot. Patient only has a history of occasional alcohol use, no tobacco or other illicit drug use. He has no numbness, tingling, or weakness. He states he has had chronic pain in his right shoulder blade since the surgery. He denies any falls or injuries, no headache or dizziness, no fevers or chills, no nausea, vomiting, or diarrhea. Patient and family have been dealing with the symptoms for multiple days and suspected it may be related to his pain medications so he cut back on oxycodone but has still been taking tramadol. Most recent dose of oxycodone was approximately 18 hours prior to arrival to the ER. No history of blood clots or cardiac problems, no recent illness. He denies any swelling or pain in the feet or legs. No other complaints or concerns. Related Data Home Medications ?Medication ?Instructions ?Recorded ?Confirmed tamsulosin 0.4 mg capsule (Flomax) 0.4 mg PO DAILY 03/20/25 diclofenac sodium 75 mg 75 mg PO DAILY 08/30/2402/06 tablet,delayed release Previous Rx's ?Medication ?Instructions ?Recorded aspirin 81 mg tablet,delayed 81 mg PO DAILY #30 tabs 0 02/12/25 release (Adult Low Dose Aspirin) oxycodone-acetaminophen 5 mg-325 1 tab PO Q4H PRN post op pain #42 03/20/25 mg tablet tabs Allergies Allergy/AdvReac Type Severity Reaction Status Date / Time No Known Allergies Allergy Verified 03/20/25 10:02 [facility] Disclaimer: The information contained in this section may have been updated after the patient was seen, as this information can be updated by other users. Medical History CAD (coronary artery disease) HLD (hyperlipidemia) Dizziness History of inguinal hernia Arrhythmia Surgical History History of inguinal hernia repair H/O shoulder surgery LEFT Family History Other Family history of cancer Family history of heart disease Social History Smoking Status: Never smoker alcohol intake: never substance use type: denies use current occupational status: employed Travel in the last 8 weeks?: None household members: spouse housing: house current occupational exposures/hazards: No caffeine: No Have you lived/traveled outside [place] in past 30 days?: No Contact w/someone who lives/traveled outside US past 30 days?: No Exposure to someone with infectious disease in past 14 days?: No Do you have a fever (greater than 100.4 F or 38 C)?: No Have you tested positive for COVID-19?: No Exposed to someone with COVID-19 in past 14 days?: No Do you have a sore throat?: No Do you have a cough?: No Do you have any weakness?: No Do you have any diarrhea?: No Are you experiencing any unusual bleeding?: No Do you have any muscle aches/pain?: No Do you have any abdominal pain?: No Are you experiencing loss of taste or smell?: No Other Medical History Have you received the Flu Vaccine for this season: No Have you received the Pneumonia Vaccine: Yes ROS Obtained: Yes Systems reviewed as appropriate & no additional complaints except as documented per HPI Physical Exam General General appearance: alert and in no apparent distress Head Head exam: atraumatic and normocephalic Eye Eye exam: Present PERRL and EOMI; Absent jaundice, conjunctival injection or nystagmus ENT ENT exam: Present mucous membranes moist Neck Neck exam: Present normal inspection and full ROM Chest Chest inspection: Present symmetric chest wall rise; Absent tenderness Respiratory Respiratory exam: Present normal lung sounds bilaterally; Absent respiratory distress, wheezes or stridor Cardiovascular Cardiovascular exam: Present regular rate and normal rhythm Abdominal Exam Abdominal exam: Present soft; Absent distention, tenderness, guarding or rebound Extremities Exam Extremities exam: Present full ROM and other (Right upper extremity in immobilizer sling, incisions clean, dry, well-approximated, no evidence of dehiscence or infection, no tenderness of the right shoulder blade though patient complains of pain in this area since surgery); Absent edema, joint swelling or calf tenderness Back Exam Back exam: Absent tenderness Neurological Exam Neurological exam: Present alert and oriented X3; Absent motor sensory deficit Psychiatric Psychiatric exam: Present normal affect, normal mood and other (Patient is aware of visual hallucinations, no auditory or tactile hallucinations, no command hallucination); Absent homicidal ideation or suicidal ideation Skin Skin exam: Present warm and dry Medical Decision Making Medical Records Medical records reviewed: Yes I reviewed the patient's medical records. Screening: Per USPSTF and CDC recommendations, given the prevalence of disease in our region, it is our hospital?s policy to screen for HIV and viral Hepatitis for all patients aged 18 and over and those with ongoing risk factors. MR Comment: Operative note from Dr. Waddell on 03/20/2025 does not demonstrate any concerns for difficulties during the procedure. Anesthesia records demonstrate that patient was in good condition at the time of discharge with reassuring vitals, no anesthesia complications noted. Chris Inquiry Pt receiving controlled substance: No Vital Signs: 03/24/25 02:14 03/24/25 03:48 Temperature 98.1 F Temperature Source Oral Pulse Rate 68 Pulse Rate [Radial] 69 Respiratory Rate 16 11 L Blood Pressure 171/84 H Blood Pressure [Right Arm] 177/99 H Blood Pressure Mean [Right Arm] 125 Blood Pressure Position [Right Arm] Sitting 02 Sat by Pulse Oximetry 96 91 L Oxygen Delivery Method Room Air Lab Data Lab Results 03/24/25 02:31: VBG pH 7.39, VBG pCO2 46.0, VBG pO2 35.7, VBG HCO3 27.2, VBG Total CO2 28.6 H, VBG O2 Saturation 69.2, VBG Base Excess 2.3, VBG Lactic Acid 1.0 03/24/25 02:47: WBC 7.3, RBC 5.17, Hgb 14.9, Hct 46.2, MCV 89.4, MCH 28.8, MCHC 32.3, RDW 13.4, Plt Count 238 D, MPV 10.7 H, Neut % (Auto) 75.7, Lymph % (Auto) 12.5, Spink % (Auto) 8.9, Eos % (Auto) 1.8, Baso % (Auto) 0.8, Neut # (Auto) 5.6, Lymph # (Auto) 0.9, Spink # (Auto) 0.7, Eos # (Auto) 0.1, Baso # (Auto) 0.1, PT 10.5, INR 0.94, APTT 27.0, Sodium 137, Potassium 4.0, Chloride 99, Carbon Dioxide 30, Anion Gap 12.0, BUN 13, Creatinine 1.00, Estimated Creat Clear 91, Estimated GFR 74, Est GFR ( Amer) 90, Glucose 103 H, Calcium 10.1, Total Bilirubin 0.7, AST 60 H, ALT 42, Alkaline Phosphatase 90, Troponin I < 0.01, N T-Pro-B Natriuret Pep 224 H, Total Protein 7.9, Albumin 4.7, Globulin 3.2, Albumin/Globulin Ratio 1.5, TSH 1.32, Free T4 1.67 03/24/25 03:01: Urine Color Yellow, Urine Appearance Clear, Urine pH 7.0, Ur Specific Amonate 1.010, Urine Protein Negative, Urine Glucose (UA) Negative, Urine Ketones Negative, Urine Blood Negative, Urine Nitrate Negative, Urine Bilirubin Negative, Urine Urobilinogen 0.2, Ur Leukocyte Esterase Negative, Urine RBC None, Urine WBC None, Ur Squamous Epith Cells Occasional, Urine Bacteria None, Urine Opiates Screen Negative, Urine Methadone Screen Negative, Ur Barbituates Screen Negative, Ur Phencyclidine Scrn Negative, Ur Amphetamines Screen Negative, U Benzodiazepines Scrn Negative, Urine Cocaine Screen Negative, U Marijuana (THC) Screen Negative 03/24/25 02:47 03/24/25 02:47 Orders (Tests/Meds): ED MEDICATIONS Generic Name Dose Route Start Last Admin Trade Name Freq PRN Reason Stop Dose Admin Sodium Chloride 10 ml 03/24/25 03:46 Sodium Chloride 0.9% 10ml Syr (Rad Only) IV 04/23/25 03:45 NEEDED PRN Maintain IV Site Discontinued Medications Generic Name Dose Route Start Last Admin Trade Name Freq PRN Reason Stop Dose Admin Aspirin 324 mg 03/24/25 02:14 03/24/25 02:56 Aspirin 81mg Chewable Tablet PO 03/24/25 02:15 324 mg ONCE ONE Administration Lactated Ringer's 1,000 mls @ 999 mls/hr 03/24/25 02:31 03/24/25 02:56 Lactated Ringer's 1000 Ml Bag IV 03/24/25 03:31 999 mls/hr .Q1H1M ONE Administration Iopamidol 150 ml 03/24/25 03:46 Iopamidol-370 (76%);100ml Bottle IV 03/24/25 03:47 ONCE ONE Sodium Chloride 80 ml 03/24/25 03:46 0.9 % Sodium Chloride 50 Ml Vial IV 03/24/25 03:47 ONCE ONE ORDERS Category Date Time Status CT angio chest PE protocol Stat Cat Scan 03/24/25 02:[address] angio head Stat Cat Scan 03/24/25 02:[address] angio neck Stat Cat Scan 03/24/25 02:[address] head/brain wo con Stat Cat Scan 03/24/25 02:31 Completed Activated Partial Thrombo Time Stat Lab 03/24/25 02:47 Completed Complete Blood Count Auto Diff Stat Lab 03/24/25 02:47 Completed Comprehensive Metabolic Panel Stat Lab 03/24/25 02:47 Completed Free T4 (Free Thyroxine) Stat Lab 03/24/25 02:47 Completed NT Pro Brain Natriuretic Pep. Stat Lab 03/24/25 02:47 Completed Prothrombin Time INR Stat Lab 03/24/25 02:47 Completed TSH [Thyroid Stimulating Hormone] Stat Lab 03/24/25 02:47 Completed Troponin I Q3H Lab 03/24/25 05:15 Ordered Troponin I Q3H Lab 03/24/25 08:15 Ordered Troponin I Stat Lab 03/24/25 02:47 Completed UDS [Drug Screen,Urine] Stat Lab 03/24/25 03:01 Completed Urinalysis and Microscopic Stat Lab 03/24/25 03:01 Completed VBG [Venous Blood Gas] Stat RT 03/24/25 02:31 Completed Medical Decision Narrative: In summary, this 69-year-old male with recent right shoulder surgery and no documented history of CAD though he reported no history of cardiac problems presents to the emergency department today with concerns of visual hallucinations, panic attacks. On initial evaluation patient is hemodynamically stable, afebrile, GCS 15, NIH 0, no neurologic deficits, patient does have visual hallucinations but is able to be redirected from them, no auditory or tactile hallucinations, no command hallucinations, no SI or HI, patient states his hallucinations get him agitated and he starts having panic attacks feeling pressure in his chest but he has a benign cardiopulmonary exam, he is not having any chest symptoms at this time, no shortness of breath or difficulty breathing. Lungs clear bilaterally, no swelling in the feet or legs, surgical incisions are very well-appearing. Differential diagnosis includes but is not limited to polypharmacy, medication side effects are #1 on my differential for the hallucinations which are inducing panic attacks because patient is of more advanced age and is quite opioid na?ve. I did also consider the possibility of acute intracranial pathology though I suspect this is much less likely since he has no neurologic deficits, I also considered ACS, PE in the postoperative setting, with patient having hot flashes I considered thyroid abnormality or the potential for systemic infection/illness but he has no other symptoms that would be associated with systemic illness so I considered this to be less likely. It is not clear to me whether the patient had a Vega catheter placed during surgery but if he did it is possible that bacteria was introduced and that he could have UTI so this was also considered. Ruling out the most morbid conditions drove my assessment. Based on these concerns, I ordered serum labs, cardiac workup, CT imaging, urine studies. ECG personally interpreted demonstrates sinus rhythm, rate 69, left axis deviation, normal AK and QTc, no STEMI. ECG was repeated shortly thereafter demonstrating sinus rhythm, rate 68, left axis deviation, normal AK and QTc, no STEMI. No dynamic changes or other abnormalities. ECG was only repeated because there were 2 orders for it in the system. Patient received IV fluids, aspirin for treatment. Labs personally reviewed demonstrate no leukocytosis or anemia, normal platelets, PT/INR and APTT normal, VBG with normal pH, no hypercarbia, normal PO2, normal VBG lactic, CMP nonactionable and unremarkable, troponin undetectably low less than 0.01 significantly reassuring against cardiac pathology in the setting of nonischemic appearing ECG and patient having multiple days of symptoms. If symptoms were cardiac in etiology I would expect his troponin to be elevated by now which he does not. BNP is 224 with no previous comparison, he has no rales or peripheral edema, no clinical findings of volume overload. Nonactionable at this time. Free T4 normal, reassuring. UA negative for findings of infection, UDS negative for all analytes. This is consistent with patient not having had oxycodone since 7 AM yesterday and only being on tramadol which may not show up as an opiate on UDS. CT head personally interpreted does not demonstrate acute intracranial abnormality, see radiology read from interpretation. CT PE does not demonstrate obvious large PE, there is some atelectasis, see radiology read for final interpretation. CT angiography head and neck on my personal interpretation do not demonstrate acute lesion, see radiology reads for full interpretations. On reassessment patient feels improved stating he is no longer nearly as anxious. He states he is still having some visual hallucinations like was described earlier but he is much more calm about them with an understanding of what could be going on. I again discussed with patient and family recommendations for pain management, weaning off medications at home, and potential duration of side effects. They all understand this and are very agreeable to the plan. They were given the opportunity to ask questions which were answered to their satisfaction and are very grateful for the help provided. Based on patient's very reassuring workup I still believe his symptoms are related to medication side effects and am reassured that he is appropriate for discharge. Patient and family were given instructions on symptomatic management, follow up instructions, and return precautions for the emergency department. They indicated understanding and he was discharged in stable condition. Critical Care Critical Care Time Critical Care Time: No
[2025-03-24 02:56] LABS: Lactate Venous 1.0 mmol/L (0.4-2.0); VBG HCO3 27.2 mmol/L (23-30); VBG PCO2 46.0 mmol/L (35-51); VBG PH 7.39 mmol/L (7.31-7.41); VBG PO2 35.7 mmol/L (28-40)
[2025-03-24] MEDS: LACTATED RINGERS 1000ML 1,000 ML 999 ML IV (02:56)
[2025-03-24] MEDS: ASPIRIN 81MG CHEWABLE TABLET 324 MG PO (02:56)
[2025-03-24 03:03] LABS: Hematocrit 46.2 % (42.0-52.0); Hemoglobin 14.9 g/dL (14.1-18.0); Immature Granulocytes % 0.3 %; Mean Corpuscular HGB Conc 32.3 g/dL (31.8-35.4); Mean Corpuscular Hemoglobin 28.8 pg (27.0-31.2); Mean Corpuscular Volume 89.4 fl (80-94); Nucleated Red Blood Cells % 0 %; Platelet Count 238 K/mm3 (142-424); Red Blood Count 5.17 M/mm3 (4.60-6.20); Red Cell Distribution Width-SD 43.9 fL; White Blood Count 7.3 K/mm3 (4.8-10.8)
[2025-03-24 03:05] LABS: Microscopic, Urine URINE MICROSCOPIC (MICROSCOPIC)
[2025-03-24 03:09] LABS: Alanine Aminotransferase 42 U/L (12-78); Albumin Level 4.7 g/dl (3.5-5.0); Albumin/Globulin Ratio 1.5 (1.1-1.8); Alkaline Phosphatase 90 U/L (38-126); Anion Gap 12.0 mEq/L (5-15); Aspartate Amino Transferase 60 U/L (17-59); Bilirubin,Total 0.7 mg/dl (0.2-1.3); Blood Urea Nitrogen 13 mg/dl (9-20); Calcium 10.1 mg/dl (8.4-10.2); Carbon Dioxide 30 mmol/L (22.0-30.0); Chloride 99 mmol/L (98-107); Creatinine Clearance Estimated 91 mL/min (50-200); Creatinine,Serum 1.00 mg/dl (0.66-1.25); Estimated Glomerular Filt Rate 74 ml/min (>60); GFR (African American) 90 ML/MIN (>60); Globulin 3.2 g/dL (1.3-3.2); Glucose 103 mg/dl (74-100); Potassium 4.0 mmoL/L (3.5-5.1); Sodium 137 mmol/L (136-145); Total Protein,Serum 7.9 g/dl (6.3-8.2)
[2025-03-24 03:11] LABS: Activated Partial Thrombo Time 27.0 seconds (22.8-30.6); INR 0.94 (0.9-1.1); Prothrombin Time 10.5 seconds (10.1-12.5)
[2025-03-24 03:17] LABS: Bilirubin,Urine Negative (Negative); Color,Urine YELLOW (Yellow); Glucose,Urine (UA) Negative (Negative); Ketones,Urine Negative (Negative); Leukocyte Esterase,Urine Negative (Negative); PH,Urine 7.0 (5.0-8.5); Protein,Urine Negative (Negative); Specific Gravity, Urine 1.010 (1.005-1.030); Urobilinogen,Urine 0.2 EU/dl (0.2)
[2025-03-24 03:20] LABS: NT Pro Brain Natriuretic Pep. 224 pg/mL (0-125)
[2025-03-24 03:24] LABS: Troponin I < 0.01 ng/ml (0.00-0.034)
[2025-03-24 03:24] LABS: Squamous Epithelial Cell,Urine Occasional #/hpf (0-5)
[2025-03-24 03:26] LABS: Free T4 (Free Thyroxine) 1.67 ng/dl (0.78-2.19)
[2025-03-24 03:30] LABS: Barbiturates Screen,Urine Negative ng/ml (<200); Benzodiazepines Screen,Urine Negative ng/ml (<200)
[2025-03-24 03:31] LABS: Amphetamine/Metha Screen,Urine Negative ng/ml (<1000)
[2025-03-24 03:32] LABS: Methadone Screen,Urine Negative ng/ml (<300)
[2025-03-24 03:33] LABS: Phencyclidine Screen,Urine Negative ng/ml (<25)
[2025-03-24 03:34] LABS: Opiate Screen,Urine Negative ng/ml (<300)
[2025-03-24 03:39] LABS: Thyroid Stimulating Hormone 1.32 uIU/mL (0.465-4.68)
[2025-03-24 03:48] VITALS: BP 171/84; PULSE 68; RESP 11; O2SAT 91
[2025-03-24 04:38] VITALS: BP 147/84; PULSE 74; RESP 16; TEMP 36.7; O2SAT 100
--- NOTE | 2025-03-26 03:06 | ECG_ITS ---
APPROVED REPORT Exam: Resting ECG HR:69 bpm ECG Measurements Heart Rate 69 AXES NM 182 P 16 QRSd 112 QRS -37 QT 392 T -1 QTc 412 Conclusion SINUS RHYTHM LEFT AXIS DEVIATION [QRS AXIS < -30] PATTERN CONSISTENT WITH PULMONARY DISEASE INCOMPLETE RIGHT BUNDLE BRANCH BLOCK [90+ ms QRS DURATION, TERMINAL R IN V1/V2, 40+ ms S IN I/aVL/V4/V5/V6] ABNORMAL ECG Electronically signed by : MINAL CARLSON, 03/28/2025 21:59:41
== END 2025-03-24 04:43 | disposition home or self-care (01) ==
PROVIDERS: Emergency Provider Emergency Medicine
DX: T50.905A Adverse effect of unspecified drugs, medicaments and biological substances, initial encounter (principal); R44.1 Visual hallucinations; F41.9 Anxiety disorder, unspecified; E78.5 Hyperlipidemia, unspecified; I25.10 Atherosclerotic heart disease of native coronary artery without angina pectoris; I10 Essential (primary) hypertension
CPT/HCPCS: 70450; 70496; 70498; 71275; 80053; 80307; 81001; 82803; 83880; 84439; 84443; 84484; 85025; 85610; 85730; 93005; 96360; 99285; J7120

== ENCOUNTER 2025-04-22 10:01 | Outpatient (CLI) | payer MEDICARE, OTHER, SELFPAY ==
--- NOTE | 2025-04-22 10:04 | XR_ITS ---
FINAL REPORT CLINICAL HISTORY: right shoulder pain post op 3 weeks ago COMPARISON: None FINDINGS: 2 views of the right shoulder were obtained, a scapular view and an axial view. There is no fracture or dislocation. Acromioclavicular degenerative changes present. Soft tissues are unremarkable. IMPRESSION: Acromioclavicular degenerative changes, with no acute osseous abnormality of the right shoulder. Reviewed, Interpreted and Dictated by Anitha Covington MD Transcribed by Tammy Velázquez Authenticated and [facility]
--- OUTSIDE RECORDS SUMMARY | 2025-04-22 10:05 | XMS_ITS | Clinical Summary ---
Author Organization Healthcare Address [address] [place] [address] Care Team Providers Care Delicatessen Clerk Name Role Phone Bandar Dela Cruz MD Primary Care Provider [phone] Family History Medical History Relation Name Comments [...] 12/22/2000 [facility]Y-Zoster Vaccines (1 of 2) 12/22/2005 [id number] Vaccine (1 - 20 24-25 season) 2025 [facility]Y-Influenza Vaccine (#1) 2025 [facility]Y-RSV Vaccine: 60+ [...] complete this topic Insurance MEDICARE Care Teams Delicatessen Clerk Relationship Specialty Start Date End Date Bandar Dela Cruz MD [address] [place] [id number] PCP - General 12/26/20
== END 2025-04-22 23:59 | disposition home or self-care (01) ==
LOC: RAD 10:03
PROVIDERS: PCP Internal Medicine Adolescent Medicine; Visit Provider Orthopaedic Surgery
DX: M19.011 Primary osteoarthritis, right shoulder (principal); M75.121 Complete rotator cuff tear or rupture of right shoulder, not specified as traumatic; Z98.890 Other specified postprocedural states
CPT/HCPCS: 73030